=== PATIENT | female | born 1940 | race Caucasian/White ===

== ENCOUNTER 2022-11-12 09:20 | Emergency (ER) | payer BC, MEDICARE, SELFPAY ==
--- NOTE | ~2022-11-12 | CT_ITS ---
EXAMINATION: CT HEAD WITHOUT CONTRAST CLINICAL INFORMATION: Fall, secondary head trauma COMPARISON: None TECHNIQUE: Contiguous axial imaging was performed from the skull base to vertex without intravenous administration of contrast. Additional 2-D coronal and sagittal reformatted images are generated on the CT workstation and uploaded to PACS. This CT examination was performed using dose optimization techniques as appropriate, variously including the following: *Automated exposure control *Adjustment of mA and/or kV according to patient size (this includes techniques or standardized protocols for targeted exams where dose is matched to indication/reason for exam; i.e. extremities or head) *Use of iterative reconstruction technique DLP: 390 mGy-cm FINDINGS: There is no intracranial hemorrhage, hematoma, or extra-axial fluid collection. The ventricles are normal in size. There is no hydrocephalus, edema, or mass effect. The farris-white matter differentiation appears well preserved . There are generalized atrophic changes with prominence of the cortical sulci and fissures and cisterns. There is no visible acute territorial infarct or mass lesion. The calvarium appears intact. There is no pneumocephalus or orbital emphysema. The visualized sinuses and middle ears and mastoid air cells show no significant mucosal thickening. There are no air-fluid levels. CT/CT head/brain wo IV con IMPRESSION: No acute intracranial abnormality.
--- NOTE | ~2022-11-12 | XR_ITS ---
EXAMINATION: PORTABLE CHEST 1 VIEW CLINICAL INFORMATION: Pneumonia? . COMPARISON: 11/12/2022. TECHNIQUE: Portable frontal view of the chest was obtained. FINDINGS: Lungs are mildly hypoexpanded in part related to the significant convex right thoracic and left thoracolumbar scoliotic curve. Chronic appearing reticular markings are again seen bilaterally with a distribution similar to the prior study. No focal superimposed infiltrate, effusion, overt edema, or pneumothorax. Cardiac silhouette within normal limits for the technique. XR/XR chest 1V IMPRESSION: Extensive chronic appearing changes similar to the prior study. No acute superimposed process when compared to the prior study.
--- NOTE | ~2022-11-12 | XR_ITS ---
EXAMINATION: XR KNEE, LEFT CLINICAL INFORMATION: Status post fall. Left knee pain COMPARISON: None TECHNIQUE: Four views of the left knee. FINDINGS: There is severe loss of medial and lateral compartment joint space with minimal medial subluxation of the joint. There is small to moderate joint effusion and superior patellar spurring. Mild osteopenia is noted. No acute fracture seen. XR/XR knee LT 2V IMPRESSION: 1. Severe degenerative changes medial and lateral compartment with mild medial subluxation of the knee joint. 2. Small to moderate joint effusion. 3. No acute fracture seen.
--- NOTE | ~2022-11-12 | XR_ITS ---
EXAMINATION: XR KNEE, RIGHT CLINICAL INFORMATION: Fall, trauma, pain COMPARISON: None TECHNIQUE: AP and crosstable lateral projections of the right knee are obtained. FINDINGS: Prior right knee arthroplasty. Hardware intact. Small suprapatellar effusion. No fracture, dislocation, destructive process, or osteolysis. No fat fluid level on crosstable lateral projection. XR/XR knee RT 2V IMPRESSION: 1. Right knee arthroplasty. Small suprapatellar effusion. No fat-fluid level. 2. No fracture, dislocation, destructive process.
--- NOTE | ~2022-11-12 | XR_ITS ---
EXAMINATION: XR CHEST CLINICAL INFORMATION: Fall, trauma. COMPARISON: None TECHNIQUE: Upright AP view of the chest was obtained. FINDINGS: There are low lung volumes. No pneumothorax, airspace consolidation, or effusion. Mild cardiomegaly. Normal vascularity. No airspace consolidation or groundglass opacity or air bronchograms. The hilar and mediastinal contours are unremarkable. There is a prominent dextrocurvature thoracic spine and a levocurvature of thoracolumbar spine. XR/XR chest 1V IMPRESSION: Low lung volumes. No acute intrathoracic disease.
--- NOTE | ~2022-11-12 | CT_ITS ---
EXAMINATION: CT CERVICAL SPINE WITHOUT CONTRAST CLINICAL INFORMATION: Fall, trauma COMPARISON: CT head 11/12/2022. TECHNIQUE: Multidetector volumetric CT imaging of the cervical spine is performed without contrast in the axial plane. Additional 2D reformatted coronal and sagittal images are generated on the CT workstation and uploaded to PACS. This CT examination was performed using dose optimization techniques as appropriate, variously including the following: *Automated exposure control *Adjustment of mA and/or kV according to patient size (this includes techniques or standardized protocols for targeted exams where dose is matched to indication/reason for exam; i.e. extremities or head) *Use of iterative reconstruction technique DLP: 745 mGy-cm FINDINGS: There is no vertebral compression or visible fracture. No prevertebral soft tissue swelling. The craniocervical junction appears normal. The odontoid appears intact. There are multilevel degenerative disc and degenerative facet changes with variable moderate to prominent disc narrowing and vertebral spurring. There is borderline grade 0-1 spondylolisthesis C2 on C3 and borderline grade 0-1 spondylolisthesis at C7-T1. No perched facet. No apical pneumothorax or pneumomediastinum. CT/CT cervical spine wo IV con IMPRESSION: 1. No acute bony abnormality or prevertebral soft tissue swelling. 2. Multilevel degenerative disc and degenerative facet changes. 3. Borderline grade 0-1 spondylolisthesis C2-C3 and at C7-T1.
[2022-11-12 09:23] VITALS: BP 141/66; PULSE 60; RESP 16; TEMP 36.3; O2SAT 98; BMI 38.9
--- NOTE | 2022-11-12 10:25 | ECG_ITS ---
Test Reason : falls Blood Pressure : / mmHG Vent. Rate : 059 BPM Atrial Rate : 000 BPM P-R Int : 000 ms QRS Dur : 118 ms QT Int : 428 ms P-R-T Axes : 000 -57 041 degrees QTc Int : 423 ms Atrial fibrillation with slow ventricular response Left axis deviation Minimal voltage criteria for LVH, may be normal variant ( Iglesia product ) Anteroseptal infarct , age undetermined Abnormal ECG No previous ECGs available Referred By: Anya Sellers Electronically Signed By:ADRIAN HIDALGO
[2022-11-12 11:17] LABS: MANUAL DIFF FLAG NO
[2022-11-12 11:19] LABS: Basophils Percent Auto 0.3 % (0-2); Eosinophils Absolute Auto 0.2 X10*3/uL (0.0-0.4); Eosinophils Percent Auto 2.9 % (0-4); Hematocrit 36.5 % (37.0-47.0); Hemoglobin 11.9 g/dl (12.0-16.0); Imm Gran Abs Auto 0.02 X10*3/uL (0.00-0.03); Imm Gran Pct Auto 0.3 % (0.0-0.4); Lymphocytes Absolute Auto 1.3 X10*3/uL (1.2-4.9); Lymphocytes Percent Auto 22.1 % (20-40); Mean Corpuscular HGB Conc 32.6 g/dl (31.0-35.0); Mean Corpuscular Hemoglobin 30.4 pg (27.0-33.0); Mean Corpuscular Volume 93.4 fL (80.0-98.0); Mean Platelet Volume 8.6 fL (9.4-12.3); Monocytes Absolute Auto 0.5 X10*3/uL (0.1-1.2); Monocytes Percent Auto 8.5 % (2-11); Neutrophils Absolute Auto 3.8 x10*3/uL (2.0-8.3); Neutrophils Percent Auto 65.9 % (45-73); Platelet Count 202 X10*3/uL (160-400); Red Blood Count 3.91 X10*6/uL (4.20-5.50); Red Cell Distribution Width 14.6 % (11.0-16.0); White Blood Count 5.8 X10*3/uL (4.8-10.8)
[2022-11-12 11:26] LABS: Prothrombin Time 11.3 SEC (10.0-13.1)
[2022-11-12 11:48] VITALS: BP 157/54; PULSE 71; RESP 15; TEMP 36.6; O2SAT 96
--- NOTE | 2022-11-12 11:48 | ED.FALL ---
HPI - Fall General Chief Complaint: Fall <DONNA Wayne Last Filed: 11/12/22 17:26> Stated Complaint: Fall/L knee pain <DONNA Wayne Last Filed: 11/12/22 17:26> Time Seen by Provider: 11/12/22 09:49 <DONNA Wayne Last Filed: 11/12/22 17:26> Source: patient and family <DONNA Wanye Last Filed: 11/12/22 17:26> Mode of arrival: ambulatory <DONNA Wayne Last Filed: 11/12/22 17:26> History of Present Illness HPI Narrative: 82-year-old female with a past medical history of dementia, presenting to ED s/p being found on the floor by family this morning. Patient lives home alone, last seen yesterday afternoon, found on the ground on bilateral knees this morning. per family patient at her baseline at present. Patient offers no complaints at present, no evidence of trauma. Daughter/ sister looking for more help at home as patient becoming increasingly forgetful, forgets to use her cane / walker with increasing falls. Unknown head trauma or LOC. Family denies recent URI symptoms. Denies taking anticoagulation <DONNA Wayne Last Filed: 11/12/22 17:26> MD complaint: fall <DONNA Wayne Last Filed: 11/12/22 17:26> Onset (ago): unknown <DONNA Wayne Last Filed: 11/12/22 17:26> Related Data Home Medications: Home Medications Medication Instructions Recorded Confirmed acetaminophen 500 mg tablet 500 mg PO BID 11/12/22 11/12/22 amlodipine 10 mg tablet 1 tab PO DAILY 11/12/22 11/12/22 atenolol 100 mg tablet 1 tab PO DAILY 11/12/22 11/12/22 celecoxib 200 mg capsule 1 cap PO BID 11/12/22 11/12/22 furosemide 40 mg tablet 1 tab PO DAILY 11/12/22 11/12/22 loperamide 2 mg tablet 3 mg PO TID PRN Diarrhea 11/12/22 11/12/22 losartan 100 mg tablet 1 tab PO DAILY 11/12/22 11/12/22 octreotide,microspheres 30 mg 60 mg IM Q30D 11/12/22 11/12/22 intramuscular susp, extended release (Sandostatin LAR Depot) olanzapine 7.5 mg tablet 1 tab PO DAILY 11/12/22 11/12/22 omeprazole 20 mg capsule,delayed 1 cap PO DAILY 11/12/22 11/12/22 release sertraline 100 mg tablet 1 tab PO DAILY 11/12/22 11/12/22 telotristat ethyl 250 mg tablet 250 tab PO TID 11/12/22 11/12/22 (Xermelo) <DONNA Wayne - Last Filed: 11/12/22 17:26> Allergies/Adverse Reactions: Allergies Allergy/AdvReac Type Severity Reaction Status Date / Time No Known Allergies Allergy Verified 11/12/22 09:23 <DONNA Wayne - Last Filed: 11/12/22 17:26> Review of Systems Review of Systems: ROS limited secondary to patient's baseline mental status <DONNA Wayne - Last Filed: 11/12/22 17:26> Yes all other systems are reviewed and are negative <DONNA Wayne - Last Filed: 11/12/22 17:26> Constitutional: Constitutional: Reports as per HPI <DONNA Wayne - Last Filed: 11/12/22 17:26> [facility] Past Medical History Attestation statement: The following information was validated with the patient. <DONNA Wayne - Last Filed: 11/12/22 17:26> Social History Social History: Social History Alcohol intake: unknown Use of substances other than those prescribed or required for medical reasons: Unknown Advance Directives: Yes Advance Directives on File: No <DONNA Wayne - Last Filed: 11/12/22 17:26> Physical Exam Vital Signs: Vital Signs: Last Vital Signs Temp 98.0 F 11/14/22 05:30 Pulse 72 11/14/22 05:30 Resp 16 11/14/22 05:30 BP 148/78 H 11/14/22 05:30 Pulse Ox 96 11/14/22 05:30 O2 Del Method 11/14/22 05:30 BMI result Body Mass Index 38.9 <Anya Sellers PA - Last Filed: 11/12/22 17:26> Vital Signs: Last Vital Signs Temp 98.0 F 11/14/22 05:30 Pulse 72 11/14/22 05:30 Resp 16 11/14/22 05:30 BP 148/78 H 11/14/22 05:30 Pulse Ox 96 11/14/22 05:30 O2 Del Method 11/14/22 05:30 BMI result Body Mass Index 38.9 <Janene Caal PA - Last Filed: 11/12/22 20:00> Const: General: cooperative and no acute distress <Anya Sellers PA - Last Filed: 11/12/22 17:26> Limitations: other limitations (baseline dementia) <DONNA Wayne - Last Filed: 11/12/22 17:26> HEENT: Head: Yes normal to inspection, Yes atraumatic, No Lundberg's sign and No raccoon eyes <Anya Sellers PA - Last Filed: 11/12/22 17:26> Ears: hearing grossly normal bilaterally <Anya Sellers PA - Last Filed: 11/12/22 17:26> General nose exam: Normal external nose present <DONNA Wayne - Last Filed: 11/12/22 17:26> Face and sinus: Yes normal facial exam <Anya Sellers PA - Last Filed: 11/12/22 17:26> Mouth: Normal oral and palatal mucosa present <DONNA Wayne - Last Filed: 11/12/22 17:26> Throat: Yes posterior oropharynx normal <Anya Sellers PA - Last Filed: 11/12/22 17:26> Eyes: General: appearance normal, both eyes and all related structures <DONNA Wayne - Last Filed: 11/12/22 17:26> Pupils: Equal, round and reactive pupils present <Anya Sellers PA - Last Filed: 11/12/22 17:26> EOM: EOMs intact bilaterally <DONNA Wayne - Last Filed: 11/12/22 17:26> Neck: Neck: Yes normal visual inspection and Yes no meningeal signs <DONNA Wayne Last Filed: 11/12/22 17:26> Resp: Effort & Inspection: normal respiratory effort and no respiratory distress <Anya Sellers PA - Last Filed: 11/12/22 17:26> Auscultation: clear to auscultation bilaterally, no crackles, no rales, no rhonchi and no wheezes <Anya Sellers PA - Last Filed: 11/12/22 17:26> Cardio: Rate: regular rate <Anya Sellers PA - Last Filed: 11/12/22 17:26> Heart sounds: S1 normal heart sound present and S2 normal heart sound present <Anya Sellers PA - Last Filed: 11/12/22 17:26> GI: Inspection: Yes normal to inspection <Anya Sellers PA - Last Filed: 11/12/22 17:26> Palpation (GI): Soft to palpation, nontender, no guarding and not rigid <Anya Sellers PA - Last Filed: 11/12/22 17:26> Back/Spine/Pelvis: Other: No midline thoracic/lumbar spinous tenderness/step-off or deformity <Anya Sellers PA - Last Filed: 11/12/22 17:26> Skin: Rashes: no rashes <Anya Sellers PA - Last Filed: 11/12/22 17:26> Wounds: no wounds <Anya Sellers PA - Last Filed: 11/12/22 17:26> Neuro: Other: Oriented to person and place (baseline) <Anya Sellers PA - Last Filed: 11/12/22 17:26> General: tone normal, moves all extremities, no meningeal signs, no focal motor deficits and CN's II-XI intact bilaterally <Anya Sellers PA - Last Filed: 11/12/22 17:26> Cranial nerves: Yes Equal, round and reactive pupils present <Anya Sellers PA - Last Filed: 11/12/22 17:26> Extrem: Other: pelvis stable. <Anya Sellers PA - Last Filed: 11/12/22 17:26> General: Yes normal to inspection <Anya Sellers PA - Last Filed: 11/12/22 17:26> Right upper extremity: normal to inspection <DONNA Wayne Last Filed: 11/12/22 17:26> Left upper extremity: normal to inspection <DONNA Wayne Last Filed: 11/12/22 17:26> Right lower extremity: normal to inspection <DONNA Wayne Last Filed: 11/12/22 17:26> Left lower extremity: normal to inspection <DONNA Wayne Last Filed: 11/12/22 17:26> Course Course Course Narrative: -1235-- no leukocytosis. H&H stable. BUN elevated to 38. Initial troponin mildly elevated to 6.1 > will obtain 3 hr repeat. BNP 279 XR knee RT 2V IMPRESSION: 1. Right knee arthroplasty. Small suprapatellar effusion. No fat-fluid level. 2. No fracture, dislocation, destructive process. XR knee LT 2V IMPRESSION: 1.? Severe degenerative changes medial and lateral compartment with mild medial subluxation of the knee joint. 2.? Small to moderate joint effusion. 3. ? No acute fracture seen. XR chest 1V IMPRESSION: Low lung volumes. No acute intrathoracic disease. CT head/brain wo IV con IMPRESSION: No acute intracranial abnormality. CT cervical spine wo IV con IMPRESSION: 1. No acute bony abnormality or prevertebral soft tissue swelling. 2. Multilevel degenerative disc and degenerative facet changes. 3. Borderline grade 0-1 spondylolisthesis C2-C3 and at C7-T1. - physical therapy evaluated patient and recommended short-term rehab with transition to long-term rehab/ increased level of care as needed - patient placed in physician observation as needs more time to be evaluated by Case Management for placement -1800--ED care transferred to DONNA Soriano pending CM placement <DONNA Wayne Last Filed: 11/12/22 17:26> Reevaluation(s) Reevaluation #1: I got called to the bedside as patient appears to be altered according to the nurse taking care of this patient. I evaluated patient, patient is restless, is getting up, concerns for possible fall, unable to sleep, for this reason Haldol, Ativan and Benadryl have been put in. I do not suspect any acute processes. Likely dementia/sundowning. <DONNA Fuller - Last Filed: 11/12/22 20:00> Time: 20:00 <DONNA Fuller - Last Filed: 11/12/22 20:00> Medications Administered Generic Name Dose Route Start Last Admin Trade Name Travonq PRN Reason Stop Dose Admin Acetaminophen 650 mg 11/12/22 21:00 11/13/22 20:24 Acetaminophen 325 Mg Tablet PO 650 mg BID KRISTINA Administration Amlodipine Besylate 10 mg 11/13/22 09:00 11/13/22 10:33 Amlodipine Besylate 10 Mg Tablet PO 10 mg DAILY KRISTINA Administration Protocol Atenolol 100 mg 11/13/22 09:00 11/13/22 11:11 Atenolol 100 Mg Tablet PO 100 mg DAILY KRISTINA Administration Protocol Celecoxib 200 mg 11/12/22 21:00 11/13/22 20:24 Celecoxib 200 Mg Capsule PO 200 mg BID KRISTINA Administration Furosemide 40 mg 11/13/22 09:00 11/13/22 09:34 Furosemide 40 Mg Tablet PO 40 mg DAILY KRISTINA Administration Protocol Loperamide HCl 2 mg 11/12/22 16:27 11/13/22 15:57 Loperamide Hcl 2 Mg Capsule PO 2 mg TID PRN Administration Diarrhea Losartan Potassium 100 mg 11/13/22 09:00 11/13/22 10:19 Losartan Potassium 50 Mg Tablet PO 100 mg DAILY KRISTINA Administration Protocol Olanzapine 7.5 mg 11/13/22 09:00 11/13/22 10:21 Olanzapine 7.5 Mg Tablet PO 7.5 mg DAILY KRISTINA Administration Omeprazole 20 mg 11/13/22 06:30 11/14/22 08:11 Omeprazole 20 Mg Capsule.Dr PO 20 mg DAILY@0630 KRISTINA Administration Sertraline HCl 100 mg 11/13/22 09:00 11/13/22 09:34 Sertraline Hcl 100 Mg Tablet PO 100 mg DAILY KRISTINA Administration Discontinued Medications Generic Name Dose Route Start Last Admin Trade Name Travonq PRN Reason Stop Dose Admin Diphenhydramine HCl 50 mg 11/12/22 19:58 11/12/22 20:19 Diphenhydramine Hcl 25 Mg Capsule PO 11/12/22 19:59 50 mg ONCE ONE Administration Haloperidol 5 mg 11/12/22 19:58 11/12/22 21:37 Haloperidol 5 Mg Tablet PO 11/12/22 19:59 5 mg ONCE ONE Administration Lorazepam 1 mg 11/12/22 19:58 11/12/22 20:20 Lorazepam 1 Mg Tablet PO 11/12/22 19:59 1 mg ONCE ONE Administration Octreotide Acetate 60 mg 11/12/22 16:00 11/12/22 18:11 Octreotide Acetate,Mi-Spheres 30 Mg Kit IM Not Given Q30D KRISTINA Olanzapine 7.5 mg 11/12/22 15:46 11/12/22 16:17 Olanzapine 2.5 Mg Tablet PO 11/12/22 15:47 7.5 mg ONCE ONE Administration <DONNA Wayne - Last Filed: 11/12/22 17:26> Medications Administered Generic Name Dose Route Start Last Admin Trade Name Freq PRN Reason Stop Dose Admin Acetaminophen 650 mg 11/12/22 21:00 11/13/22 20:24 Acetaminophen 325 Mg Tablet PO 650 mg BID KRISTINA Administration Amlodipine Besylate 10 mg 11/13/22 09:00 11/13/22 10:33 Amlodipine Besylate 10 Mg Tablet PO 10 mg DAILY KRISTINA Administration Protocol Atenolol 100 mg 11/13/22 09:00 11/13/22 11:11 Atenolol 100 Mg Tablet PO 100 mg DAILY KRISTINA Administration Protocol Celecoxib 200 mg 11/12/22 21:00 11/13/22 20:24 Celecoxib 200 Mg Capsule PO 200 mg BID KRISTINA Administration Furosemide 40 mg 11/13/22 09:00 11/13/22 09:34 Furosemide 40 Mg Tablet PO 40 mg DAILY KRISTINA Administration Protocol Loperamide HCl 2 mg 11/12/22 16:27 11/13/22 15:57 Loperamide Hcl 2 Mg Capsule PO 2 mg TID PRN Administration Diarrhea Losartan Potassium 100 mg 11/13/22 09:00 11/13/22 10:19 Losartan Potassium 50 Mg Tablet PO 100 mg DAILY KRISTINA Administration Protocol Olanzapine 7.5 mg 11/13/22 09:00 11/13/22 10:21 Olanzapine 7.5 Mg Tablet PO 7.5 mg DAILY KRISTINA Administration Omeprazole 20 mg 11/13/22 06:30 11/14/22 08:11 Omeprazole 20 Mg Capsule.Dr PO 20 mg DAILY@0630 KRISTINA Administration Sertraline HCl 100 mg 11/13/22 09:00 11/13/22 09:34 Sertraline Hcl 100 Mg Tablet PO 100 mg DAILY KRISTINA Administration Discontinued Medications Generic Name Dose Route Start Last Admin Trade Name Esperanza PRN Reason Stop Dose Admin Diphenhydramine HCl 50 mg 11/12/22 19:58 11/12/22 20:19 Diphenhydramine Hcl 25 Mg Capsule PO 11/12/22 19:59 50 mg ONCE ONE Administration Haloperidol 5 mg 11/12/22 19:58 11/12/22 21:37 Haloperidol 5 Mg Tablet PO 11/12/22 19:59 5 mg ONCE ONE Administration Lorazepam 1 mg 11/12/22 19:58 11/12/22 20:20 Lorazepam 1 Mg Tablet PO 11/12/22 19:59 1 mg ONCE ONE Administration Octreotide Acetate 60 mg 11/12/22 16:00 11/12/22 18:11 Octreotide Acetate,Mi-Spheres 30 Mg Kit IM Not Given Q30D KRISTINA Olanzapine 7.5 mg 11/12/22 15:46 11/12/22 16:17 Olanzapine 2.5 Mg Tablet PO 11/12/22 15:47 7.5 mg ONCE ONE Administration <DONNA Fuller - Last Filed: 11/12/22 20:00> Medical Decision Making Medical Decision Making MDM Narrative: 82-year-old female with a past medical history of dementia, presenting to ED s/p being found on the floor by family this morning. On exam vital signs stable, NAD, nontoxic appearing, mentating at baseline, no evidence of trauma, no midline spinous tenderness throughout, moving all extremities. Concern for frequent falls with progressive dementia vs rhabdomyolysis. Rule out metabolic and infectious etiologies. Rule out ICH. Low suspicion for severe sepsis this time plan: EKG, labs, UA, CXR, head/C-spine CT, PT/case management consult Please refer to course for remaining clinical decision making, interpretation of labs/imaging results, and discussions with consultants and/or family members. <DONNA Wayne - Last Filed: 11/12/22 17:26> Differential Diagnosis Differential Diagnoses: The differential diagnosis associated with the presentation includes <DONNA Wayne - Last Filed: 11/12/22 17:26> as above <DONNA Wayne - Last Filed: 11/12/22 17:26> Admission/Observation Consideration of admission/observation: Escalation of care including admission/observation considered <DONNA Wayne - Last Filed: 11/12/22 17:26> Consult Healthcare Provider Management of the patient was discussed with: Combination Building Inspector <DONNA Wayne - Last Filed: 11/12/22 17:26> Lab Data MDM Lab Attestation statement: I reviewed the patient's lab results. <DONNA Wayne - Last Filed: 11/12/22 17:26> Result Diagrams: 11/12/22 11:10 11/12/22 11:10 <DONNA Wayne - Last Filed: 11/12/22 17:26> Labs: Lab Results 11/12/22 11/12/22 11/12/22 Range/Units 11:10 11:10 11:10 WBC 5.8 (4.8-10.8) X10*3/uL RBC 3.91 L (4.20-5.50) X10*6/uL Hgb 11.9 L (12.0-16.0) g/dl Hct 36.5 L (37.0-47.0) % MCV 93.4 (80.0-98.0) fL MCH 30.4 (27.0-33.0) pg MCHC 32.6 (31.0-35.0) g/dl RDW 14.6 (11.0-16.0) % Plt Count 202 (160-400) X10*3/uL MPV 8.6 L (9.4-12.3) fL Immature Gran % (Auto) 0.3 (0.0-0.4) % Neut % (Auto) 65.9 (45-73) % Lymph % (Auto) 22.1 (20-40) % [place] % (Auto) 8.5 (2-11) % Eos % (Auto) 2.9 (0-4) % Baso % (Auto) 0.3 (0-2) % Lymph # (Auto) 1.3 (1.2-4.9) X10*3/uL [place] # (Auto) 0.5 (0.1-1.2) X10*3/uL Eos # (Auto) 0.2 (0.0-0.4) X10*3/uL Baso # (Auto) 0.0 (0.0-0.2) X10*3/uL Abs Immat Gran (auto) 0.02 (0.00-0.03) X10*3/uL Absolute Neuts (auto) 3.8 (2.0-8.3) x10*3/uL Absolute Nucleated RBC 0.000 (0.0-0.012) X10*3/uL Nucleated RBC % (auto) 0.0 (0.0-0.2) /100WBC PT 11.3 (10.0-13.1) SEC INR 1.0 (0.9-1.1) Sodium 141 (135-145) mmol/L Potassium 4.9 (3.3-5.1) mmol/L Chloride 103 (96-108) mmol/L Carbon Dioxide 28 (22-29) mmol/L Anion Gap 15 (12-20) BUN 38 H (9-16) mg/dL Creatinine 1.16 (0.5-1.4) mg/dL Estim Creat Clear Calc 31.8 Estimated GFR 45 Random Glucose 109 (60-115) mg/dL Calcium 9.3 (8.4-10.2) mg/dL Magnesium 1.8 (1.6-2.6) mg/dL Total Bilirubin 0.2 (0.0-1.0) mg/dL Direct Bilirubin < 0.2 (0.0-0.5) mg/dL AST 19 (5-31) U/L ALT 7 (0-31) U/L Alkaline Phosphatase 137 H (39-117) U/L Ammonia (13-55) umol/L Total Creatine Kinase 94 (26-140) U/L Troponin I High Sens (<3.5-17.0) ng/L B-Natriuretic Peptide (<100) pg/mL Total Protein 6.5 (6.5-8.0) g/dL Albumin 3.8 (3.5-5.0) g/dL Urine Color Urine Appearance Urine pH (5.0-9.0) Ur Specific [place] (1.005-1.025) Urine Protein (Neg-Trace) mg/dL Urine Glucose (UA) (Negative) mg/dL Urine Ketones (Negative) mg/dL Urine Blood (Negative) Urine Nitrite (Negative) Ur Leukocyte Esterase (Negative) Urine RBC (0-2) /HPF Urine WBC (0-5) /HPF Ur Squamous Epith Cells (0-2) /HPF Urine Bacteria (None Seen) Hyaline Casts (0-2) /LPF Influenza Type A (PCR) (Negative) Influenza Type B (PCR) (Negative) RSV RNA Qual (PCR) (Negative) SARS-CoV-2 RNA (RT-PCR) (Negative) 11/12/22 11/12/22 11/12/22 Range/Units 11:10 11:10 11:27 WBC (4.8-10.8) X10*3/uL RBC (4.20-5.50) X10*6/uL Hgb (12.0-16.0) g/dl Hct (37.0-47.0) % MCV (80.0-98.0) fL MCH (27.0-33.0) pg MCHC (31.0-35.0) g/dl RDW (11.0-16.0) % Plt Count (160-400) X10*3/uL MPV (9.4-12.3) fL Immature Gran % (Auto) (0.0-0.4) % Neut % (Auto) (45-73) % Lymph % (Auto) (20-40) % [place] % (Auto) (2-11) % Eos % (Auto) (0-4) % Baso % (Auto) (0-2) % Lymph # (Auto) (1.2-4.9) X10*3/uL [place] # (Auto) (0.1-1.2) X10*3/uL Eos # (Auto) (0.0-0.4) X10*3/uL Baso # (Auto) (0.0-0.2) X10*3/uL Abs Immat Gran (auto) (0.00-0.03) X10*3/uL Absolute Neuts (auto) (2.0-8.3) x10*3/uL Absolute Nucleated RBC (0.0-0.012) X10*3/uL Nucleated RBC % (auto) (0.0-0.2) /100WBC PT (10.0-13.1) SEC INR (0.9-1.1) Sodium (135-145) mmol/L Potassium (3.3-5.1) mmol/L Chloride (96-108) mmol/L Carbon Dioxide (22-29) mmol/L Anion Gap (12-20) BUN (9-16) mg/dL Creatinine (0.5-1.4) mg/dL Estim Creat Clear Calc Estimated GFR Random Glucose (60-115) mg/dL Calcium (8.4-10.2) mg/dL Magnesium (1.6-2.6) mg/dL Total Bilirubin (0.0-1.0) mg/dL Direct Bilirubin (0.0-0.5) mg/dL AST (5-31) U/L ALT (0-31) U/L Alkaline Phosphatase (39-117) U/L Ammonia (13-55) umol/L Total Creatine Kinase (26-140) U/L Troponin I High Sens 6.1 (<3.5-17.0) ng/L B-Natriuretic Peptide 279 H (<100) pg/mL Total Protein (6.5-8.0) g/dL Albumin (3.5-5.0) g/dL Urine Color Urine Appearance Urine pH (5.0-9.0) Ur Specific [place] (1.005-1.025) Urine Protein (Neg-Trace) mg/dL Urine Glucose (UA) (Negative) mg/dL Urine Ketones (Negative) mg/dL Urine Blood (Negative) Urine Nitrite (Negative) Ur Leukocyte Esterase (Negative) Urine RBC (0-2) /HPF Urine WBC (0-5) /HPF Ur Squamous Epith Cells (0-2) /HPF Urine Bacteria (None Seen) Hyaline Casts (0-2) /LPF Influenza Type A (PCR) NEGATIVE (Negative) Influenza Type B (PCR) NEGATIVE (Negative) RSV RNA Qual (PCR) NEGATIVE (Negative) SARS-CoV-2 RNA (RT-PCR) NEGATIVE (Negative) 11/12/22 11/12/22 11/12/22 Range/Units 14:38 14:53 18:13 WBC (4.8-10.8) X10*3/uL RBC (4.20-5.50) X10*6/uL Hgb (12.0-16.0) g/dl Hct (37.0-47.0) % MCV (80.0-98.0) fL MCH (27.0-33.0) pg MCHC (31.0-35.0) g/dl RDW (11.0-16.0) % Plt Count (160-400) X10*3/uL MPV (9.4-12.3) fL Immature Gran % (Auto) (0.0-0.4) % Neut % (Auto) (45-73) % Lymph % (Auto) (20-40) % [place] % (Auto) (2-11) % Eos % (Auto) (0-4) % Baso % (Auto) (0-2) % Lymph # (Auto) (1.2-4.9) X10*3/uL [place] # (Auto) (0.1-1.2) X10*3/uL Eos # (Auto) (0.0-0.4) X10*3/uL Baso # (Auto) (0.0-0.2) X10*3/uL Abs Immat Gran (auto) (0.00-0.03) X10*3/uL Absolute Neuts (auto) (2.0-8.3) x10*3/uL Absolute Nucleated RBC (0.0-0.012) X10*3/uL Nucleated RBC % (auto) (0.0-0.2) /100WBC PT (10.0-13.1) SEC INR (0.9-1.1) Sodium (135-145) mmol/L Potassium (3.3-5.1) mmol/L Chloride (96-108) mmol/L Carbon Dioxide (22-29) mmol/L Anion Gap (12-20) BUN (9-16) mg/dL Creatinine (0.5-1.4) mg/dL Estim Creat Clear Calc Estimated GFR Random Glucose (60-115) mg/dL Calcium (8.4-10.2) mg/dL Magnesium (1.6-2.6) mg/dL Total Bilirubin (0.0-1.0) mg/dL Direct Bilirubin (0.0-0.5) mg/dL AST (5-31) U/L ALT (0-31) U/L Alkaline Phosphatase (39-117) U/L Ammonia 43 (13-55) umol/L Total Creatine Kinase (26-140) U/L Troponin I High Sens 5.0 (<3.5-17.0) ng/L B-Natriuretic Peptide (<100) pg/mL Total Protein (6.5-8.0) g/dL Albumin (3.5-5.0) g/dL Urine Color Yellow Urine Appearance Clear Urine pH 5.5 (5.0-9.0) Ur Specific [place] 1.010 (1.005-1.025) Urine Protein Negative (Neg-Trace) mg/dL Urine Glucose (UA) Negative (Negative) mg/dL Urine Ketones Negative (Negative) mg/dL Urine Blood Trace H (Negative) Urine Nitrite Negative (Negative) Ur Leukocyte Esterase Negative (Negative) Urine RBC 0-2 (0-2) /HPF Urine WBC 0-5 (0-5) /HPF Ur Squamous Epith Cells 0-2 (0-2) /HPF Urine Bacteria None Seen (None Seen) Hyaline Casts 0-2 (0-2) /LPF Influenza Type A (PCR) (Negative) Influenza Type B (PCR) (Negative) RSV RNA Qual (PCR) (Negative) SARS-CoV-2 RNA (RT-PCR) (Negative) <DONNA Wayne - Last Filed: 11/12/22 17:26> Lab Results 11/12/22 11/12/22 11/12/22 Range/Units 11:10 11:10 11:10 WBC 5.8 (4.8-10.8) X10*3/uL RBC 3.91 L (4.20-5.50) X10*6/uL Hgb 11.9 L (12.0-16.0) g/dl Hct 36.5 L (37.0-47.0) % MCV 93.4 (80.0-98.0) fL MCH 30.4 (27.0-33.0) pg MCHC 32.6 (31.0-35.0) g/dl RDW 14.6 (11.0-16.0) % Plt Count 202 (160-400) X10*3/uL MPV 8.6 L (9.4-12.3) fL Immature Gran % (Auto) 0.3 (0.0-0.4) % Neut % (Auto) 65.9 (45-73) % Lymph % (Auto) 22.1 (20-40) % [place] % (Auto) 8.5 (2-11) % Eos % (Auto) 2.9 (0-4) % Baso % (Auto) 0.3 (0-2) % Lymph # (Auto) 1.3 (1.2-4.9) X10*3/uL [place] # (Auto) 0.5 (0.1-1.2) X10*3/uL Eos # (Auto) 0.2 (0.0-0.4) X10*3/uL Baso # (Auto) 0.0 (0.0-0.2) X10*3/uL Abs Immat Gran (auto) 0.02 (0.00-0.03) X10*3/uL Absolute Neuts (auto) 3.8 (2.0-8.3) x10*3/uL Absolute Nucleated RBC 0.000 (0.0-0.012) X10*3/uL Nucleated RBC % (auto) 0.0 (0.0-0.2) /100WBC PT 11.3 (10.0-13.1) SEC INR 1.0 (0.9-1.1) Sodium 141 (135-145) mmol/L Potassium 4.9 (3.3-5.1) mmol/L Chloride 103 (96-108) mmol/L Carbon Dioxide 28 (22-29) mmol/L Anion Gap 15 (12-20) BUN 38 H (9-16) mg/dL Creatinine 1.16 (0.5-1.4) mg/dL Estim Creat Clear Calc 31.8 Estimated GFR 45 Random Glucose 109 (60-115) mg/dL Calcium 9.3 (8.4-10.2) mg/dL Magnesium 1.8 (1.6-2.6) mg/dL Total Bilirubin 0.2 (0.0-1.0) mg/dL Direct Bilirubin < 0.2 (0.0-0.5) mg/dL AST 19 (5-31) U/L ALT 7 (0-31) U/L Alkaline Phosphatase 137 H (39-117) U/L Ammonia (13-55) umol/L Total Creatine Kinase 94 (26-140) U/L Troponin I High Sens (<3.5-17.0) ng/L B-Natriuretic Peptide (<100) pg/mL Total Protein 6.5 (6.5-8.0) g/dL Albumin 3.8 (3.5-5.0) g/dL Urine Color Urine Appearance Urine pH (5.0-9.0) Ur Specific [place] (1.005-1.025) Urine Protein (Neg-Trace) mg/dL Urine Glucose (UA) (Negative) mg/dL Urine Ketones (Negative) mg/dL Urine Blood (Negative) Urine Nitrite (Negative) Ur Leukocyte Esterase (Negative) Urine RBC (0-2) /HPF Urine WBC (0-5) /HPF Ur Squamous Epith Cells (0-2) /HPF Urine Bacteria (None Seen) Hyaline Casts (0-2) /LPF Influenza Type A (PCR) (Negative) Influenza Type B (PCR) (Negative) RSV RNA Qual (PCR) (Negative) SARS-CoV-2 RNA (RT-PCR) (Negative) 11/12/22 11/12/22 11/12/22 Range/Units 11:10 11:10 11:27 WBC (4.8-10.8) X10*3/uL RBC (4.20-5.50) X10*6/uL Hgb (12.0-16.0) g/dl Hct (37.0-47.0) % MCV (80.0-98.0) fL MCH (27.0-33.0) pg MCHC (31.0-35.0) g/dl RDW (11.0-16.0) % Plt Count (160-400) X10*3/uL MPV (9.4-12.3) fL Immature Gran % (Auto) (0.0-0.4) % Neut % (Auto) (45-73) % Lymph % (Auto) (20-40) % [place] % (Auto) (2-11) % Eos % (Auto) (0-4) % Baso % (Auto) (0-2) % Lymph # (Auto) (1.2-4.9) X10*3/uL [place] # (Auto) (0.1-1.2) X10*3/uL Eos # (Auto) (0.0-0.4) X10*3/uL Baso # (Auto) (0.0-0.2) X10*3/uL Abs Immat Gran (auto) (0.00-0.03) X10*3/uL Absolute Neuts (auto) (2.0-8.3) x10*3/uL Absolute Nucleated RBC (0.0-0.012) X10*3/uL Nucleated RBC % (auto) (0.0-0.2) /100WBC PT (10.0-13.1) SEC INR (0.9-1.1) Sodium (135-145) mmol/L Potassium (3.3-5.1) mmol/L Chloride (96-108) mmol/L Carbon Dioxide (22-29) mmol/L Anion Gap (12-20) BUN (9-16) mg/dL Creatinine (0.5-1.4) mg/dL Estim Creat Clear Calc Estimated GFR Random Glucose (60-115) mg/dL Calcium (8.4-10.2) mg/dL Magnesium (1.6-2.6) mg/dL Total Bilirubin (0.0-1.0) mg/dL Direct Bilirubin (0.0-0.5) mg/dL AST (5-31) U/L ALT (0-31) U/L Alkaline Phosphatase (39-117) U/L Ammonia (13-55) umol/L Total Creatine Kinase (26-140) U/L Troponin I High Sens 6.1 (<3.5-17.0) ng/L B-Natriuretic Peptide 279 H (<100) pg/mL Total Protein (6.5-8.0) g/dL Albumin (3.5-5.0) g/dL Urine Color Urine Appearance Urine pH (5.0-9.0) Ur Specific [place] (1.005-1.025) Urine Protein (Neg-Trace) mg/dL Urine Glucose (UA) (Negative) mg/dL Urine Ketones (Negative) mg/dL Urine Blood (Negative) Urine Nitrite (Negative) Ur Leukocyte Esterase (Negative) Urine RBC (0-2) /HPF Urine WBC (0-5) /HPF Ur Squamous Epith Cells (0-2) /HPF Urine Bacteria (None Seen) Hyaline Casts (0-2) /LPF Influenza Type A (PCR) NEGATIVE (Negative) Influenza Type B (PCR) NEGATIVE (Negative) RSV RNA Qual (PCR) NEGATIVE (Negative) SARS-CoV-2 RNA (RT-PCR) NEGATIVE (Negative) 11/12/22 11/12/22 11/12/22 Range/Units 14:38 14:53 18:13 WBC (4.8-10.8) X10*3/uL RBC (4.20-5.50) X10*6/uL Hgb (12.0-16.0) g/dl Hct (37.0-47.0) % MCV (80.0-98.0) fL MCH (27.0-33.0) pg MCHC (31.0-35.0) g/dl RDW (11.0-16.0) % Plt Count (160-400) X10*3/uL MPV (9.4-12.3) fL Immature Gran % (Auto) (0.0-0.4) % Neut % (Auto) (45-73) % Lymph % (Auto) (20-40) % [place] % (Auto) (2-11) % Eos % (Auto) (0-4) % Baso % (Auto) (0-2) % Lymph # (Auto) (1.2-4.9) X10*3/uL [place] # (Auto) (0.1-1.2) X10*3/uL Eos # (Auto) (0.0-0.4) X10*3/uL Baso # (Auto) (0.0-0.2) X10*3/uL Abs Immat Gran (auto) (0.00-0.03) X10*3/uL Absolute Neuts (auto) (2.0-8.3) x10*3/uL Absolute Nucleated RBC (0.0-0.012) X10*3/uL Nucleated RBC % (auto) (0.0-0.2) /100WBC PT (10.0-13.1) SEC INR (0.9-1.1) Sodium (135-145) mmol/L Potassium (3.3-5.1) mmol/L Chloride (96-108) mmol/L Carbon Dioxide (22-29) mmol/L Anion Gap (12-20) BUN (9-16) mg/dL Creatinine (0.5-1.4) mg/dL Estim Creat Clear Calc Estimated GFR Random Glucose (60-115) mg/dL Calcium (8.4-10.2) mg/dL Magnesium (1.6-2.6) mg/dL Total Bilirubin (0.0-1.0) mg/dL Direct Bilirubin (0.0-0.5) mg/dL AST (5-31) U/L ALT (0-31) U/L Alkaline Phosphatase (39-117) U/L Ammonia 43 (13-55) umol/L Total Creatine Kinase (26-140) U/L Troponin I High Sens 5.0 (<3.5-17.0) ng/L B-Natriuretic Peptide (<100) pg/mL Total Protein (6.5-8.0) g/dL Albumin (3.5-5.0) g/dL Urine Color Yellow Urine Appearance Clear Urine pH 5.5 (5.0-9.0) Ur Specific [place] 1.010 (1.005-1.025) Urine Protein Negative (Neg-Trace) mg/dL Urine Glucose (UA) Negative (Negative) mg/dL Urine Ketones Negative (Negative) mg/dL Urine Blood Trace H (Negative) Urine Nitrite Negative (Negative) Ur Leukocyte Esterase Negative (Negative) Urine RBC 0-2 (0-2) /HPF Urine WBC 0-5 (0-5) /HPF Ur Squamous Epith Cells 0-2 (0-2) /HPF Urine Bacteria None Seen (None Seen) Hyaline Casts 0-2 (0-2) /LPF Influenza Type A (PCR) (Negative) Influenza Type B (PCR) (Negative) RSV RNA Qual (PCR) (Negative) SARS-CoV-2 RNA (RT-PCR) (Negative) <DONNA Fuller - Last Filed: 11/12/22 20:00> Independent Interpretation I performed an independent interpretation of an: EKG ( my interpretation EKG AFib with rate of 59. Old inferior and anterior septal FL. No STEMI.) <DONNA Wayne - Last Filed: 11/12/22 17:26> Radiology Impression Discussion of test interpretation with radiology: I have reviewed the radiologist's reading. <DONNA Wayne - Last Filed: 11/12/22 17:26> Independent Historian daughter and sister <DONNA Wayne - Last Filed: 11/12/22 17:26> Discharge Plan Discharge Clinical Impression: Frequent falls, Dementia <DONNA Wayne - Last Filed: 11/12/22 17:26> Patient Disposition: Still a Patient <DONNA Wayne - Last Filed: 11/12/22 17:26> Prescriptions: No Action celecoxib 200 mg capsule 1 cap PO BID furosemide 40 mg tablet 1 tab PO DAILY atenolol 100 mg tablet 1 tab PO DAILY sertraline 100 mg tablet 1 tab PO DAILY olanzapine 7.5 mg tablet 1 tab PO DAILY amlodipine 10 mg tablet 1 tab PO DAILY omeprazole 20 mg capsule,delayed release(DR/EC) 1 cap PO DAILY losartan 100 mg tablet 1 tab PO DAILY Xermelo 250 mg tablet 250 tab PO TID loperamide 2 mg Tablet 3 mg PO TID PRN (Reason: Diarrhea) acetaminophen 500 mg Tablet 500 mg PO BID Sandostatin LAR Depot 30 mg suspension,extended rel recon 60 mg IM Q30D <DONNA Wayne - Last Filed: 11/12/22 17:26>
[2022-11-12 12:04] LABS: Alanine Aminotransferase 7 U/L (0-31); Albumin Level 3.8 g/dL (3.5-5.0); Alkaline Phosphatase 137 U/L (39-117); Anion Gap 15 (12-20); Aspartate Amino Transferase 19 U/L (5-31); B Type Natriuretic Peptide 279 pg/mL (<100); Bilirubin Direct < 0.2 mg/dL (0.0-0.5); Bilirubin Total 0.2 mg/dL (0.0-1.0); Blood Urea Nitrogen 38 mg/dL (9-16); Calcium 9.3 mg/dL (8.4-10.2); Carbon Dioxide 28 mmol/L (22-29); Chloride 103 mmol/L (96-108); Creatinine Clr Calc Pharmacy 31.8; Estimated Glomerular Filt Rate 45; Glucose Random 109 mg/dL (60-115); Magnesium 1.8 mg/dL (1.6-2.6); Potassium 4.9 mmol/L (3.3-5.1); Sodium 141 mmol/L (135-145); Total Protein 6.5 g/dL (6.5-8.0)
[2022-11-12 12:07] LABS: Troponin-I High Sensitivity 6.1 ng/L (<3.5-17.0)
--- NOTE | 2022-11-12 12:14 | PHA.MEDREC ---
Pharmacy Consult ? Medication Reconciliation Pharmacy has completed the medication reconciliation.
[2022-11-12 12:15] LABS: Influenza A PCR NEGATIVE (Negative); Influenza B PCR NEGATIVE (Negative); Resp Syncy Virus RNA Qual PCR NEGATIVE (Negative); SARS COV2 PCR INHOUSE NEGATIVE (Negative)
[2022-11-12 13:35] VITALS: BP 157/54; PULSE 71; O2SAT 96
[2022-11-12 14:54] LABS: Ammonia 43 umol/L (13-55)
--- NOTE | 2022-11-12 15:16 | MHC.CM.ED ---
Received case management consult from Anya THOMPSON. Patient to the ER due to a fall with knee pain. Work up essentially negative. Physical therapy eval completed. Short term rehab is recommended. Met with patient, daughter Teodora and sister, Vira. Patient lives alone, ambulates with a cane when she remembers and had no services prior to coming to the ER. PCP verified. Patient received 5 Pfizer vaccines. Family is requesting referral to [facility]. Referral made via [facility]. HCP provided by family is not valid because there is only 1 witness. Patient has dementia at baseline but is able to desingate her daughter and sister as health care proxies. HCP completed, signed and witnessed. Original given to patient. Continue to monitor for d/c needs.
[2022-11-12] MEDS: OLANZapine 2.5 MG TABLET 7.5 MG PO (16:17)
--- NOTE | 2022-11-12 17:21 | MHC.CM.ED ---
Addendum entered by Anita Gonzalez 11/12/22 18:56: CM called and left message with Joellen Alston, Warehouse Shipping Supervisor for [facility] ([phone]) regarding bed availability at facility. CM spoke with daughter, Teodora Siu ([phone]) at the bedside. Teodora is quite upset. Per Joellen, pt's primary insurance, [employer] has declined payment for STR. Pt has Medicare part A, but it is secondary. Teodora did ask facility if they could pay for a month of STR. Facility told her the monthly rate is $12,500. Family cannot pay privately. STR recommended STR with transition to LTC.Teodora is requesting referral to another facility. CM explained to Teodora that if insurance has denied payment, then it would be for any facility. She is very upset. Encouraged Teodora to call the insurance company an appeal the determination that STR will not be covered. Teodora called at 1630, insurance company was closed. Encouraged Teodora to call first thing in the morning. Pt will remain in ED over flow in hospital bed, awaiting insurance company determination. CM to follow for discharge planning. Original Note: CM received notification of no beds at [facility]. CM spoke with daughter, Teodora Siu. Teodora tells CM that they do have beds and her mother will be on the dementia unit.
[2022-11-12 18:20] LABS: Appearance Urine Clear; Color Urine Yellow; Glucose Urine UA Negative (Negative); Leukocyte Esterase Urine Negative (Negative); Nitrite Urine Negative (Negative); PH 5.5 (5.0-9.0); UMIC TRIGGER UACC YES; Urine Blood Trace (Negative); Urine Ketones Negative (Negative); Urine Protein Negative (Neg-Trace)
[2022-11-12 18:23] LABS: Bacteria Urine None Seen (None Seen); Hyaline Casts Urine 0-2 /LPF (0-2); RBC Urine 0-2 /HPF (0-2); Squamous Epithelial Cell Urine 0-2 /HPF (0-2); WBC Urine 0-5 /HPF (0-5)
[2022-11-12 19:27] VITALS: BP 161/76; BP 177/105; PULSE 75; PULSE 82
[2022-11-12 19:28] VITALS: BP 133/68; PULSE 115
--- NOTE | 2022-11-12 20:00 | PC.NURSE ---
This RN contacted by Julee RN. Julee expressing concern regarding pt, per Julee, she is confused and trying to get OOB. Julee requesting sitter. Christie THOMPSON going to [facility] to assess pt. Per Christie, plan for PO meds, pt has a hx of Dementia. Sitter @ bedside for safety concerns. Nursing railroad supervisor of engines aware.
[2022-11-12] MEDS: Acetaminophen 325 MG TABLET 650 MG PO (20:19)
[2022-11-12] MEDS: diphenhydrAMINE HCL 25 MG CAPSULE 50 MG PO (20:19)
[2022-11-12] MEDS: LORazepam 1 MG TABLET PO (20:20)
[2022-11-12] MEDS: Celecoxib 200 MG CAPSULE PO (20:20)
--- NOTE | 2022-11-12 21:07 | PC.NURSE ---
Per RN, pt resting in bed, appears calm after PO meds. Per Christie, pt no longer requires a sitter. Camera in place as a precaution.
[2022-11-12] MEDS: HaloperidoL 5 MG TABLET PO (21:37)
[2022-11-12 22:34] VITALS: BP 162/87; PULSE 79; RESP 16; TEMP 36.6; O2SAT 95
--- NOTE | 2022-11-12 22:36 | MHC.EDTECH ---
this pct just assumed care of patient at this time ,patient is very restless rn aware ,vitals sign taken .
--- NOTE | 2022-11-12 23:07 | MHC.EDTECH ---
patient asked to use bathroom ,was assisted unto bedside commode ,,but did not do anything ,assisted back to bed ,warm blanket given ,patient observer in room.
--- NOTE | 2022-11-12 23:56 | MHC.EDTECH ---
0000 ROUNDING DONE ,PATIENT AWAKE PLAYING WITH HER BLANKET ,SITTER AT BEDSIDE .
--- NOTE | 2022-11-13 00:24 | PC.NURSE ---
this rn assumed care of pt at 2300. pt was medicated by previous RN per dec. pt is resting in bed, turning self side to side, pulling at pillows/linens. sitter at bedside. camera on. bed alarm on. will continue to monitor pt.
--- NOTE | 2022-11-13 02:17 | MHC.EDTECH ---
PATIENT UP TO BEDSIDE COMMODE ,VOIDED LARGE AMOUNT OF URINE AN CARE GIVEN ,BACK IN BED ,SITTER AT BEDSIDE .
--- NOTE | 2022-11-13 04:06 | MHC.EDTECH ---
0400 rounding done ,patient awake in bed .sitter at bedside .
[2022-11-13 06:00] VITALS: BP 145/70; PULSE 72; RESP 16; TEMP 36.3; O2SAT 95
--- NOTE | 2022-11-13 06:00 | MHC.EDTECH ---
0600 ROUNDING AND VITALS SIGN TAKEN ,PATIENT ASLEEP AND CLEAN AND DRY ,SITTER AT BEDSIDE .
--- NOTE | 2022-11-13 07:53 | MHC.EDTECH ---
Pt out of bed. Able to assist to commode. Pt returned to bed. Bed in low, locked position. Bed alarm on.
[2022-11-13] MEDS: Acetaminophen 325 MG TABLET 650 MG PO ×2 (09:33→20:24)
[2022-11-13] MEDS: Sertraline HCL 100 MG TABLET PO (09:34)
[2022-11-13] MEDS: Omeprazole 20 MG CAPSULE.DR PO (09:34)
[2022-11-13] MEDS: Furosemide 40 MG TABLET PO (09:34)
--- NOTE | 2022-11-13 09:36 | MHC.EDTECH ---
Emptied cammode replaced liner. Lisette Horner
--- NOTE | 2022-11-13 09:45 | PC.NURSE ---
PT ALERT, ORIENTED TO SELF, SHE DENIES PAIN, PT REQUESTS TOILET, SHE WAS ASSISTED TO BEDSIDE COMMODE, A.M. CARE DONE, MEDS GIVEN DOCUMENTED.
--- NOTE | 2022-11-13 09:53 | MHC.EDTECH ---
Vitals: Hr 71, RR- 16, BP pt refused, O2- 97% RA
[2022-11-13 09:55] VITALS: BP 170/83; PULSE 87; RESP 16; O2SAT 97
[2022-11-13] MEDS: Losartan Potassium 50 MG TABLET 100 MG PO (10:19)
[2022-11-13] MEDS: Celecoxib 200 MG CAPSULE PO ×2 (10:20→20:24)
[2022-11-13] MEDS: OLANZapine 7.5 MG TABLET PO (10:21)
[2022-11-13] MEDS: amLODIPine Besylate 10 MG TABLET PO (10:33)
--- NOTE | 2022-11-13 10:45 | PC.NURSE ---
MEDS GIVEN LATE D/T NOT AVAILABLE [facility] PHARMACY WAS NOTIFIED BY THIS RN.
[2022-11-13] MEDS: atenoloL 100 MG TABLET PO (11:11)
--- NOTE | 2022-11-13 13:45 | MHC.CM.ED ---
Patient remains in ER [facility]. Received telephone call from patient's daughter, Teodora, stating she spoke with [facility] and they don't have anything in their system about insurance auth for STR. T/W left a message with Joellen, admissions and acquisition marketing manager requesting a return telephone call. Received additional telephone call from patient's daughter, Teodora, requesting referral to [facility]. Referral made. Facility does not have a female bed. Facility is also concerned patient's family wants patient in computer terminal operator care. Their business office would need to go over financials with family. Left another voicemail for Joellen at [facility] requesting return telephone call. Teodora is currently in overflow unit requesting to see CM. Unfortunately T/W is not able to physically meet with Teodora at this time. Margarita HUSSEIN has been made aware and asked to tell Teodora CM can call her if she doesn't want to wait to see case management. Continue to monitor for d/c needs.
--- NOTE | 2022-11-13 14:30 | PC.NURSE ---
PT'S DAUGHTER VISITING. SHE ASSISTED HER MOM TO THE COMMODE. DAUGHTER REQUESTED TO SPEAK WITH AVIONICS SYSTEM ENGINEER, KEENAN SHARMAFINANCE INSURANCE MANAGER AWARE.
--- NOTE | 2022-11-13 14:36 | MHC.CM.ED ---
Met with patient's daughter/HCP, Teodora, in regards to discharge planning. Teodora aware [facility] not able to offer a bed and [facility] does not have a female bed to offer. Teodora agreeable to referral being broadcasted in [facility]. Referral broadcasted. Continue to monitor for d/c needs.
[2022-11-13] MEDS: Loperamide HCl 2 MG CAPSULE PO (15:57)
[2022-11-13 17:28] VITALS: BP 133/68; PULSE 66; RESP 16; TEMP 36.4; O2SAT 97
--- NOTE | 2022-11-13 17:33 | PC.NURSE ---
2 EPISODES OF DIARRHEA, IMODIUM GIVEN DOCUMENTED, EFFECTIVENESS PENDING.
--- NOTE | 2022-11-13 18:02 | MHC.CM.ED ---
Spoke with pt daughter, Teodora on the telephone. Teodora is requesting CM speak with [facility] with regards to memory care bed. Request made in [facility]. Teodora is very stressed. Trying to do right by her mother. Teodora has been working with [facility] [employer] Dr[employer] Shar Agrawal and with [facility] to work on and complete MH application. Teodora aware that [facility] can only offer STR, no LTC. [facility]. Waiting to hear from [facility]. Medicare A should be covering STR per [employer]. CM will continue to follow for bed offers.
--- NOTE | 2022-11-13 20:30 | PC.NURSE ---
Addendum entered by Aleisha Jenkins RN 11/14/22 06:55: Report given to KEENAN Castillo Original Note: report received from KEENAN Avila pt alert and oriented x2 resting in bed no signs of acute distress notice close monitoring maintained breathing equally unlabored
[2022-11-14 05:30] VITALS: BP 148/78; PULSE 72; RESP 16; TEMP 36.7; O2SAT 96
[2022-11-14] MEDS: Omeprazole 20 MG CAPSULE.DR PO (08:11)
[2022-11-14 09:04] VITALS: BP 145/81; PULSE 84; RESP 16; TEMP 36.9; O2SAT 96
[2022-11-14] MEDS: Acetaminophen 325 MG TABLET 650 MG PO ×2 (09:45→20:17)
[2022-11-14] MEDS: atenoloL 100 MG TABLET PO (09:45)
[2022-11-14] MEDS: Furosemide 40 MG TABLET PO (09:46)
[2022-11-14] MEDS: Losartan Potassium 50 MG TABLET 100 MG PO (09:46)
[2022-11-14] MEDS: amLODIPine Besylate 10 MG TABLET PO (09:46)
[2022-11-14] MEDS: OLANZapine 7.5 MG TABLET PO (09:46)
[2022-11-14] MEDS: Sertraline HCL 100 MG TABLET PO (09:46)
--- NOTE | 2022-11-14 11:05 | MHC.CM.ED ---
Addendum entered by Simran Foster 11/14/22 12:51: [facility] retracted bed offer. Spoke with patient's daughter/HCP, Teodora, via telephone at [phone]. Teodora aware no other bed offers have been made at this time. Teodora does not feel patient can safely return home. Teodora agreeable to referral being broadcasted further out. Referral broadcasted within 50 miles. Original Note: Patient remains in ER. [facility] doesn't have a female bed. [facility] doesn't have a female bed. [facility] is willing to offer a bed for STR with the expectation that patient will transfer to another facility for intermediate teacher care because [facility] doesn't have a LTC. Spoke with patient's daughter/HCP, Teodora via telephone. Teodora agreeable to transfer to [facility]. [facility] booked for 1pm. Med nec with chart. Patient, daughter Teodora, Rhona RN and Odette THOMPSON aware. Continue to monitor for d/c needs.
[2022-11-14] MEDS: Celecoxib 200 MG CAPSULE PO ×2 (11:30→20:21)
--- NOTE | 2022-11-14 14:43 | MHC.CM.ED ---
Received telephone call from patient's daughter/HCP, Teodora. Teodora states she spoke with someone in [facility] office. Teodora no longer has funds to pay for placement for patient. Teodora also states The [email or web address] program will not be able to file patient's [facility] application until next month because they have reached their quota for the month.
[2022-11-14 17:26] VITALS: BP 128/78; PULSE 58; RESP 18; TEMP 36.3; O2SAT 95
--- NOTE | 2022-11-14 21:21 | MHC.CM.ED ---
JOSE ROBERTO spoke with daughter, Teodora at patient's bedside. Aware that Francisco J is reviewing and CM is waiting on 9 facilities in the [place] area. Teodora tells CM her mother is on a waiting list for [facility], but it has only been a few months. Teodora is working with a [employer] counselor to complete the MH application. She expects to submit the application on Saturday11/19/22. Enc Teodora to keep CM informed of her progress. Teodora is aware that there are limited LTC beds available. Teodora tells JOSE ROBERTO she cannot care for her mother at home and does not have funds for 13/05 care. CM continuing to follow for discharge planning.
[2022-11-14 21:58] VITALS: BP 139/69; PULSE 57; RESP 18; TEMP 36.9; O2SAT 95
[2022-11-15] VITALS: BP 138/78; PULSE 71; RESP 20; TEMP 36.4; O2SAT 94
[2022-11-15] MEDS: Omeprazole 20 MG CAPSULE.DR PO (05:40)
[2022-11-15 06:00] VITALS: BP 125/67; PULSE 68; RESP 16; TEMP 36.8; O2SAT 94
[2022-11-15] MEDS: Acetaminophen 325 MG TABLET 650 MG PO ×2 (10:12→20:18)
[2022-11-15] MEDS: OLANZapine 7.5 MG TABLET PO (10:12)
[2022-11-15] MEDS: Sertraline HCL 100 MG TABLET PO (10:12)
[2022-11-15] MEDS: amLODIPine Besylate 10 MG TABLET PO (10:12)
[2022-11-15] MEDS: Celecoxib 200 MG CAPSULE PO ×2 (10:12→20:18)
[2022-11-15] MEDS: Furosemide 40 MG TABLET PO (10:12)
[2022-11-15] MEDS: atenoloL 100 MG TABLET PO (10:12)
[2022-11-15] MEDS: Losartan Potassium 50 MG TABLET 100 MG PO (10:13)
[2022-11-15 16:18] VITALS: BP 141/73; PULSE 75; TEMP 36.9; O2SAT 95
--- NOTE | 2022-11-15 19:24 | MHC.CM.ED ---
Spoke with daughter Teodora Siu at her request. Teodora has been working with [facility] to complete MH fabiola. Expects MH fabiola to be completed hopefully by tomorrow, Saturday at the latest. Shazia Smith from [facility] was at [facility] today and according to Teodora, spoke with Shazia Rajput (nurse administrator) and Sona Lawson (S.W.) who informed her that there was 1 female dementia bed open. Teodora is willing to speak with anyone at the facility and to share any needed financials with the facility, pending MH fabiola approval. Request sent to [facility]Note 3[facility] via [id number].
[2022-11-15 20:08] VITALS: BP 124/70; PULSE 64; RESP 20; TEMP 36.9; O2SAT 96
[2022-11-15] MEDS: Loperamide HCl 2 MG CAPSULE PO (20:20)
--- NOTE | 2022-11-15 22:46 | PC.NURSE ---
Assumed care of patient approx. 1900. Patient is alert, arousable, confused, follows commands, SCHWARZ weakly. No behavioral or verbal indicator of pain. +pulses, warm, -edema. No IV access/not required. LS CTA bilaterally, remains on RA. Patient experienced *2 large, loose/soft stools thus far. Recvd PRN loperamide to assist. +BS*4, soft, NT/ND. Voiding in commode. Note patient has right elbow erythema, non-tender; negative sign of infection. Skin is C/D/I, no breaks noted. Bedisde sitter to maintain patient safety secondary to impulsiveness, confusion to situation and surroundings. Immediate care needs addressed. Presently in bed resting.
[2022-11-16 01:36] VITALS: BP 152/85; PULSE 79; RESP 18; TEMP 36.7; O2SAT 95
--- NOTE | 2022-11-16 03:14 | MHC.EDTECH ---
pt is resting peacefully and she has a 1:1 sitting with her
[2022-11-16] MEDS: Sertraline HCL 100 MG TABLET PO (09:28)
[2022-11-16] MEDS: Losartan Potassium 50 MG TABLET 100 MG PO (09:28)
[2022-11-16 09:29] VITALS: BP 125/83; PULSE 75; RESP 15; TEMP 36.6; O2SAT 93
[2022-11-16] MEDS: atenoloL 100 MG TABLET PO (09:29)
[2022-11-16] MEDS: Furosemide 40 MG TABLET PO (09:29)
[2022-11-16] MEDS: Acetaminophen 325 MG TABLET 650 MG PO ×2 (09:29→20:15)
[2022-11-16] MEDS: OLANZapine 7.5 MG TABLET PO (09:29)
[2022-11-16] MEDS: amLODIPine Besylate 10 MG TABLET PO (09:29)
[2022-11-16] MEDS: Omeprazole 20 MG CAPSULE.DR PO (09:29)
[2022-11-16] MEDS: Celecoxib 200 MG CAPSULE PO ×2 (09:29→20:16)
--- NOTE | 2022-11-16 10:19 | PC.NURSE ---
patient alert, pleasantly confused. easily redirectable. cooperative and pleasant with staff.
--- NOTE | 2022-11-16 19:31 | PC.NURSE ---
assumed care of patient at 1900 - daughter at bedside. sitter in place. patient appears comfortable in no apparent distress. assisted to bedside commode. patient able to stand up and walks to and from commode with steady gait, short shuffles, 1 assist nearby. will continue to monitor
--- NOTE | 2022-11-16 20:50 | MHC.CM.ED ---
No word from [facility]. Update resent. JOSE ROBERTO met with Teodora Siu at her request. She made 2 phone calls to [facility] without response. Teodora tells CM she should complete MH application by tomorrow and will mail our priority mail. CM following for discharge planning for LTC.
[2022-11-17 01:01] VITALS: BP 139/64; PULSE 56; RESP 16; TEMP 36.4; O2SAT 96
[2022-11-17] MEDS: Sertraline HCL 100 MG TABLET PO (07:58)
[2022-11-17] MEDS: Furosemide 40 MG TABLET PO (07:58)
[2022-11-17] MEDS: Celecoxib 200 MG CAPSULE PO ×2 (07:58→20:41)
[2022-11-17] MEDS: OLANZapine 7.5 MG TABLET PO (07:58)
[2022-11-17] MEDS: amLODIPine Besylate 10 MG TABLET PO (07:58)
[2022-11-17] MEDS: Omeprazole 20 MG CAPSULE.DR PO (07:58)
[2022-11-17] MEDS: Acetaminophen 325 MG TABLET 650 MG PO ×2 (07:58→20:41)
[2022-11-17 08:15] VITALS: BP 140/60; PULSE 59; RESP 16; TEMP 36.6; O2SAT 96
[2022-11-17] MEDS: atenoloL 100 MG TABLET PO (09:10)
[2022-11-17] MEDS: Losartan Potassium 50 MG TABLET 100 MG PO (09:11)
[2022-11-17 21:59] VITALS: BP 134/57; PULSE 56; RESP 16; TEMP 37.2; O2SAT 96
--- NOTE | 2022-11-18 00:09 | MHC.EDTECH ---
Pt 1x assited with repositioning in bed. Pt given warm blankets/ Call ugaled placed in reach
[2022-11-18] MEDS: Omeprazole 20 MG CAPSULE.DR PO (05:46)
[2022-11-18 06:09] VITALS: BP 152/108; PULSE 70; RESP 16; TEMP 36.4; O2SAT 93
--- NOTE | 2022-11-18 06:12 | MHC.EDTECH ---
PT 1X assisted with repositioning in bed. Pt given warm blankets and call ugalde placed in reach
--- NOTE | 2022-11-18 06:26 | MHC.EDTECH ---
Pt trying to get out of bed. Pt 1x assisted to bedside commode 1x unmeasured void of urine. PT performed pericare on herself and 1x assisted back to bed. PT given warm blanket and call ugalde in reach
--- NOTE | 2022-11-18 06:46 | MHC.EDTECH ---
Pt assisted with oral hygiene and putting dentures in. Pt setup with breakfast
[2022-11-18] MEDS: Sertraline HCL 100 MG TABLET PO (08:13)
[2022-11-18] MEDS: Celecoxib 200 MG CAPSULE PO ×2 (08:14→20:37)
[2022-11-18] MEDS: amLODIPine Besylate 10 MG TABLET PO (08:14)
[2022-11-18] MEDS: Acetaminophen 325 MG TABLET 650 MG PO ×2 (08:14→20:37)
[2022-11-18] MEDS: Furosemide 40 MG TABLET PO (08:14)
[2022-11-18] MEDS: OLANZapine 7.5 MG TABLET PO (08:14)
--- NOTE | 2022-11-18 08:38 | MHC.CM.ED ---
Pt requires LTC and will need [facility] and a receiving facility: referrals have been made: no offers: Per review of notes, pt's dtr will complete the [facility] application and remit by 11/19/22. ED CM to follow.
[2022-11-18] MEDS: Losartan Potassium 50 MG TABLET 100 MG PO (09:59)
[2022-11-18] MEDS: atenoloL 100 MG TABLET PO (09:59)
[2022-11-18 15:30] VITALS: BP 102/52; PULSE 74; RESP 16; TEMP 36.6; O2SAT 98
--- NOTE | 2022-11-18 15:34 | MHC.EDTECH ---
this pct assumed care of pt at 1500 ,pt asked to used to commode ,patient was assisted unto commode ,had a large soft bowel movement and void ,sponge bath goven ,patient wanted to go back in bed ,i offer fluids ,patient said water is fine ,patient watching foot ball ,patient hair comb ,lotion apply and glasses clean ,call ugalde within reach .
--- NOTE | 2022-11-18 17:00 | MHC.EDTECH ---
patient ate a turkey and cheese sandwich that was brought in by family and had a glass of water.
--- NOTE | 2022-11-18 19:30 | MHC.EDTECH ---
PATIENT ATE 100 % OF TURKEY DINNER ,DRANK 360 ML JUICE AND MILK ,AFTER DINNER PATIENT WAS GIVEN A COMPLETE SPONGE BATH ,TOOTH BRUSHED ,BOTTOM DENTURE SOAK IN DENTURE CUP ,HAIR COMB ,LOTION APPLIED ,PT SAT ON BEDSIDE COMMODE VOIDED ,SOCK AND SILVIA CHANGE ,ALSO BEDDING CHANGE ,FRESH WATER GIVEN ,CALL DIAZ WITH IN REACH ,VITALS SIGN TAKEN .
[2022-11-18 20:00] VITALS: BP 148/75; PULSE 74; RESP 16; TEMP 36.5; O2SAT 97
--- NOTE | 2022-11-18 22:31 | MHC.EDTECH ---
PATIENT HAD SLEPT FOR AWHILE ,GOT UP BECAUSE SHE NEEDED TO VOID ,BUT DID NOT VOID ,I OFFER HER ICE CREAM SHE SITTING AT THE SIDE OF BED EATING .
[2022-11-19] MEDS: Sertraline HCL 100 MG TABLET PO (10:16)
[2022-11-19] MEDS: Furosemide 40 MG TABLET PO (10:16)
[2022-11-19] MEDS: Celecoxib 200 MG CAPSULE PO ×2 (10:17→20:08)
[2022-11-19] MEDS: Acetaminophen 325 MG TABLET 650 MG PO ×2 (10:17→20:08)
[2022-11-19] MEDS: OLANZapine 7.5 MG TABLET PO (10:17)
[2022-11-19] MEDS: amLODIPine Besylate 10 MG TABLET PO (10:17)
[2022-11-19] MEDS: Omeprazole 20 MG CAPSULE.DR PO (10:18)
[2022-11-19 10:38] VITALS: BP 153/74; PULSE 55; RESP 16; TEMP 36.7; O2SAT 99
[2022-11-19] MEDS: atenoloL 100 MG TABLET PO (10:59)
[2022-11-19] MEDS: Losartan Potassium 50 MG TABLET 100 MG PO (10:59)
--- NOTE | 2022-11-19 11:58 | PC.NURSE ---
pt on dayron camera system and with bed alarm on. bed in low position. resting comfortably, NAD. pt has been up twice to the commode with a steady gait and 1x assist. re-educated on use of call ugalde when needing to get up.
--- NOTE | 2022-11-19 13:24 | MHC.CM.ED ---
Patient remains in ER. [facility] is requesting an updated PT eval. Physical therapy has been asked to see patient. T/W attempted to contact Sona Lawson, adoption social worker at [facility] [place]. Left voicemail requesting return telephone call. Continue to monitor for d/c needs.
--- NOTE | 2022-11-19 13:51 | PC.NURSE ---
PT here to work with pt
[2022-11-19 15:53] VITALS: BP 153/74; PULSE 55; O2SAT 99
--- NOTE | 2022-11-19 18:38 | MHC.CM.ED ---
CM spoke with daughter, Teodora, today who tells CM that she completed the MH application and mailed it overnight delivery today 11/19. CM requested copy of MH application and financials to upload for the intermediate. [facility] and [facility]) following. CM continues to follow for discharge planning.
[2022-11-19 18:45] VITALS: BP 142/71; PULSE 55; RESP 16; TEMP 36.7; O2SAT 98
[2022-11-20 05:55] VITALS: BP 136/68; PULSE 58; RESP 14; TEMP 36.9; O2SAT 98
[2022-11-20 08:59] VITALS: BP 162/94; PULSE 57; TEMP 36.5; O2SAT 97
[2022-11-20] MEDS: Omeprazole 20 MG CAPSULE.DR PO (09:11)
[2022-11-20] MEDS: Acetaminophen 325 MG TABLET 650 MG PO ×2 (09:11→20:59)
[2022-11-20] MEDS: Celecoxib 200 MG CAPSULE PO ×2 (09:11→20:59)
[2022-11-20] MEDS: Furosemide 40 MG TABLET PO (09:11)
[2022-11-20] MEDS: amLODIPine Besylate 10 MG TABLET PO (09:11)
[2022-11-20] MEDS: OLANZapine 7.5 MG TABLET PO (09:12)
[2022-11-20] MEDS: Losartan Potassium 50 MG TABLET 100 MG PO (10:21)
[2022-11-20] MEDS: atenoloL 100 MG TABLET PO (10:21)
[2022-11-20] MEDS: Sertraline HCL 100 MG TABLET PO (10:22)
--- NOTE | 2022-11-20 14:15 | PC.NURSE ---
multiple family members at bedside throughout the day. pt is able to ambulate independently with steady gait. pt sometimes gets confused about situation but is easily redirectable. CM reports we are awaiting the daughter to complete [facility] forms so she can have STR placement.
--- NOTE | 2022-11-20 18:53 | PC.NURSE ---
pt ate 100% of dinner
[2022-11-20 19:04] VITALS: BP 123/58; PULSE 54; RESP 18; TEMP 36.2; O2SAT 98
--- NOTE | 2022-11-20 19:29 | PC.NURSE ---
Assumed care of pt. at 1900. Pt. asleep at this time. Respirations even and unlabored. No distress noted. Camera is at bedside. Will continue to monitor.
--- NOTE | 2022-11-20 19:40 | PC.NURSE ---
Pt. awake and requesting the commode. Assisted pt. to commode and pt. urinated. Assisted pt. back to bed. Pt. sitting up in bed watching tv at this time. No pain reported. Pt. alert and oriented to name and only.
--- NOTE | 2022-11-20 20:37 | PC.NURSE ---
Pt. requesting to use commode. Pt. assisted to commode and had a bm. Pt. cleaned up and assisted back into bed.
--- NOTE | 2022-11-20 22:52 | PC.NURSE ---
Pt. up and out of bed, asking how to get out of here. Pt. concerned her family won't know where to find her. Let pt. know her family knows where she is and will look for her here. Encouraged pt. to rest a bit. Pt. back in bed and allowed for VS to be completed. Will continue to monitor.
[2022-11-20 22:53] VITALS: BP 137/69; PULSE 51; RESP 16; TEMP 36.2; O2SAT 98
--- NOTE | 2022-11-21 00:47 | PC.NURSE ---
Pt. sleeping, respirations even and unlabored, no distress noted. Will continue to monitor.
--- NOTE | 2022-11-21 02:40 | PC.NURSE ---
Pt. sleeping upright in bed. Respirations even and unlabored. No distress noted. Will continue to monitor.
--- NOTE | 2022-11-21 05:30 | PC.NURSE ---
Pt. sleeping, respirations even and unlabored. No distress noted. Will continue to monitor.
[2022-11-21] MEDS: Omeprazole 20 MG CAPSULE.DR PO (06:29)
[2022-11-21 06:31] VITALS: BP 126/55; PULSE 73; RESP 16; TEMP 36.3; O2SAT 96
--- NOTE | 2022-11-21 06:40 | PC.NURSE ---
Woke pt. up for morning meds and vitals. Pt. back to sleep immediately after taking medications.
[2022-11-21 08:24] VITALS: BP 138/71
[2022-11-21] MEDS: atenoloL 100 MG TABLET PO (08:37)
[2022-11-21] MEDS: Acetaminophen 325 MG TABLET 650 MG PO ×2 (08:37→20:52)
[2022-11-21] MEDS: Celecoxib 200 MG CAPSULE PO ×2 (08:37→20:52)
[2022-11-21] MEDS: Sertraline HCL 100 MG TABLET PO (08:37)
[2022-11-21] MEDS: Losartan Potassium 50 MG TABLET 100 MG PO (08:37)
[2022-11-21] MEDS: amLODIPine Besylate 10 MG TABLET PO (08:37)
[2022-11-21] MEDS: OLANZapine 7.5 MG TABLET PO (08:37)
[2022-11-21] MEDS: Furosemide 40 MG TABLET PO (08:37)
--- NOTE | 2022-11-21 20:31 | PC.NURSE ---
Assumed care of pt. at 1900. Pt. in room at that time with daughter at bedside. Pt. ambulated with daughter to bathroom with cane. Gait is slow, but steady. Dtr. just left for the evening. Pt. is sitting in bed watching tv.
[2022-11-21 20:41] VITALS: BP 145/83; PULSE 57; RESP 19; TEMP 36.9; O2SAT 98
--- NOTE | 2022-11-21 22:41 | MHC.CM.ED ---
CM met with daughter, Teodora. Copies of MH application and financials that were submitted given to CM. Pt spoke with [employer] ([phone]) , who she has hired, who tell her that the home that is in a life estate, should not be problematic for the MH application, as Teodora is disabled. Reviewed with Teodora facilities that are following for bed placement. Teodora will be meeting with [employer] tomorrow. MH application and financials uploaded into [employer]. Request for facilities to review.
--- NOTE | 2022-11-21 23:57 | PC.NURSE ---
Pt. up and out of bed, ambulated with cane and 1 assist to the bathroom. Pt urinated small amount. Back to bed and provided water to pt. Oriented pt. to time and encouraged sleep. Pt. back up and out of bed. Ambulating with cane and 1 assist around unit and then back to bed. Pt. was confused that she'd be staying here and that her room was her room and her bed was her bed. Re-oriented to place. Pt. requests light to be left on in her room and pt. back in bed.
[2022-11-22 05:44] VITALS: BP 139/82; PULSE 55; RESP 18; TEMP 36.8; O2SAT 98
[2022-11-22] MEDS: Omeprazole 20 MG CAPSULE.DR PO (07:13)
--- NOTE | 2022-11-22 08:04 | PC.NURSE ---
assumed care of patient, pt resting comfortably in bed, VSS
[2022-11-22] MEDS: Losartan Potassium 50 MG TABLET 100 MG PO (08:44)
[2022-11-22] MEDS: Sertraline HCL 100 MG TABLET PO (08:44)
[2022-11-22] MEDS: Furosemide 40 MG TABLET PO (08:44)
[2022-11-22] MEDS: amLODIPine Besylate 10 MG TABLET PO (08:44)
[2022-11-22] MEDS: Celecoxib 200 MG CAPSULE PO ×2 (08:44→20:22)
[2022-11-22] MEDS: OLANZapine 7.5 MG TABLET PO (08:44)
[2022-11-22] MEDS: Acetaminophen 325 MG TABLET 650 MG PO ×2 (08:45→20:22)
[2022-11-22] MEDS: atenoloL 100 MG TABLET PO (08:45)
--- NOTE | 2022-11-22 13:08 | PC.NURSE ---
Patient resting on edge of bed no distress or agitation noted will CTM
--- NOTE | 2022-11-22 14:52 | MHC.EDTECH ---
Assist patient on/off cammode and with personal care. Lisette Horner
--- NOTE | 2022-11-22 14:54 | PC.NURSE ---
Per PCT patient refusing vital signs no distress noted resting comfortably will CTM
--- NOTE | 2022-11-22 15:36 | MHC.CM.ED ---
Patient remains in ER. Copy of [employer] application has been obtained. Uploaded to [facility] is requesting a copy of [employer]. Received telephone call from Yomi at [facility] [employer]. They help with [employer] applications. They do not feel there will be any issues with the [employer] application. Yomi is willing to help case management with this process. T/W asked Yomi for a copy of [employer]. Referral resent to [facility] at Yomi's request. Waiting to hear back. Continue to monitor for d/c needs.
--- NOTE | 2022-11-22 17:51 | PC.NURSE ---
Patient sleeping no distres noted easily aroused will CTM
--- NOTE | 2022-11-22 19:05 | MHC.EDTECH ---
patient ate 100 % of supper ,drank 480 ml fluids ,bed bath given ,patient laying down resting .
--- NOTE | 2022-11-22 20:01 | MHC.EDTECH ---
1999 rounding done ,pt got to to use bedside commode ,had an extra lg bowel movement and void ,teeth brush ,warm blanket given ,back in bed resting .
[2022-11-22 20:37] VITALS: BP 135/76; PULSE 73; RESP 16; TEMP 36.6; O2SAT 98
--- NOTE | 2022-11-22 22:34 | MHC.EDTECH ---
2200 ROUNDING DONE ,PT SLEEPING NO ISSUE .
[2022-11-23 04:48] VITALS: BP 143/67; PULSE 66; RESP 17; TEMP 36.4; O2SAT 96
--- NOTE | 2022-11-23 04:49 | MHC.EDTECH ---
pt vitals were taken she slept thru the night no issues
[2022-11-23] MEDS: Omeprazole 20 MG CAPSULE.DR PO (05:28)
[2022-11-23 09:00] VITALS: BP 145/76; PULSE 54; RESP 17; TEMP 36.2; O2SAT 96
[2022-11-23] MEDS: Furosemide 40 MG TABLET PO (09:08)
[2022-11-23] MEDS: OLANZapine 7.5 MG TABLET PO (09:09)
[2022-11-23] MEDS: Sertraline HCL 100 MG TABLET PO (09:09)
[2022-11-23] MEDS: Losartan Potassium 50 MG TABLET 100 MG PO (09:09)
[2022-11-23] MEDS: amLODIPine Besylate 10 MG TABLET PO (09:09)
[2022-11-23] MEDS: Acetaminophen 325 MG TABLET 650 MG PO ×2 (09:09→21:53)
[2022-11-23] MEDS: Celecoxib 200 MG CAPSULE PO ×2 (09:09→21:53)
--- NOTE | 2022-11-23 11:11 | PC.NURSE ---
pt alert, confused. baseline confusion with HX dementia. assisted to the bedside commode. call ugalde within reach.
[2022-11-23 14:00] VITALS: BP 127/71; PULSE 73; RESP 18; TEMP 36.3; O2SAT 97
--- NOTE | 2022-11-23 19:59 | MHC.EDTECH ---
Gave patient a denture cup and cap to soak dentures.
--- NOTE | 2022-11-23 21:41 | MHC.EDTECH ---
Assist patient off the commode and wiped patient clean (void). Patient in bed. Emptied commode and put a commode bag for next use.
--- NOTE | 2022-11-23 21:55 | PC.NURSE ---
Pt Alert to person, calm and cooperative. PT medicated per MAR.
[2022-11-24 06:27] VITALS: BP 148/85; PULSE 74; RESP 12; TEMP 36.6; O2SAT 97
[2022-11-24] MEDS: Omeprazole 20 MG CAPSULE.DR PO (06:51)
[2022-11-24 09:01] VITALS: BP 136/78; PULSE 66; RESP 14; TEMP 36.4; O2SAT 100
[2022-11-24] MEDS: Sertraline HCL 100 MG TABLET PO (09:34)
[2022-11-24] MEDS: amLODIPine Besylate 10 MG TABLET PO (09:34)
[2022-11-24] MEDS: Celecoxib 200 MG CAPSULE PO ×2 (09:34→20:40)
[2022-11-24] MEDS: Furosemide 40 MG TABLET PO (09:34)
[2022-11-24] MEDS: OLANZapine 7.5 MG TABLET PO (09:34)
[2022-11-24] MEDS: atenoloL 100 MG TABLET PO (09:34)
[2022-11-24] MEDS: Acetaminophen 325 MG TABLET 650 MG PO ×2 (09:35→20:40)
[2022-11-24] MEDS: Losartan Potassium 50 MG TABLET 100 MG PO (09:35)
--- NOTE | 2022-11-24 14:05 | MHC.CM.ED ---
Patient remains in ER overflow. Clinical updates sent to [facility] via [facility]. Still need a copy of trust. T/W will attempt to call [facility] [employer] during business hours. Continue to monitor for d/c needs.
--- NOTE | 2022-11-24 16:00 | MHC.EDTECH ---
this pct assumed care of pt at 1500 ,pt got to use bedside commode ,pt had lg amount of loose bowel movement ,and void bed bath given ,back to bed .
--- NOTE | 2022-11-24 16:19 | MHC.EDTECH ---
p got up to use bedside commode ,but did not do anything .
--- NOTE | 2022-11-24 19:32 | MHC.EDTECH ---
pt ate 100 % of dinner ,drank 360 ml coke ,daughter was here but just left ,pt now taking a nap .
--- NOTE | 2022-11-24 19:47 | MHC.EDTECH ---
pt just got up to use bedside commode ,void lg amount of urine ,care given .
[2022-11-24 20:00] VITALS: BP 108/55; PULSE 63; RESP 16; TEMP 36.9; O2SAT 95
--- NOTE | 2022-11-24 20:00 | MHC.EDTECH ---
2000 rounding and vitals sign taken ,pt taking a nap .
[2022-11-24] MEDS: Loperamide HCl 2 MG CAPSULE PO (20:40)
--- NOTE | 2022-11-24 20:42 | PC.NURSE ---
Addendum entered by Aleisha Jenkins RN 11/25/22 06:54: Report given to KEENAN Gallagher Original Note: report received from KEENAN Argueta pt alert and oriented x2 resting in bed no signs of acute distress notice close monitoring maintained breathing equally unla
--- NOTE | 2022-11-24 21:47 | MHC.EDTECH ---
2200 rounding done ,pt up to commode ,void ,had ice cream for snack .
--- NOTE | 2022-11-25 | MHC.EDTECH ---
0000 rounding done ,pt sleeping .
[2022-11-25 06:11] VITALS: BP 157/86; PULSE 68; RESP 16; TEMP 36.2; O2SAT 98
[2022-11-25] MEDS: Omeprazole 20 MG CAPSULE.DR PO (06:20)
--- NOTE | 2022-11-25 07:37 | PC.NURSE ---
meal tray provided
[2022-11-25] MEDS: amLODIPine Besylate 10 MG TABLET PO (08:51)
[2022-11-25] MEDS: Losartan Potassium 50 MG TABLET 100 MG PO (08:51)
[2022-11-25] MEDS: Celecoxib 200 MG CAPSULE PO ×2 (08:51→20:53)
[2022-11-25] MEDS: Sertraline HCL 100 MG TABLET PO (08:51)
[2022-11-25] MEDS: OLANZapine 7.5 MG TABLET PO (08:52)
[2022-11-25] MEDS: Furosemide 40 MG TABLET PO (08:52)
[2022-11-25] MEDS: Acetaminophen 325 MG TABLET 650 MG PO ×2 (08:52→20:53)
[2022-11-25] MEDS: Loperamide HCl 2 MG CAPSULE PO ×2 (08:52→16:00)
[2022-11-25] MEDS: atenoloL 100 MG TABLET PO (09:12)
--- NOTE | 2022-11-25 10:35 | PC.NURSE ---
Pt up to bedside commode, washed up and linen changed.
[2022-11-25 10:57] VITALS: BP 133/67; PULSE 56; RESP 16; TEMP 36.4; O2SAT 95
--- NOTE | 2022-11-25 13:50 | PC.NURSE ---
Pt provided with lunch
[2022-11-25 15:08] VITALS: BP 125/55; PULSE 50; RESP 16; O2SAT 98
--- NOTE | 2022-11-25 16:00 | PC.NURSE ---
Pt had episode of diarrhea, PRN medication given
--- NOTE | 2022-11-25 17:34 | PC.NURSE ---
Pts daughter bedside for visit
--- NOTE | 2022-11-25 18:35 | PC.NURSE ---
Pt ambulated with walker and one assist to restroom with slow steady gait
--- NOTE | 2022-11-25 19:28 | PC.NURSE ---
report received from Kaykay HUSSEIN - assumed care of patient at 1900. patient sitting up eating dinner. daughter at bedside. no apparent distress. will continue to monitor.
[2022-11-25 20:53] VITALS: BP 140/71; PULSE 64; RESP 16; TEMP 36.7; O2SAT 98
[2022-11-26 06:23] VITALS: BP 144/80; PULSE 66; RESP 12; TEMP 35.7; O2SAT 97
[2022-11-26] MEDS: Omeprazole 20 MG CAPSULE.DR PO (06:25)
--- NOTE | 2022-11-26 06:27 | PC.NURSE ---
patient comfortable on stretcher, has no current complaints. is in no apparent distress. morning mediation given. no issues throughout the night, will continue to monitor
[2022-11-26 09:30] VITALS: BP 126/53; PULSE 53; RESP 18; TEMP 36.3; O2SAT 97
--- NOTE | 2022-11-26 09:31 | MHC.EDTECH ---
Patient assisted to bedside commode voided large amt of urine. Back to bed,breakfast given. Vital signs taken documented and reported to RN .
[2022-11-26] MEDS: amLODIPine Besylate 10 MG TABLET PO (09:58)
[2022-11-26] MEDS: Furosemide 40 MG TABLET PO (09:58)
[2022-11-26] MEDS: Sertraline HCL 100 MG TABLET PO (09:58)
[2022-11-26] MEDS: Celecoxib 200 MG CAPSULE PO ×2 (09:58→21:11)
[2022-11-26] MEDS: Acetaminophen 325 MG TABLET 650 MG PO ×2 (09:58→21:11)
[2022-11-26] MEDS: OLANZapine 7.5 MG TABLET PO (09:58)
[2022-11-26] MEDS: Losartan Potassium 50 MG TABLET 100 MG PO (09:59)
--- NOTE | 2022-11-26 10:37 | PC.NURSE ---
ASSUMED CARE OF PT AT 0700. PT SLEEPING AT TIME OF ASSUMING CARE. SHE DENIES PAIN, VSS. PT ASSISTED TO BEDSIDE COMMODE, ATE 75% OF BREAKFAST. MEDS GIVEN DOCUMENTED. PT'S SON IS AT HER BEDSIDE. NO COMPLAINTS.
--- NOTE | 2022-11-26 10:44 | MHC.EDTECH ---
Emptied patients cammode.
[2022-11-26] MEDS: atenoloL 100 MG TABLET PO (10:46)
[2022-11-26 10:51] VITALS: BP 129/66; PULSE 72; O2SAT 98
[2022-11-26 15:13] VITALS: BP 127/70; PULSE 55; RESP 16; TEMP 36.3; O2SAT 96
--- NOTE | 2022-11-26 17:00 | MHC.EDTECH ---
Assisted patient to cammode and with personal Hygiene. Changed patients lineedson Horner
[2022-11-26 20:17] VITALS: BP 125/62; PULSE 94; RESP 17; TEMP 36.2; O2SAT 98
--- NOTE | 2022-11-26 20:47 | MHC.CM.ED ---
CM returned T/C from Teodora Siu. Explained that MH pending/approval not yet on Medicaid site. No news with facilities. Explained that once MH is accepted, CM can re-refer to facilities. Teodora is upset with [employer] [employer], as they were supposed to get back to her with updates either Saturday or Saturday. She has not received any updates. She will call them tomorrow and update CM.Teodora tell CM that she received confirmation that received her application on Monday 11/20. continues to follow for discharge planning.
[2022-11-26 22:50] VITALS: BP 122/70; PULSE 57; RESP 17; TEMP 36.6; O2SAT 95
[2022-11-27 06:18] VITALS: BP 135/79; PULSE 53; RESP 17; TEMP 36.6; O2SAT 97
[2022-11-27] MEDS: Omeprazole 20 MG CAPSULE.DR PO (06:40)
[2022-11-27 07:45] VITALS: BP 151/66; PULSE 71; RESP 16; TEMP 36.2; O2SAT 95
--- NOTE | 2022-11-27 09:14 | MHC.CM.ED ---
Addendum entered by Simran Foster 11/27/22 16:10: Received voicemail from Genny at [facility]. Attempted to reach Genny via telephone at [phone] twice. Left 2 messages requesting return telephone call. Addendum entered by Simran Foster 11/27/22 15:18: Received telephone call from Yomi. Patient doesn't have a land trust. It's a deed with patient having life-time residency. Yomi will fax that to T/W. Original Note: Patient remains in ER overflow. Still trying to find a copy of [employer]. T/W left a message for Yomi at [facility] via telephone at [phone] requesting copy of trust and return telephone call. Also relayed this was 2nd message left by T/W. Continue to monitor for d/c needs.
[2022-11-27] MEDS: amLODIPine Besylate 10 MG TABLET PO (10:02)
[2022-11-27] MEDS: Losartan Potassium 50 MG TABLET 100 MG PO (10:02)
[2022-11-27] MEDS: Furosemide 40 MG TABLET PO (10:03)
[2022-11-27] MEDS: Celecoxib 200 MG CAPSULE PO ×2 (10:03→20:44)
[2022-11-27] MEDS: Sertraline HCL 100 MG TABLET PO (10:04)
[2022-11-27] MEDS: OLANZapine 7.5 MG TABLET PO (10:04)
[2022-11-27] MEDS: atenoloL 100 MG TABLET PO (13:14)
--- NOTE | 2022-11-27 19:04 | PC.NURSE ---
Addendum entered by Aleisha Jenkins RN 11/27/22 20:48: pt alert and oriented x2 resting in bed no signs of acute distress notice close monitoring maintained breathing equally unlabored Original Note: Report received from KEENAN Arciniega
[2022-11-27] MEDS: Acetaminophen 325 MG TABLET 650 MG PO (20:44)
[2022-11-27] MEDS: Loperamide HCl 2 MG CAPSULE PO (20:44)
[2022-11-28 05:37] VITALS: BP 110/68; PULSE 59; RESP 16; TEMP 36.6; O2SAT 95
[2022-11-28] MEDS: Omeprazole 20 MG CAPSULE.DR PO (05:40)
[2022-11-28] MEDS: amLODIPine Besylate 10 MG TABLET PO (08:01)
[2022-11-28] MEDS: Sertraline HCL 100 MG TABLET PO (08:01)
[2022-11-28] MEDS: Acetaminophen 325 MG TABLET 650 MG PO ×2 (08:01→20:14)
[2022-11-28] MEDS: atenoloL 100 MG TABLET PO (08:01)
[2022-11-28] MEDS: Losartan Potassium 50 MG TABLET 100 MG PO (08:01)
[2022-11-28] MEDS: Celecoxib 200 MG CAPSULE PO ×2 (08:02→20:14)
[2022-11-28] MEDS: Furosemide 40 MG TABLET PO (08:02)
[2022-11-28] MEDS: OLANZapine 7.5 MG TABLET PO (08:02)
--- NOTE | 2022-11-28 09:03 | PC.NURSE ---
Patient resting comfortably no agitation noted is easily redirected no distress is confused at [facility] will CTM
--- NOTE | 2022-11-28 09:48 | PC.NURSE ---
Patient up to commode with assistance will CTM
[2022-11-28 10:01] VITALS: BP 156/80; PULSE 56; RESP 16; TEMP 36.4; O2SAT 98
--- NOTE | 2022-11-28 11:16 | MHC.CM.ED ---
Patient remains in ER overflow. Copy of house deed obtained from [employer] [employer]. Send to [facility]. T/W spoke with Stephanie at [facility] They have a 1 year waiting list for [facility] beds. Continue to monitor for d/c needs.
--- NOTE | 2022-11-28 12:38 | PC.NURSE ---
Patient up to commode with assist
--- NOTE | 2022-11-28 12:46 | PC.NURSE ---
Per tech patient continent of stool will CTM
--- NOTE | 2022-11-28 16:16 | MHC.CM.ED ---
Spoke to Holley from [facility]. [employer] states the patient can't sell her house for $1 and the sale of the house was only 3 years ago, not 5 years ago. They do not feel patient will qualify for Down because of this. T/W attempted to reach Yomi [facility]ne [facility] [employer] to discuss this new information. Left a message requesting return telephone call to discuss this. Continue to monitor for d/c needs.
--- NOTE | 2022-11-28 20:52 | MHC.CM.ED ---
CM met with daughter, Teodora and shared new information regarding MH application. Aware that any changes with home must be at least 5 years, not 3 years. Teodora states she has been told that because she is disabled, that 5 years should not apply. She tells CM she was told that by 2 boat builder and repairer's and by Yomi from the [facility] group. Teodora will contact [facility] joann to gain clarification on this manner. Teodora aware that if MH application is denied, there will be no payor for LTC. JOSE ROBERTO will continue to follow for discharge planning.
[2022-11-28 21:19] VITALS: BP 149/64; PULSE 64; RESP 18; TEMP 36.6; O2SAT 98
[2022-11-29] MEDS: Omeprazole 20 MG CAPSULE.DR PO (06:27)
[2022-11-29 06:40] VITALS: BP 176/95; PULSE 63; RESP 17; TEMP 36.9; O2SAT 97
[2022-11-29] MEDS: atenoloL 100 MG TABLET PO (09:11)
[2022-11-29] MEDS: Acetaminophen 325 MG TABLET 650 MG PO ×2 (09:11→20:16)
[2022-11-29] MEDS: Losartan Potassium 50 MG TABLET 100 MG PO (09:11)
[2022-11-29] MEDS: Sertraline HCL 100 MG TABLET PO (09:11)
[2022-11-29] MEDS: OLANZapine 7.5 MG TABLET PO (09:11)
[2022-11-29] MEDS: Celecoxib 200 MG CAPSULE PO ×2 (09:12→20:16)
[2022-11-29] MEDS: Furosemide 40 MG TABLET PO (09:12)
[2022-11-29] MEDS: amLODIPine Besylate 10 MG TABLET PO (09:12)
[2022-11-29 09:15] VITALS: BP 153/93; PULSE 63; RESP 18; O2SAT 97
--- NOTE | 2022-11-29 11:15 | PC.NURSE ---
patient restless, verbally redirectable. up to bedside recliner, watching tv.
--- NOTE | 2022-11-29 14:08 | MHC.CM.ED ---
Patient remains in ER overflow. Received return telephone call from Yomi at [facility] [employer]. Yomi states [facility] is incorrect. Because Teodora is disabled, [employer] can sell the house to Teodora for $1 and it will not be an issue that it is only 3 years and not 5 years. Yomi requesting T/W ask [facility] to contact him about this. T/W messaged [facility] via [employer] and requested they call Yomi. Received telephone call from Genny at [facility] [employer] [facility]. Genny stated the same info about the deed for the house. Genny stated patient will not be active on the [employer] virtual gateway until her application is actually approved. 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 However, Teodora sent the application to [employer] herself. Teodora didn't include the correct signature pages. Genny asked Teodora to keep an eye on the mail for that information. Received telephone call from Teodora. Teodora still feels [facility] is too far. Asking if [facility] will be able to accept patient. T/W explained [facility] would be not able to offer a bed until [employer] is active. Also explained 4 usp facilities in the area will be closing, leaving less beds available in the area. Teodora verbalized understand. Teodora received [employer] envelop today and will contact Genny at the [facility]. Continue to monitor for d/c needs.
[2022-11-29 14:50] VITALS: BP 120/66; PULSE 54; RESP 16; TEMP 36.8; O2SAT 99
[2022-11-29 20:17] VITALS: BP 138/76; PULSE 60; RESP 18; O2SAT 98
[2022-11-30 05:41] VITALS: BP 158/75; PULSE 62; RESP 12; O2SAT 98
[2022-11-30] MEDS: Omeprazole 20 MG CAPSULE.DR PO (05:46)
[2022-11-30] MEDS: Acetaminophen 325 MG TABLET 650 MG PO ×2 (08:12→21:58)
[2022-11-30] MEDS: Celecoxib 200 MG CAPSULE PO ×2 (08:12→21:58)
[2022-11-30] MEDS: Losartan Potassium 50 MG TABLET 100 MG PO (08:12)
[2022-11-30] MEDS: Sertraline HCL 100 MG TABLET PO (08:12)
[2022-11-30] MEDS: amLODIPine Besylate 10 MG TABLET PO (08:12)
[2022-11-30] MEDS: Furosemide 40 MG TABLET PO (08:12)
[2022-11-30] MEDS: OLANZapine 7.5 MG TABLET PO (08:12)
[2022-11-30] MEDS: atenoloL 100 MG TABLET PO (09:55)
[2022-11-30 14:00] VITALS: BP 135/89; PULSE 67; RESP 14; TEMP 36.3; O2SAT 97
[2022-11-30 22:36] VITALS: BP 142/74; PULSE 77; O2SAT 98
[2022-12-01] VITALS (9 sets, daily range): BP systolic 102–155; BP diastolic 54–82; PULSE 68–79; RESP 16–21; TEMP 36.4–36.6; O2SAT 95–99
[2022-12-01] MEDS: Omeprazole 20 MG CAPSULE.DR PO (06:00)
[2022-12-01] MEDS: amLODIPine Besylate 10 MG TABLET PO (10:48)
[2022-12-01] MEDS: Losartan Potassium 50 MG TABLET 100 MG PO (10:48)
[2022-12-01] MEDS: Celecoxib 200 MG CAPSULE PO ×2 (10:48→20:43)
[2022-12-01] MEDS: Furosemide 40 MG TABLET PO (10:48)
[2022-12-01] MEDS: atenoloL 100 MG TABLET PO (10:49)
[2022-12-01] MEDS: Sertraline HCL 100 MG TABLET PO (10:49)
[2022-12-01] MEDS: OLANZapine 7.5 MG TABLET PO (10:49)
--- NOTE | 2022-12-01 12:40 | MHC.EDTECH ---
Assisted patient from bed to cammode. performed ADL s, Changed bedding and gown. Assisted patient with getting into recliner. Lisette Horner
[2022-12-01 19:34] LABS: MANUAL DIFF FLAG NO
[2022-12-01 19:35] LABS: Basophils Percent Auto 0.3 % (0-2); Eosinophils Absolute Auto 0.2 X10*3/uL (0.0-0.4); Eosinophils Percent Auto 2.5 % (0-4); Hematocrit 43.9 % (37.0-47.0); Hemoglobin 14.3 g/dl (12.0-16.0); Imm Gran Abs Auto 0.01 X10*3/uL (0.00-0.03); Imm Gran Pct Auto 0.1 % (0.0-0.4); Lymphocytes Absolute Auto 2.8 X10*3/uL (1.2-4.9); Lymphocytes Percent Auto 36.2 % (20-40); Mean Corpuscular HGB Conc 32.6 g/dl (31.0-35.0); Mean Corpuscular Hemoglobin 30.6 pg (27.0-33.0); Mean Platelet Volume 8.7 fL (9.4-12.3); Monocytes Absolute Auto 0.5 X10*3/uL (0.1-1.2); Monocytes Percent Auto 6.6 % (2-11); Neutrophils Absolute Auto 4.2 x10*3/uL (2.0-8.3); Neutrophils Percent Auto 54.3 % (45-73); Platelet Count 229 X10*3/uL (160-400); Red Blood Count 4.67 X10*6/uL (4.20-5.50); Red Cell Distribution Width 14.2 % (11.0-16.0); White Blood Count 7.7 X10*3/uL (4.8-10.8)
[2022-12-01] MEDS: 0.9 % Sodium Chloride 1,000 ML 999 ML IV ×2 (19:38→20:39)
--- NOTE | 2022-12-01 19:40 | ECG_ITS ---
Test Reason : VOMITING Blood Pressure : / mmHG Vent. Rate : 064 BPM Atrial Rate : 000 BPM P-R Int : 000 ms QRS Dur : 132 ms QT Int : 424 ms P-R-T Axes : 000 -52 040 degrees QTc Int : 437 ms Atrial fibrillation Left axis deviation Left bundle branch block Abnormal ECG When compared with ECG of 12-NOV-2022 10:38, Left bundle branch block is now Present Criteria for Anteroseptal infarct are no longer Present Referred By: Miko Castillo Electronically Signed By:LEONA MCDONALD MD
--- NOTE | 2022-12-01 19:40 | PC.NURSE ---
Nurse took over shift: Pt was lethargic, obtunded, pale and vomiting light brown about 300. Pt was inserted IV LAC 20g by the RN. Pt's DTR is at bedside. Pt labs has been drawn, this nurse administered IV push zofran 4mg. IVF has running as order. pt started to feel better. Provider has been notified.
[2022-12-01 19:53] LABS: Lactic Acid 2.6 mmol/L (0.5-2.0)
[2022-12-01 19:59] LABS: Alanine Aminotransferase 12 U/L (0-31); Albumin Level 4.1 g/dL (3.5-5.0); Alkaline Phosphatase 121 U/L (39-117); Anion Gap 16 (12-20); Aspartate Amino Transferase 24 U/L (5-31); Bilirubin Total 0.5 mg/dL (0.0-1.0); Blood Urea Nitrogen 37 mg/dL (9-16); Calcium 10.1 mg/dL (8.4-10.2); Carbon Dioxide 24 mmol/L (22-29); Chloride 104 mmol/L (96-108); Creatinine Clr Calc Pharmacy 30.4; Estimated Glomerular Filt Rate 42; Glucose Random 109 mg/dL (60-115); Potassium 4.2 mmol/L (3.3-5.1); Sodium 140 mmol/L (135-145); Total Protein 7.1 g/dL (6.5-8.0)
--- NOTE | 2022-12-01 20:05 | PC.NURSE ---
Per PA, plan for admission. This contacting nursing supervisor rubber covering. Per nursing kavin Nelson, pt can remain in OF as a pending admission.
--- NOTE | 2022-12-01 20:26 | PC.NURSE ---
Sepsis protocol began at 1999 1938- Labs were drawn, BP was obtained, EKG was taken and sign by the provider, IVF running and POC. 1999- Straight cath and urine analysis was obtained. 2027- Xray
[2022-12-01 20:40] LABS: Glucose, Whole Blood 101 mg/dL (60-115)
[2022-12-01] MEDS: cefTRIAXone sodium 1 GM in 0.9 % Sodium Chloride 50 ML IV (20:42)
[2022-12-01] MEDS: Acetaminophen 325 MG TABLET 650 MG PO (20:43)
[2022-12-01 20:50] LABS: Appearance Urine Clear; Color Urine Yellow; Glucose Urine UA Negative (Negative); Leukocyte Esterase Urine Negative (Negative); Nitrite Urine Negative (Negative); PH 5.5 (5.0-9.0); Urine Blood Negative (Negative); Urine Ketones Negative (Negative); Urine Protein Negative (Neg-Trace)
[2022-12-01 20:53] LABS: INTERNATIONAL NORM RATIO 1.1 (0.9-1.1); Prothrombin Time 12.2 SEC (10.0-13.1)
[2022-12-01 20:56] LABS: Partial Thromboplastin Time 25.8 SEC (26.0-36.4)
[2022-12-01 21:01] LABS: Troponin-I High Sensitivity 5.1 ng/L (<3.5-17.0)
[2022-12-01 21:20] LABS: Influenza A PCR NEGATIVE (Negative); Influenza B PCR NEGATIVE (Negative); Resp Syncy Virus RNA Qual PCR NEGATIVE (Negative); SARS COV2 PCR INHOUSE NEGATIVE (Negative)
[2022-12-01 21:32] LABS: Reflex Lactate? Lactic Acid Added
--- NOTE | 2022-12-01 22:21 | PC.NURSE ---
2129- Pt removed her IV and BP cuff 0- Pt is angry and combative. Mavin call [facility] for assistance. Pt is on the continuos monitor and it shows chronic a-fib.
[2022-12-01 22:36] LABS: ~Lactic Acid-LAB USE ONLY 2.2 mmol/L (0.5-2.0)
[2022-12-02] VITALS: BP 142/86; PULSE 70; RESP 16; TEMP 36.6; O2SAT 97
--- NOTE | 2022-12-02 | MHC.EDTECH ---
0000 rounding and vitals sign done ,repeated lactic acid drawn and sent to lab .
[2022-12-02 00:17] LABS: Reflex Lactate? 2 Y
--- NOTE | 2022-12-02 00:31 | PC.NURSE ---
Pt's had 2 Iv inserted and she took them off. Pt was agitated and combative. Pt third lactic acid was drawn and it was normal. pt is asleep.
[2022-12-02 02:00] VITALS: BP 150/57; PULSE 69; RESP 16; TEMP 36.6; O2SAT 98
--- NOTE | 2022-12-02 02:22 | MHC.EDTECH ---
0200 rounding done pt sleeping vitals sign taken ,and pt dry .
[2022-12-02 03:57] VITALS: BP 138/79; PULSE 73; RESP 16; TEMP 36.1; O2SAT 97
[2022-12-02 06:00] VITALS: BP 174/84; PULSE 81; RESP 16; TEMP 36.7; O2SAT 98
--- NOTE | 2022-12-02 06:00 | MHC.EDTECH ---
0600 rounding done ,pt vitals sign taken ,pt did not void all night , pt said she does not need to void .
[2022-12-02] MEDS: Omeprazole 20 MG CAPSULE.DR PO (06:18)
--- NOTE | 2022-12-02 06:33 | PC.NURSE ---
6:33a- This nurse provided a pitch of water to pt to keep him hydrated.
--- NOTE | 2022-12-02 07:24 | PC.NURSE ---
Assumed care of pt. Meal tray provided. Pt asleep resting comfortably.
[2022-12-02] MEDS: Acetaminophen 325 MG TABLET 650 MG PO ×2 (09:39→20:10)
[2022-12-02] MEDS: Celecoxib 200 MG CAPSULE PO ×2 (09:39→20:10)
[2022-12-02] MEDS: atenoloL 100 MG TABLET PO (09:39)
[2022-12-02] MEDS: OLANZapine 7.5 MG TABLET PO (09:39)
[2022-12-02] MEDS: amLODIPine Besylate 10 MG TABLET PO (09:39)
[2022-12-02] MEDS: Sertraline HCL 100 MG TABLET PO (09:40)
[2022-12-02] MEDS: Losartan Potassium 50 MG TABLET 100 MG PO (09:40)
[2022-12-02] MEDS: Furosemide 40 MG TABLET PO (09:40)
[2022-12-02 15:17] VITALS: BP 115/61; PULSE 62; RESP 16; TEMP 36.6; O2SAT 97
--- NOTE | 2022-12-02 19:32 | PC.NURSE ---
I took over care of the pt at 1900. Pt's daughter is at the bedside. Pt was assisted to the commode to void and was situated back in bed comfortably. No complaints or new orders at this time.
--- NOTE | 2022-12-02 19:37 | MHC.EDTECH ---
Assist patient onto commode. Patient able to get off commode and unto bed independently.
[2022-12-02 23:58] VITALS: BP 116/48; PULSE 50; RESP 16; TEMP 36.5; O2SAT 95
[2022-12-03 06:00] VITALS: BP 136/94; PULSE 56; RESP 19; TEMP 36.4; O2SAT 95
--- NOTE | 2022-12-03 06:29 | MHC.EDTECH ---
PT given pericare. Pt bed pads changed. Pt given warm blanket and call ugalde in reach.
--- NOTE | 2022-12-03 07:00 | PC.NURSE ---
Assumed care of patient at this time.
[2022-12-03] MEDS: OLANZapine 7.5 MG TABLET PO (07:56)
[2022-12-03] MEDS: Sertraline HCL 100 MG TABLET PO (07:56)
[2022-12-03] MEDS: atenoloL 100 MG TABLET PO (07:56)
[2022-12-03] MEDS: Celecoxib 200 MG CAPSULE PO ×2 (07:56→20:50)
[2022-12-03] MEDS: Losartan Potassium 50 MG TABLET 100 MG PO (07:56)
[2022-12-03] MEDS: Furosemide 40 MG TABLET PO (07:56)
[2022-12-03] MEDS: amLODIPine Besylate 10 MG TABLET PO (07:57)
[2022-12-03] MEDS: Acetaminophen 325 MG TABLET 650 MG PO (07:57)
[2022-12-03 12:38] VITALS: RESP 17
--- NOTE | 2022-12-03 13:43 | MHC.CM.ED ---
Patient remains in ER overflow. No bed offers made yet. Not active with [employer] yet. Continue to monitor for d/c needs.
--- NOTE | 2022-12-03 17:46 | PC.NURSE ---
PT USED BEDSIDE COMMODE, PASSED SEMI SOLID BM. REQUIRES STAFF ASSISTANCE. PT DENIES PAIN, IN NAD AT THIS TIME.
[2022-12-03 18:53] VITALS: BP 131/70; PULSE 82; RESP 16; TEMP 36.9; O2SAT 95
[2022-12-03 21:11] VITALS: BP 143/70; PULSE 69; RESP 18; TEMP 36.2; O2SAT 94
--- NOTE | 2022-12-03 21:14 | MHC.CM.ED ---
CM spoke with daughter, Teodora today. She tells CM that has requested additional forms/verifications, which she has provided. Teodora states that [facility] is working directly with on her behalf. Teodora does not expect MH to be denied. Teodora will keep CM informed regarding MH progress. CM following for discharge planning. Will need MH prior to facilities offering beds.
--- NOTE | 2022-12-03 21:28 | MHC.EDTECH ---
assisted pt to the commode and back to bed
--- NOTE | 2022-12-04 00:14 | PC.NURSE ---
assumed care of patient at 2300 - patient sleeping comfortably on stretcher in no apparent distress. will CTM
[2022-12-04 01:48] VITALS: BP 133/76; PULSE 77; RESP 18; TEMP 36.6; O2SAT 96
--- NOTE | 2022-12-04 01:49 | MHC.EDTECH ---
pt got up to use the commode, and back to bed
[2022-12-04] MEDS: Acetaminophen 325 MG TABLET 650 MG PO ×2 (03:26→21:44)
[2022-12-04 06:03] VITALS: BP 121/77; PULSE 82; RESP 18; TEMP 36.4; O2SAT 96
[2022-12-04] MEDS: Omeprazole 20 MG CAPSULE.DR PO (06:50)
[2022-12-04 07:43] LABS: Glucose, Whole Blood 104 mg/dL (60-115)
[2022-12-04] MEDS: amLODIPine Besylate 10 MG TABLET PO (10:01)
[2022-12-04] MEDS: Losartan Potassium 50 MG TABLET 100 MG PO (10:01)
[2022-12-04] MEDS: OLANZapine 7.5 MG TABLET PO (10:02)
[2022-12-04] MEDS: Celecoxib 200 MG CAPSULE PO ×2 (10:03→21:44)
[2022-12-04] MEDS: Furosemide 40 MG TABLET PO (10:03)
[2022-12-04] MEDS: Sertraline HCL 100 MG TABLET PO (10:03)
[2022-12-04] MEDS: atenoloL 100 MG TABLET PO (10:03)
--- NOTE | 2022-12-04 11:42 | PC.NURSE ---
assumed care of pt at 1100, pt sleeping, RR even and unlabored.
--- NOTE | 2022-12-04 12:37 | PC.NURSE ---
pt assisted to bedside commode, large semi-formed bm. pt cleaned and repositioned back into bed.
--- NOTE | 2022-12-04 13:47 | PC.NURSE ---
pt assisted with cutting up food, pt sitting up in bed eating.
[2022-12-04 14:33] VITALS: BP 141/66; PULSE 55; RESP 14; TEMP 36.3; O2SAT 97
--- NOTE | 2022-12-04 14:38 | PC.NURSE ---
pt ate 75% of lunch tray, resting quietly in bed.
--- NOTE | 2022-12-04 18:52 | PC.NURSE ---
pt ate 100% of dinner, assisted onto commode and then back into bed, daughter at bedside.
--- NOTE | 2022-12-04 21:45 | PC.NURSE ---
Pt's BP is slightly elevated, Pt is on the bed with bedalarm on due to pt is high risk for fall secondary to recently fall and advanced dementia. Pt meds were given as order by the provider.
[2022-12-04 22:20] VITALS: BP 157/76; PULSE 65; RESP 18; O2SAT 97
--- NOTE | 2022-12-04 22:21 | MHC.EDTECH ---
pt was repositioned and given water to drink. pt is now resting and drinking water.
[2022-12-05 06:19] VITALS: BP 151/79; PULSE 81; RESP 18; TEMP 36.3; O2SAT 97
[2022-12-05] MEDS: Omeprazole 20 MG CAPSULE.DR PO (06:19)
--- NOTE | 2022-12-05 06:22 | PC.NURSE ---
Pt's V/S are stable, pt meds were given as order. Pt bed alarm is on. Pt is station in from of the nurse station due to she is high risk for fall.
--- NOTE | 2022-12-05 06:31 | MHC.EDTECH ---
PT 1X assisted to bedside commode. Pt 1x assisted back to bed and given warm blankets. PT call ugalde in reach
[2022-12-05] MEDS: Acetaminophen 325 MG TABLET 650 MG PO ×2 (08:28→21:22)
[2022-12-05] MEDS: Celecoxib 200 MG CAPSULE PO ×2 (08:28→21:22)
[2022-12-05] MEDS: Furosemide 40 MG TABLET PO (08:29)
[2022-12-05] MEDS: amLODIPine Besylate 10 MG TABLET PO (08:29)
[2022-12-05] MEDS: atenoloL 100 MG TABLET PO (08:29)
[2022-12-05] MEDS: Losartan Potassium 50 MG TABLET 100 MG PO (08:29)
[2022-12-05] MEDS: Sertraline HCL 100 MG TABLET PO (08:29)
--- NOTE | 2022-12-05 09:00 | MHC.EDTECH ---
pt disoriented and asking when its time to leave. Pt reassured, repositioned and turned tv on for pt to watch.
[2022-12-05] MEDS: OLANZapine 7.5 MG TABLET PO (09:07)
--- NOTE | 2022-12-05 09:30 | MHC.EDTECH ---
nurse assisted pt to the commode.
--- NOTE | 2022-12-05 11:50 | MHC.EDTECH ---
pt used the commode and wanted to be back in bed. bed alarm back on once pt was placed in bed.
[2022-12-05 18:52] VITALS: BP 123/63; PULSE 52; RESP 16; TEMP 36.9; O2SAT 97
--- NOTE | 2022-12-05 21:08 | MHC.CM.ED ---
Genny from the [employer] called and left message. CM called back and left message. Meet with daughter, Teodora. She requested CM send updates with request to review pending application. ALso requested that CM make facilities aware that she is working with the [employer]. Updates sent to Krupa Amanda, Jo Amanda, [facility] and [facility]. Teodora tells CM that all requests for additional financials have been sent to and that [facility] is following. [facility] has told Teodora that facilities will often times accept patients with MH pending. CM following for discharge planning. [facility] is pleasant and cooperative. Confused as to place and situation. Eating well.
[2022-12-05] MEDS: Melatonin 3 MG TABLET 6 MG PO (22:16)
--- NOTE | 2022-12-06 00:03 | PC.NURSE ---
Pt's V/S are stable, pt was sitting on the chair watching tv calm, pt was medicated as order by the MAR. Pt's asleep.
[2022-12-06] MEDS: Omeprazole 20 MG CAPSULE.DR PO (06:28)
[2022-12-06 06:35] VITALS: BP 142/82; PULSE 57; RESP 17; TEMP 36.6; O2SAT 97
[2022-12-06] MEDS: Acetaminophen 325 MG TABLET 650 MG PO ×2 (09:44→21:23)
[2022-12-06 09:45] VITALS: BP 144/80; PULSE 76; O2SAT 96
[2022-12-06] MEDS: OLANZapine 7.5 MG TABLET PO (09:45)
[2022-12-06] MEDS: Celecoxib 200 MG CAPSULE PO ×2 (09:45→21:23)
[2022-12-06] MEDS: Sertraline HCL 100 MG TABLET PO (09:45)
[2022-12-06] MEDS: Furosemide 40 MG TABLET PO (09:46)
[2022-12-06] MEDS: Losartan Potassium 50 MG TABLET 100 MG PO (09:49)
[2022-12-06] MEDS: atenoloL 100 MG TABLET PO (09:49)
[2022-12-06] MEDS: amLODIPine Besylate 10 MG TABLET PO (09:49)
--- NOTE | 2022-12-06 10:00 | PC.NURSE ---
ASSUMED CARE OF THIS PT AT 0700. PT DENIES PAIN, VSS. PT ASSISTED TO BEDSIDE COMMODE, CLEANED UP AND IN RECLINER FOR BREAKFAST, MEDS GIVEN DOCUMENTED.
--- NOTE | 2022-12-06 11:55 | MHC.EDTECH ---
Cleaned patient and assisted from cammode to the bed. Lisette Horner
[2022-12-06 22:48] VITALS: BP 97/54; PULSE 69; O2SAT 94
--- NOTE | 2022-12-07 00:27 | PC.NURSE ---
Patient medicated per MAR. VSS. Call ugalde within patient's reach.
[2022-12-07 04:10] VITALS: BP 118/78; PULSE 72; RESP 16; TEMP 36.4; O2SAT 95
[2022-12-07] MEDS: Omeprazole 20 MG CAPSULE.DR PO (06:28)
[2022-12-07 08:29] VITALS: BP 119/69; PULSE 76; RESP 16; TEMP 35.6; O2SAT 96
[2022-12-07] MEDS: OLANZapine 7.5 MG TABLET PO (09:36)
[2022-12-07] MEDS: Celecoxib 200 MG CAPSULE PO ×2 (09:36→20:57)
[2022-12-07] MEDS: Losartan Potassium 50 MG TABLET 100 MG PO (09:36)
[2022-12-07] MEDS: Furosemide 40 MG TABLET PO (09:36)
[2022-12-07] MEDS: Acetaminophen 325 MG TABLET 650 MG PO ×2 (09:37→20:56)
[2022-12-07] MEDS: Sertraline HCL 100 MG TABLET PO (09:37)
[2022-12-07] MEDS: atenoloL 100 MG TABLET PO (09:37)
[2022-12-07] MEDS: amLODIPine Besylate 10 MG TABLET PO (09:37)
[2022-12-07 15:59] VITALS: BP 102/61; PULSE 65; RESP 16; TEMP 36.3; O2SAT 96
--- NOTE | 2022-12-07 17:41 | PC.NURSE ---
PT DENIES PAIN, VSS, ASSISTED TO BEDSIDE COMMODE. IN RECLINER FOR BREAKFAST AND LUNCH, MEDS GIVEN DOCUMENTED. RESTING QUIETLY, NO APPARENT DISTRESS. NO COMPLAINTS, PT'S DAUGHTER AT BEDSIDE.
[2022-12-07 20:32] VITALS: BP 118/59; PULSE 70; RESP 18; TEMP 36.6; O2SAT 99
--- NOTE | 2022-12-07 21:00 | PC.NURSE ---
This typewriter aligner assumed care of this Pt at 1900. Pt A&O to self, denies any pain. Pt sitting in recliner watching TV at this time. Meds given as documented. Using bedside commode with staff assist. PO fluids provided.
--- NOTE | 2022-12-07 22:04 | MHC.CM.ED ---
[facility] requested nurses notes for review. Uploaded ED transfer report with VS and Nurses Notes.
[2022-12-08 05:39] VITALS: BP 146/67; PULSE 76; RESP 18; TEMP 37.1; O2SAT 98
[2022-12-08] MEDS: Omeprazole 20 MG CAPSULE.DR PO (05:55)
[2022-12-08] MEDS: Furosemide 40 MG TABLET PO (07:42)
[2022-12-08] MEDS: Celecoxib 200 MG CAPSULE PO ×2 (07:42→21:11)
[2022-12-08] MEDS: Sertraline HCL 100 MG TABLET PO (07:42)
[2022-12-08] MEDS: atenoloL 100 MG TABLET PO (07:42)
[2022-12-08] MEDS: OLANZapine 7.5 MG TABLET PO (07:42)
[2022-12-08] MEDS: Acetaminophen 325 MG TABLET 650 MG PO ×2 (07:43→21:11)
[2022-12-08] MEDS: Losartan Potassium 50 MG TABLET 100 MG PO (07:43)
[2022-12-08] MEDS: amLODIPine Besylate 10 MG TABLET PO (07:43)
--- NOTE | 2022-12-08 08:06 | PC.NURSE ---
pt ambulates independtly to steward health care systemode and back to bed. ate 100% of breakfast. medicated per emar. awaiting placement.
--- NOTE | 2022-12-08 09:15 | MHC.EDTECH ---
patient wash and cleaned ,bed change patient reposition and relaxing watching tv.
[2022-12-08 14:54] VITALS: BP 125/66; PULSE 65; RESP 14; O2SAT 96
--- NOTE | 2022-12-08 18:48 | PC.NURSE ---
pt resting comfortably in bed, did not want to eat dinner but states will maybe want to later.
--- NOTE | 2022-12-08 21:12 | MHC.EDTECH ---
pt was not hungry for dinner and has been resting for most of the shift. pt woke up for the nurse to give medication.
[2022-12-08 22:53] VITALS: BP 141/65; PULSE 78; RESP 16; O2SAT 95
[2022-12-09 06:42] VITALS: BP 138/67; PULSE 65; RESP 18; TEMP 37; O2SAT 97
[2022-12-09] MEDS: Omeprazole 20 MG CAPSULE.DR PO (06:47)
[2022-12-09] MEDS: OLANZapine 7.5 MG TABLET PO (08:43)
[2022-12-09] MEDS: Celecoxib 200 MG CAPSULE PO ×2 (08:43→20:40)
[2022-12-09] MEDS: Losartan Potassium 50 MG TABLET 100 MG PO (08:43)
[2022-12-09] MEDS: Sertraline HCL 100 MG TABLET PO (08:43)
[2022-12-09] MEDS: amLODIPine Besylate 10 MG TABLET PO (08:43)
[2022-12-09] MEDS: atenoloL 100 MG TABLET PO (08:44)
[2022-12-09] MEDS: Furosemide 40 MG TABLET PO (08:44)
[2022-12-09] MEDS: Acetaminophen 325 MG TABLET 650 MG PO ×2 (08:44→20:39)
[2022-12-09 14:28] VITALS: BP 108/70; PULSE 55; RESP 12; TEMP 36.4
[2022-12-09 19:38] VITALS: BP 138/71; PULSE 64; TEMP 36.6; O2SAT 98
--- NOTE | 2022-12-09 20:44 | PC.NURSE ---
Pt Concious and alert to person, is eating a blueblerry muffin during med pass. Pt is calm and cooperative reporting general body pain.
[2022-12-10 00:28] VITALS: BP 129/75; PULSE 58; RESP 16; TEMP 36.2; O2SAT 94
--- NOTE | 2022-12-10 02:34 | MHC.EDTECH ---
PT 1X assisted to bedside commode.Pt voided urine and assisted with pericare. Pt 1x assisted to bed. Pt call be in reach
[2022-12-10 06:09] VITALS: BP 143/77; PULSE 57; RESP 15; TEMP 36.5; O2SAT 96
[2022-12-10 06:20] LABS: Glucose, Whole Blood 99 mg/dL (60-115)
[2022-12-10] MEDS: Omeprazole 20 MG CAPSULE.DR PO (06:23)
[2022-12-10] MEDS: amLODIPine Besylate 10 MG TABLET PO (08:22)
[2022-12-10] MEDS: Furosemide 40 MG TABLET PO (08:24)
[2022-12-10] MEDS: Losartan Potassium 50 MG TABLET 100 MG PO (08:25)
[2022-12-10] MEDS: Celecoxib 200 MG CAPSULE PO ×2 (08:25→20:04)
[2022-12-10] MEDS: Sertraline HCL 100 MG TABLET PO (08:26)
[2022-12-10] MEDS: OLANZapine 7.5 MG TABLET PO (08:26)
[2022-12-10] MEDS: Acetaminophen 325 MG TABLET 650 MG PO ×2 (08:30→20:03)
[2022-12-10 08:35] VITALS: PULSE 56
[2022-12-10 14:33] VITALS: BP 133/64; PULSE 63; RESP 12; O2SAT 97
--- NOTE | 2022-12-10 17:48 | MHC.EDTECH ---
Patient 1:1 assist to commode and back to bed.
--- NOTE | 2022-12-10 23:01 | PC.NURSE ---
Addendum entered by Fracnine Baxter 12/11/22 04:05: Pt continues to sleep, RR 18, no apparent distress. Original Note: This telegraphic typewriter installer assumed care of this Pt at 1900. Pt awake, watching TV denies any pain. One assist to bedside commode. A&O to self. Meds given as documented.
[2022-12-11 00:01] VITALS: BP 131/76; PULSE 70; RESP 16; TEMP 36.7; O2SAT 95
--- NOTE | 2022-12-11 00:05 | MHC.EDTECH ---
i resumed care for 11-7 shift , pt is resting vitals were taken
[2022-12-11 04:41] VITALS: BP 131/76; PULSE 81; RESP 17; TEMP 36.1; O2SAT 96
--- NOTE | 2022-12-11 04:42 | MHC.EDTECH ---
pt had a good night , vitals was taken and pt used the commode
[2022-12-11] MEDS: Omeprazole 20 MG CAPSULE.DR PO (06:14)
[2022-12-11 08:55] VITALS: BP 175/80; PULSE 70; RESP 18; O2SAT 96
[2022-12-11] MEDS: OLANZapine 7.5 MG TABLET PO (08:57)
[2022-12-11] MEDS: amLODIPine Besylate 10 MG TABLET PO (08:57)
[2022-12-11] MEDS: Celecoxib 200 MG CAPSULE PO ×2 (08:58→20:52)
[2022-12-11] MEDS: Sertraline HCL 100 MG TABLET PO (08:58)
[2022-12-11] MEDS: Acetaminophen 325 MG TABLET 650 MG PO ×2 (08:58→20:52)
[2022-12-11] MEDS: Losartan Potassium 50 MG TABLET 100 MG PO (08:58)
[2022-12-11] MEDS: Furosemide 40 MG TABLET PO (08:58)
[2022-12-11] MEDS: atenoloL 100 MG TABLET PO (08:59)
--- NOTE | 2022-12-11 16:53 | MHC.CM.ED ---
CM received a telephone call from Genny Duggan at [facility] [employer]. Returned call and left message. No bed offers at this time.
[2022-12-11 20:02] VITALS: BP 131/65; PULSE 65; RESP 16; TEMP 36.5; O2SAT 97
--- NOTE | 2022-12-11 22:47 | PC.NURSE ---
pt sleeping on hospital bed at this time
--- NOTE | 2022-12-12 01:28 | PC.NURSE ---
pt sleeping comfortably on hospital bed. blankets repositioned at this time
--- NOTE | 2022-12-12 04:06 | PC.NURSE ---
pt sleeping comfortably on hospital bed positioned on back RR 14 nonlabored
[2022-12-12 05:08] VITALS: BP 148/80; PULSE 75; RESP 14; TEMP 36.8; O2SAT 96
--- NOTE | 2022-12-12 06:47 | PC.NURSE ---
this rn and metal reed tuner assisted pt to sit up in bed. this rn attempted to medicate pt according to mar. pt refused medication. document accordingly in mar
[2022-12-12 08:14] VITALS: BP 140/85; PULSE 78; RESP 18; TEMP 36.6; O2SAT 98
[2022-12-12] MEDS: Celecoxib 200 MG CAPSULE PO ×2 (09:42→21:23)
[2022-12-12] MEDS: atenoloL 100 MG TABLET PO (09:42)
[2022-12-12] MEDS: Sertraline HCL 100 MG TABLET PO (09:42)
[2022-12-12] MEDS: amLODIPine Besylate 10 MG TABLET PO (09:42)
[2022-12-12] MEDS: Furosemide 40 MG TABLET PO (09:42)
[2022-12-12] MEDS: OLANZapine 7.5 MG TABLET PO (09:42)
[2022-12-12] MEDS: Acetaminophen 325 MG TABLET 650 MG PO ×2 (09:42→21:23)
[2022-12-12] MEDS: Losartan Potassium 50 MG TABLET 100 MG PO (09:42)
--- NOTE | 2022-12-12 10:33 | PC.NURSE ---
Patient alert and oriented to self only. Denies pain, chest pain, SOB. Resting comfortably, easily arousable. Took meds whole with water, no issues. Lung sounds clear throughout, abd soft, +bowel sounds. OOB to commode 1 assist. VSS. All needs met.
[2022-12-12 13:46] VITALS: BP 140/70; PULSE 56; RESP 18; TEMP 36.7; O2SAT 97
[2022-12-12 15:46] VITALS: BP 136/70; PULSE 74; RESP 16; TEMP 36.8; O2SAT 97
--- NOTE | 2022-12-12 15:47 | MHC.EDTECH ---
THIS PCT ASSUMED CARE OF PT AT 1500 ,ROUNDING DONE ,VITAL SIGN TAKEN ,PT SLEEPING ,HAD ICE CREAM FOR SNACK BEFORE SHE FELL ASLEEP .
--- NOTE | 2022-12-12 18:01 | MHC.EDTECH ---
pt went for a short walk with assistance from staff ,then sat on bed side commode and void lg amount of urine ,care given .
--- NOTE | 2022-12-12 19:05 | MHC.EDTECH ---
pt sat up at the side of bed dinner served ,pt ate 100 % of turkey ,green beans and rice ,had a cup of soda ,ate 1 pudding and a few cookies that pt daughter brought in ,after dinner patient had an extra lg bowel movement ,bed bath given ,patient back in bed resting quietly .
--- NOTE | 2022-12-12 21:24 | MHC.CM.ED ---
No updates. No return telephone call from Genny payne [facility]. Will reach out to Daughter Teodora 12/13.
[2022-12-12 21:29] VITALS: BP 133/68; PULSE 66; RESP 16; TEMP 36.8; O2SAT 97
--- NOTE | 2022-12-12 22:00 | MHC.EDTECH ---
2200 rounding done ,vitals sign taken ,pt sleeping comfortable in bed .
[2022-12-13 06:00] VITALS: BP 149/68; PULSE 78; RESP 18; TEMP 36.3; O2SAT 100
--- NOTE | 2022-12-13 06:07 | PC.NURSE ---
Assumed care of pt. at 1900. Pt. resting quietly in bed at that time. Pt. up one time to use bathroom. Pt. slept through most of the night with no concerns noted. VSS. Pt. is pending rehab placement. Will continue to monitor.
[2022-12-13] MEDS: Sertraline HCL 100 MG TABLET PO (08:49)
[2022-12-13] MEDS: atenoloL 100 MG TABLET PO (08:49)
[2022-12-13] MEDS: Furosemide 40 MG TABLET PO (08:49)
[2022-12-13] MEDS: amLODIPine Besylate 10 MG TABLET PO (08:49)
[2022-12-13] MEDS: Celecoxib 200 MG CAPSULE PO ×2 (08:49→20:15)
[2022-12-13] MEDS: Acetaminophen 325 MG TABLET 650 MG PO ×2 (08:49→20:15)
[2022-12-13] MEDS: Losartan Potassium 50 MG TABLET 100 MG PO (08:50)
[2022-12-13] MEDS: Omeprazole 20 MG CAPSULE.DR PO (08:50)
[2022-12-13] MEDS: OLANZapine 7.5 MG TABLET PO (08:50)
--- NOTE | 2022-12-13 09:53 | PC.NURSE ---
Pt ate 100% of breakfast. Resting comfortably.
--- NOTE | 2022-12-13 10:13 | MHC.EDTECH ---
patient wash and clean . patient up in recliner relaxing watching tv. Patient had ex large BM loose.
[2022-12-13] MEDS: Loperamide HCl 2 MG CAPSULE PO (14:02)
--- NOTE | 2022-12-13 14:06 | PC.NURSE ---
Pt had episode of diarrhea earlier today, now c/o belly discomfort, PRN medication given.
[2022-12-13 14:18] VITALS: BP 94/53; PULSE 51; RESP 12; O2SAT 95
--- NOTE | 2022-12-13 15:48 | MHC.EDTECH ---
Gave patient a snack (pudding).
--- NOTE | 2022-12-13 16:38 | MHC.EDTECH ---
Assist transferred patient from recliner to bed and gave warm blanket.
--- NOTE | 2022-12-13 18:07 | MHC.EDTECH ---
Assist patient with bed transfer to commode. Patient void. 1:1 assist from commode patient ambulated to recliner.
--- NOTE | 2022-12-13 18:36 | MHC.EDTECH ---
Brought patient blanket.
--- NOTE | 2022-12-13 20:51 | MHC.EDTECH ---
Patient ambulated to commode from recliner with 1:1 assist. Patient had a large B/M. Assist patient in wiping and patient pivot onto the bed.
[2022-12-14 07:19] LABS: Glucose, Whole Blood 101 mg/dL (60-115)
[2022-12-14] MEDS: Celecoxib 200 MG CAPSULE PO ×2 (07:44→22:21)
[2022-12-14] MEDS: OLANZapine 7.5 MG TABLET PO (07:45)
[2022-12-14] MEDS: Furosemide 40 MG TABLET PO (07:45)
[2022-12-14] MEDS: Sertraline HCL 100 MG TABLET PO (07:45)
[2022-12-14] MEDS: amLODIPine Besylate 10 MG TABLET PO (07:45)
[2022-12-14] MEDS: Omeprazole 20 MG CAPSULE.DR PO (07:45)
[2022-12-14] MEDS: Losartan Potassium 50 MG TABLET 100 MG PO (07:45)
[2022-12-14] MEDS: Acetaminophen 325 MG TABLET 650 MG PO ×2 (07:46→22:21)
[2022-12-14 07:48] VITALS: BP 146/79; PULSE 88; RESP 14; TEMP 36.1; O2SAT 98
--- NOTE | 2022-12-14 09:32 | MHC.CM.ED ---
Patient remains in ER overflow unit. Patient is still not coming up as active with [employer]. No bed offers at this time. Still waiting to hear from [facility] about a bed offer. Continue to monitor for d/c needs.
[2022-12-14 13:01] LABS: Glucose, Whole Blood 93 mg/dL (60-115)
--- NOTE | 2022-12-14 15:24 | MHC.EDTECH ---
Patient out of bed to use commode and had bowel movement. Patient cleaned up and repositioned in bed.
--- NOTE | 2022-12-14 15:40 | PC.NURSE ---
patient up to the bedside commode. alert, oriented to self only. verbally redirectable. bed alarm in place for safety
[2022-12-14 17:22] VITALS: BP 140/68; PULSE 62; RESP 16; TEMP 36.3; O2SAT 98
[2022-12-14 20:24] LABS: Glucose, Whole Blood 97 mg/dL (60-115)
--- NOTE | 2022-12-14 22:24 | PC.NURSE ---
Pt's new bed linen and tashi in place. pt has full water pitch at bedside. PT is calm and asleep. Pt meds were given as order.
--- NOTE | 2022-12-15 00:30 | MHC.CM.ED ---
Spoke with daughter Teodora david. No word/notice/mail from [employer]. Teodora will email [facility] to call CM. Have attempted to reach Genny at [facility], but are missing each other. Pt is pleasant, confused and cooperative. CM will follow for discharge planning.
[2022-12-15] MEDS: Omeprazole 20 MG CAPSULE.DR PO (05:57)
[2022-12-15 06:01] VITALS: BP 171/82; PULSE 73; RESP 17; TEMP 36.9; O2SAT 95
[2022-12-15] MEDS: Losartan Potassium 50 MG TABLET 100 MG PO (08:26)
[2022-12-15] MEDS: OLANZapine 7.5 MG TABLET PO (08:26)
[2022-12-15] MEDS: Acetaminophen 325 MG TABLET 650 MG PO ×2 (08:26→21:51)
[2022-12-15] MEDS: Sertraline HCL 100 MG TABLET PO (08:26)
[2022-12-15] MEDS: Furosemide 40 MG TABLET PO (08:26)
[2022-12-15] MEDS: Celecoxib 200 MG CAPSULE PO ×2 (08:26→21:51)
[2022-12-15] MEDS: amLODIPine Besylate 10 MG TABLET PO (08:27)
[2022-12-15] MEDS: atenoloL 100 MG TABLET PO (08:27)
--- NOTE | 2022-12-15 08:37 | PC.NURSE ---
Patient sleeping is easily aroused confused at baseline no distress noted tolerated PO medications and fluids will CTM
--- NOTE | 2022-12-15 11:07 | PC.NURSE ---
patient currently sleeping,vitals have been stable, lungs clear/diminished throughout, pt awaiting placement, turn/position to comfort, call ugalde within reach, fall precautions intact, will continue to monitor.
--- NOTE | 2022-12-15 11:20 | PC.NURSE ---
pt alert. pt repositioned in bed. resting comfortable in no apparent distress. will continue to monitor.
[2022-12-15 12:52] VITALS: BP 144/71; PULSE 56; RESP 18; TEMP 36.6; O2SAT 98
[2022-12-15 14:00] VITALS: BP 142/74; PULSE 63; RESP 18; TEMP 36.8; O2SAT 98
--- NOTE | 2022-12-15 14:23 | PC.NURSE ---
patient awake/alert to self, pt oob with assist to bedside commode, vitals stable, fall precautions intact/bed alarm on, pt refused lunch, will continue to monitor.
--- NOTE | 2022-12-15 16:13 | PC.NURSE ---
pt currently sleeping. pt awakes briefly and returns to sleep.
[2022-12-15 22:00] VITALS: BP 143/68; PULSE 60; RESP 16; TEMP 36.6; O2SAT 97
--- NOTE | 2022-12-16 | MHC.EDTECH ---
0000 rounding done ,pt sleeping .
[2022-12-16 05:51] VITALS: BP 142/70; PULSE 64; RESP 16; TEMP 36.7; O2SAT 97
--- NOTE | 2022-12-16 05:53 | MHC.EDTECH ---
0600 rounding done ,vitals sign taken pt sleeping ,fresh water given .
--- NOTE | 2022-12-16 09:30 | PC.NURSE ---
Addendum entered by Ban Calixto RN 12/16/22 12:14: fall precautions intact Original Note: assumed care for this patient at 915 am , pt awake, alert to self only, vss, oob to commode with assist, currently denies pain discomfort, watching tv, call ugalde within reach, will continue to monitor.
[2022-12-16] MEDS: Sertraline HCL 100 MG TABLET PO (09:44)
[2022-12-16] MEDS: Furosemide 40 MG TABLET PO (09:44)
[2022-12-16] MEDS: OLANZapine 7.5 MG TABLET PO (09:44)
[2022-12-16] MEDS: Acetaminophen 325 MG TABLET 650 MG PO ×2 (09:45→20:34)
[2022-12-16] MEDS: Losartan Potassium 50 MG TABLET 100 MG PO (09:46)
[2022-12-16] MEDS: Celecoxib 200 MG CAPSULE PO ×2 (09:47→20:34)
[2022-12-16] MEDS: amLODIPine Besylate 10 MG TABLET PO (09:47)
[2022-12-16] MEDS: atenoloL 100 MG TABLET PO (09:48)
--- NOTE | 2022-12-16 09:50 | PC.NURSE ---
Pt is awake, and alert. Nurse gave morning meds. Nurse noted that Prilosec had previously been removed from the Pyxis, though had not been given according to the MAR. Prilosec was held.
--- NOTE | 2022-12-16 10:54 | MHC.EDTECH ---
Assisted patient from bed to recliner. Changed patients linen. Lisette Horner
[2022-12-16 14:00] VITALS: BP 134/73; PULSE 56; RESP 18; TEMP 35.7; O2SAT 100
--- NOTE | 2022-12-16 15:04 | MHC.CM.ED ---
Pt boarding in ED while waiting for [facility] activation for LTC placement. Pt's dtr to follow up with the [facility]. CM to follow up w/dtr on 12/17
--- NOTE | 2022-12-16 17:27 | PC.NURSE ---
Pt sitting up in bed. no apparent distress. Pt's mood elevates when talking about the photo of their family member at bedside.
--- NOTE | 2022-12-16 17:47 | PC.NURSE ---
assisted pt to bedside commode and back to bed
--- NOTE | 2022-12-16 19:17 | PC.NURSE ---
Assumed care for patient pt recently was assisted to bedside commode and back to bed placed in semi yung's position. Pt is now resting with eyes closed. Daughter at pt bedside.
--- NOTE | 2022-12-16 20:36 | PC.NURSE ---
Administered pain meds per DEC. Pt resting quietly eyes open looking at TV that is on.
[2022-12-16 22:00] VITALS: BP 128/65; PULSE 68; RESP 18; TEMP 36.5; O2SAT 96
[2022-12-17 06:00] VITALS: BP 148/77; PULSE 78; RESP 20; TEMP 36.4; O2SAT 97
[2022-12-17] MEDS: Omeprazole 20 MG CAPSULE.DR PO (06:40)
[2022-12-17] MEDS: amLODIPine Besylate 10 MG TABLET PO (09:08)
[2022-12-17] MEDS: Acetaminophen 325 MG TABLET 650 MG PO ×2 (09:09→20:25)
[2022-12-17] MEDS: atenoloL 100 MG TABLET PO (09:09)
[2022-12-17] MEDS: Celecoxib 200 MG CAPSULE PO ×2 (09:09→20:25)
[2022-12-17] MEDS: Sertraline HCL 100 MG TABLET PO (09:09)
[2022-12-17] MEDS: Losartan Potassium 50 MG TABLET 100 MG PO (09:09)
[2022-12-17] MEDS: OLANZapine 7.5 MG TABLET PO (09:09)
[2022-12-17] MEDS: Furosemide 40 MG TABLET PO (09:10)
[2022-12-17] MEDS: Loperamide HCl 2 MG CAPSULE PO (09:15)
--- NOTE | 2022-12-17 09:18 | MHC.CM.ED ---
Patient remains in ER overflow unit. [facility] not [facility] per [facility] [place]. Continue to monitor for d/c needs.
--- NOTE | 2022-12-17 10:45 | PC.NURSE ---
Pt up to bedside commode with large loose BM.
[2022-12-17 14:00] VITALS: BP 114/60; PULSE 53; RESP 16; TEMP 36.4; O2SAT 98
--- NOTE | 2022-12-17 15:02 | PC.NURSE ---
Pt ambulated around overflow unit with walker and assist from RN.
[2022-12-18] MEDS: Omeprazole 20 MG CAPSULE.DR PO (06:05)
--- NOTE | 2022-12-18 06:17 | PC.NURSE ---
pt slept during the shift, denies any complaints
[2022-12-18 08:16] VITALS: BP 132/77; PULSE 72; RESP 17; TEMP 36.4; O2SAT 99
--- NOTE | 2022-12-18 08:23 | MHC.CM.ED ---
Patient remains in ER overflow. Patient's [facility] is still not active per [facility] [place]. Continue to monitor for d/c needs.
[2022-12-18] MEDS: Furosemide 40 MG TABLET PO (10:33)
[2022-12-18] MEDS: Sertraline HCL 100 MG TABLET PO (10:33)
[2022-12-18] MEDS: amLODIPine Besylate 10 MG TABLET PO (10:33)
[2022-12-18] MEDS: atenoloL 100 MG TABLET PO (10:33)
[2022-12-18] MEDS: OLANZapine 7.5 MG TABLET PO (10:33)
[2022-12-18] MEDS: Acetaminophen 325 MG TABLET 650 MG PO ×2 (10:33→20:07)
[2022-12-18] MEDS: Celecoxib 200 MG CAPSULE PO ×2 (10:34→20:08)
[2022-12-18] MEDS: Losartan Potassium 50 MG TABLET 100 MG PO (10:34)
--- NOTE | 2022-12-18 12:29 | MHC.EDTECH ---
Pt ambulated to bathroom with walker, standby assist. Pt sitting up in bed watching tv, call ugalde within place.
[2022-12-18 13:47] VITALS: BP 116/56; PULSE 55; RESP 17; TEMP 35.3; O2SAT 97
[2022-12-18 22:19] VITALS: BP 128/72; PULSE 70; RESP 16; TEMP 36.6; O2SAT 96
--- NOTE | 2022-12-18 22:52 | PC.NURSE ---
Patient alert to self. Patient became paranoid and refused to take 2 tylenol only would take one. Patient had 2 bowel movements tonight around 945pm and again at 2215. Patient had one episode of incontinence of bowels. Patient uses commode to void. Patient denies any pain.
[2022-12-19 05:41] VITALS: BP 118/68; PULSE 72; RESP 16; TEMP 36.6; O2SAT 96
[2022-12-19] MEDS: Omeprazole 20 MG CAPSULE.DR PO (07:25)
[2022-12-19 09:10] VITALS: BP 143/65; PULSE 75; RESP 16; O2SAT 99
[2022-12-19] MEDS: Furosemide 40 MG TABLET PO (09:12)
[2022-12-19] MEDS: amLODIPine Besylate 10 MG TABLET PO (09:12)
[2022-12-19] MEDS: atenoloL 100 MG TABLET PO (09:12)
[2022-12-19] MEDS: Celecoxib 200 MG CAPSULE PO ×2 (09:12→20:44)
[2022-12-19] MEDS: Losartan Potassium 50 MG TABLET 100 MG PO (09:12)
[2022-12-19] MEDS: Sertraline HCL 100 MG TABLET PO (09:12)
[2022-12-19] MEDS: OLANZapine 7.5 MG TABLET PO (09:13)
[2022-12-19] MEDS: Acetaminophen 325 MG TABLET 650 MG PO ×2 (09:13→20:44)
[2022-12-19 15:39] VITALS: BP 112/76; PULSE 93; RESP 20; TEMP 36.9; O2SAT 94
--- NOTE | 2022-12-19 17:02 | MHC.CM.ED ---
CM called Genny Duggan at [facility] regarding MH application status updates. Message left for return telephone call. CM following for d/c needs.
--- NOTE | 2022-12-19 18:55 | PC.NURSE ---
Patient remains calm and cooperative throughout shift. Using bed side commode with one assist. Daughter in at bedside.
--- NOTE | 2022-12-19 20:47 | PC.NURSE ---
Pt resting at the bedside in no apparent distress. Medicated as ordered. Tolerated well. Will continue to monitor.
[2022-12-19 22:00] VITALS: RESP 14
--- NOTE | 2022-12-19 22:31 | PC.NURSE ---
Pt resting at the bedside in no apparent distress. Re-positioned. Provided sandwich and drink as requested. Will continue to monitor.
--- NOTE | 2022-12-20 03:25 | PC.NURSE ---
Pt sleeping at the bedside in no apparent distress. Breaths are even, regular, and unlabored with equal chest rises. Will continue to monitor.
[2022-12-20] MEDS: Omeprazole 20 MG CAPSULE.DR PO (05:31)
[2022-12-20 06:00] VITALS: BP 155/84; PULSE 82; RESP 16; TEMP 36.1; O2SAT 97
[2022-12-20 07:35] VITALS: BP 157/87; PULSE 71; RESP 16; TEMP 36.4; O2SAT 96
[2022-12-20] MEDS: Sertraline HCL 100 MG TABLET PO (09:29)
[2022-12-20] MEDS: atenoloL 100 MG TABLET PO (09:29)
[2022-12-20] MEDS: Furosemide 40 MG TABLET PO (09:29)
[2022-12-20] MEDS: Acetaminophen 325 MG TABLET 650 MG PO ×2 (09:29→20:56)
[2022-12-20] MEDS: amLODIPine Besylate 10 MG TABLET PO (09:29)
--- NOTE | 2022-12-20 09:29 | MHC.CM.ED ---
Patient remains in ER overflow unit. Patient's [facility] is not active with [facility] [place]. Attempted to reach Genny at [facility] via telephone at [phone].Left message requesting return telephone call. Continue to monitor for d/c needs.
[2022-12-20] MEDS: OLANZapine 7.5 MG TABLET PO (09:30)
[2022-12-20] MEDS: Losartan Potassium 50 MG TABLET 100 MG PO (09:30)
[2022-12-20] MEDS: Celecoxib 200 MG CAPSULE PO ×2 (09:30→20:56)
[2022-12-20 18:20] VITALS: BP 150/94; PULSE 74; RESP 13; TEMP 36.8; O2SAT 97
--- NOTE | 2022-12-20 18:41 | PC.NURSE ---
Pt is pleasantly confused, requires set up for meals. Pt is cont, able to get OOB to commode and recliner with a slow, steady gait. Pt takes meds crushed in apple sauce. Per CM, pt is pending [employer] application. Pt had 2 BM's today in bedside commode. pt able to repo self in bed and in recliner. pt did c/o knee pain during periods of activity that resolved with rest.
--- NOTE | 2022-12-20 23:40 | PC.NURSE ---
Assumed care of pt. at 1900. Pt. asleep at that time. Respirations even and unlabored. No distress noted. Pt. later awoke and was medicated per MAR and given icecream per request. Pt. currently resting quietly in bed watching tv. Will continue to monitor.
--- NOTE | 2022-12-21 03:43 | PC.NURSE ---
Pt. sleeping, respirations even and unlabored, no distress noted. Will continue to monitor.
[2022-12-21 06:00] VITALS: BP 158/84; PULSE 76; RESP 14; TEMP 36.1; O2SAT 99
[2022-12-21] MEDS: Omeprazole 20 MG CAPSULE.DR PO (06:43)
[2022-12-21 09:05] VITALS: BP 147/76
--- NOTE | 2022-12-21 09:07 | PC.NURSE ---
Patient resting quietly with eyes closed, awoken by this RN for morning VS and medications. Patient becoming agitated while taking VS, refusing medications loudly stating Will you just get out of here already, I don't want any pills . VSS. Patient left to rest, now resting quietly with eyes closed again. This RN will re-attempt medication administration later this morning.
[2022-12-21] MEDS: Celecoxib 200 MG CAPSULE PO ×2 (10:48→20:09)
[2022-12-21] MEDS: OLANZapine 7.5 MG TABLET PO (10:48)
[2022-12-21] MEDS: atenoloL 100 MG TABLET PO (10:48)
[2022-12-21] MEDS: Sertraline HCL 100 MG TABLET PO (10:48)
[2022-12-21] MEDS: amLODIPine Besylate 10 MG TABLET PO (10:48)
[2022-12-21] MEDS: Furosemide 40 MG TABLET PO (10:49)
[2022-12-21] MEDS: Losartan Potassium 50 MG TABLET 100 MG PO (10:50)
[2022-12-21] MEDS: Acetaminophen 325 MG TABLET 650 MG PO ×2 (10:50→20:09)
--- NOTE | 2022-12-21 11:40 | PC.NURSE ---
Patient resting in bed no distres noted confused at baseline will CTM
--- NOTE | 2022-12-21 12:15 | MHC.EDTECH ---
Assisted patient with personal hygiene and from commode to the bed. Lisette Horner
[2022-12-21 15:58] VITALS: BP 132/63; PULSE 60; RESP 18; TEMP 36.4; O2SAT 97
--- NOTE | 2022-12-21 16:00 | MHC.CM.ED ---
Patient remains in Er overflow. Patient's [facility] is still not active per [employer] [place]. No return call received from Genny [facility]. Continue to monitor for d/c needs.
[2022-12-21 22:00] VITALS: BP 118/53; PULSE 64; RESP 16; TEMP 36.6
--- NOTE | 2022-12-22 01:01 | PC.NURSE ---
Pt resting in bed laying on left side of body. Respirations even and unlabored.
[2022-12-22 06:27] VITALS: BP 167/92; PULSE 60; RESP 16; TEMP 36.2; O2SAT 97
[2022-12-22] MEDS: Omeprazole 20 MG CAPSULE.DR PO (06:30)
[2022-12-22] MEDS: Acetaminophen 325 MG TABLET 650 MG PO ×2 (09:09→20:45)
[2022-12-22] MEDS: atenoloL 100 MG TABLET PO (09:11)
[2022-12-22] MEDS: amLODIPine Besylate 10 MG TABLET PO (09:11)
[2022-12-22] MEDS: Losartan Potassium 50 MG TABLET 100 MG PO (09:11)
[2022-12-22] MEDS: Celecoxib 200 MG CAPSULE PO ×2 (09:13→20:45)
[2022-12-22] MEDS: OLANZapine 7.5 MG TABLET PO (09:13)
[2022-12-22] MEDS: Sertraline HCL 100 MG TABLET PO (09:13)
[2022-12-22] MEDS: Furosemide 40 MG TABLET PO (09:14)
[2022-12-22 15:51] VITALS: BP 124/62; PULSE 69; RESP 16; TEMP 35.7; O2SAT 96
[2022-12-22 19:16] LABS: MANUAL DIFF FLAG NO
[2022-12-22 19:24] LABS: Basophils Percent Auto 0.4 % (0-2); Eosinophils Absolute Auto 0.2 X10*3/uL (0.0-0.4); Eosinophils Percent Auto 3.9 % (0-4); Imm Gran Abs Auto 0.03 X10*3/uL (0.00-0.03); Imm Gran Pct Auto 0.5 % (0.0-0.4); Lymphocytes Absolute Auto 1.2 X10*3/uL (1.2-4.9); Mean Corpuscular HGB Conc 32.5 g/dl (31.0-35.0); Mean Corpuscular Hemoglobin 30.8 pg (27.0-33.0); Mean Corpuscular Volume 94.8 fL (80.0-98.0); Monocytes Absolute Auto 0.4 X10*3/uL (0.1-1.2); Monocytes Percent Auto 6.6 % (2-11); Neutrophils Absolute Auto 3.7 x10*3/uL (2.0-8.3); Neutrophils Percent Auto 66.6 % (45-73); Platelet Count 227 X10*3/uL (160-400); Red Blood Count 4.22 X10*6/uL (4.20-5.50); Red Cell Distribution Width 14.1 % (11.0-16.0); White Blood Count 5.6 X10*3/uL (4.8-10.8)
[2022-12-22 19:41] LABS: Alanine Aminotransferase 13 U/L (0-31); Albumin Level 3.7 g/dL (3.5-5.0); Alkaline Phosphatase 113 U/L (39-117); Anion Gap 14 (12-20); Aspartate Amino Transferase 23 U/L (5-31); Bilirubin Total 0.6 mg/dL (0.0-1.0); Blood Urea Nitrogen 35 mg/dL (9-16); Calcium 9.5 mg/dL (8.4-10.2); Carbon Dioxide 25 mmol/L (22-29); Chloride 104 mmol/L (96-108); Creatinine Clr Calc Pharmacy 28.8; Estimated Glomerular Filt Rate 40; Glucose Random 109 mg/dL (60-115); Magnesium 1.8 mg/dL (1.6-2.6); Potassium 4.1 mmol/L (3.3-5.1); Sodium 139 mmol/L (135-145); Total Protein 6.5 g/dL (6.5-8.0)
--- NOTE | 2022-12-22 20:12 | PC.NURSE ---
Patient was withdrawn and lethargic often today, but got up for meals and ate well. Was interactive with staff and her daughter episodically.
[2022-12-22] MEDS: Melatonin 3 MG TABLET 6 MG PO (20:45)
[2022-12-23 06:26] VITALS: BP 151/70; PULSE 62; RESP 18; TEMP 36.6; O2SAT 98
--- NOTE | 2022-12-23 06:27 | MHC.EDTECH ---
Pt refused getting out of bed to try to obtain a urine sample. Mihai Ladd made aware
[2022-12-23] MEDS: Furosemide 40 MG TABLET PO (10:11)
[2022-12-23] MEDS: Acetaminophen 325 MG TABLET 650 MG PO ×2 (10:12→20:42)
[2022-12-23] MEDS: Losartan Potassium 50 MG TABLET 100 MG PO (10:12)
[2022-12-23] MEDS: Omeprazole 20 MG CAPSULE.DR PO (10:13)
[2022-12-23] MEDS: Sertraline HCL 100 MG TABLET PO (10:13)
[2022-12-23] MEDS: Celecoxib 200 MG CAPSULE PO ×2 (10:13→20:41)
[2022-12-23] MEDS: OLANZapine 7.5 MG TABLET PO (10:13)
[2022-12-23] MEDS: atenoloL 100 MG TABLET PO (10:13)
[2022-12-23] MEDS: amLODIPine Besylate 10 MG TABLET PO (10:14)
--- NOTE | 2022-12-23 12:51 | MHC.EDTECH ---
patient wash and clean , bed change ,now relaxing watching TV.
[2022-12-23 14:11] LABS: Appearance Urine Clear; Color Urine Yellow; Glucose Urine UA Negative (Negative); Leukocyte Esterase Urine Negative (Negative); Nitrite Urine Negative (Negative); Specific Gravity - Urine 1.015 (1.005-1.025); Urine Blood Negative (Negative); Urine Ketones Negative (Negative); Urine Protein Negative (Neg-Trace)
[2022-12-23 14:30] VITALS: BP 120/68; PULSE 70; RESP 12; TEMP 36.4; O2SAT 96
[2022-12-23] MEDS: Loperamide HCl 2 MG CAPSULE PO (16:28)
--- NOTE | 2022-12-23 19:09 | MHC.EDTECH ---
pt ate 100% of her dinner is now with her daughter talking.
[2022-12-23] MEDS: Melatonin 3 MG TABLET 6 MG PO (20:41)
[2022-12-23 21:48] VITALS: BP 133/58; PULSE 64; RESP 17; TEMP 36.5; O2SAT 97
[2022-12-24 03:31] VITALS: RESP 14
--- NOTE | 2022-12-24 04:05 | PC.NURSE ---
Assumed care at 3:23am, pt oob without asking for help, pt assist to bedside commode, bed alarm did go off, luz care completed, pt assisted back in bed and bed alarm in place. Will continue to monitor.
[2022-12-24 05:27] VITALS: BP 115/65; PULSE 69; RESP 14; TEMP 36; O2SAT 95
--- NOTE | 2022-12-24 06:39 | PC.NURSE ---
Pt sleeping comfortable in bed no sign of distress at time, bed alarm
--- NOTE | 2022-12-24 08:38 | MHC.EDTECH ---
Patient refused vitals. Lisette Horner
--- NOTE | 2022-12-24 08:43 | MHC.CM.ED ---
Addendum entered by Simran Foster 12/24/22 11:57: Received return telephone call from Usha at [employer]. Genny is no longer working for their company. She started working for [employer]. Jeannette has taken over [employer]'s case. However, Jeannette is out of the office sick today. Original Note: Patient remains in ER overflow unit. [facility] still not active per [facility] [place]. Left another voicemail for Genny at [employer] requesting a call back for an update on patient's [employer] application. Continue to monitor for d/c needs.
[2022-12-24] MEDS: Acetaminophen 325 MG TABLET 650 MG PO ×2 (09:28→20:39)
[2022-12-24] MEDS: Sertraline HCL 100 MG TABLET PO (09:28)
[2022-12-24] MEDS: Losartan Potassium 50 MG TABLET 100 MG PO (09:29)
[2022-12-24] MEDS: amLODIPine Besylate 10 MG TABLET PO (09:29)
[2022-12-24] MEDS: Celecoxib 200 MG CAPSULE PO ×2 (09:29→20:40)
[2022-12-24] MEDS: atenoloL 100 MG TABLET PO (09:29)
[2022-12-24] MEDS: Furosemide 40 MG TABLET PO (09:29)
[2022-12-24] MEDS: OLANZapine 7.5 MG TABLET PO (09:29)
--- NOTE | 2022-12-24 11:47 | MHC.EDTECH ---
Emptied bed burris, replaced liner. Lisette Horner
[2022-12-24 16:24] VITALS: BP 116/66; PULSE 65; RESP 18; TEMP 36.4; O2SAT 96
--- NOTE | 2022-12-24 17:51 | PC.NURSE ---
Patient remains calm and cooperative throughout shift. Getting out of bed and using commode at bedside with standby assist. Patient forgetful at times, very easy to redirect.
[2022-12-24 22:00] VITALS: BP 120/68; PULSE 66; RESP 16; TEMP 36.6; O2SAT 96
[2022-12-25] MEDS: Omeprazole 20 MG CAPSULE.DR PO (05:25)
[2022-12-25 05:30] VITALS: BP 141/72; PULSE 57; RESP 18; TEMP 36.4; O2SAT 97
[2022-12-25] MEDS: Furosemide 40 MG TABLET PO (07:41)
[2022-12-25] MEDS: amLODIPine Besylate 10 MG TABLET PO (07:41)
[2022-12-25] MEDS: Acetaminophen 325 MG TABLET 650 MG PO ×2 (07:41→20:01)
[2022-12-25] MEDS: OLANZapine 7.5 MG TABLET PO (07:41)
[2022-12-25] MEDS: Sertraline HCL 100 MG TABLET PO (07:41)
[2022-12-25] MEDS: Losartan Potassium 50 MG TABLET 100 MG PO (07:42)
[2022-12-25] MEDS: Celecoxib 200 MG CAPSULE PO ×2 (07:42→20:02)
[2022-12-25] MEDS: atenoloL 100 MG TABLET PO (07:42)
--- NOTE | 2022-12-25 07:45 | MHC.EDTECH ---
pt sat up in bed and assisted with setting up breakfast. pt ate 100%
--- NOTE | 2022-12-25 08:16 | PC.NURSE ---
assumed care of patient, pt resting comfortably in bed, am meds given, breakfast tray delivered and set up for patient, VSS
--- NOTE | 2022-12-25 08:25 | MHC.CM.ED ---
Patient remains in ER overflow. [employer] is not active per [facility] [place]. Continue to monitor for d/c needs.
--- NOTE | 2022-12-25 09:14 | MHC.EDTECH ---
pt assisted up to the recliner chair and then the commode. bed cleaned and linens changed. pt assisted from commode back to recliner chair
--- NOTE | 2022-12-25 13:23 | PC.NURSE ---
patient in recliner, lunch tray delivered and set up for patient, visitors at bedside
--- NOTE | 2022-12-25 15:09 | PC.NURSE ---
Assumed care of patient, pt transferred from recliner to bed
--- NOTE | 2022-12-25 16:37 | MHC.CM.ED ---
Received telephone call from Teodora at [facility]. Teodora received telephone call from patient's daughter about placement. Teodora states patient's [facility] application will be approved once [facility] provides an accepting facility. T/W explained no facility has been willing to accept patient with [facility] Pending, especially since there were questions about patient's house being transferred to her daughter. T/W also explained 4 facilities in the area are closing, which has made STR or LTC placement difficult. Teodora requested referral be resent to [facility], [facility], [facility], [facility] and [place]. Referral resent per Teodora's request. Teodora requested MDS be completed and faxed to her. MDS completed by [place] and faxed to [phone] at her request. MDS also sent to [facility]. Continue to monitor for d/c needs.
--- NOTE | 2022-12-25 19:43 | MHC.CM.ED ---
CM received telephone call from daughter Teodora. Per Teodora, Teodora Fisher at [facility] is working on her mother's case. Teodora Fisher thinks that [facility] may have LTC beds and will reach out to them. Also thinks there may be beds at [facility]. Explained to Teodora Siu that CM has re-referred to [facility], [facility], [facility], [place] and [place] per [facility] request. CM referred to [facility] again, asking them to consider LTC bed for her mother. Explained in referral that MH is pending per [facility]. Teodora Siu expressed frustration with entire situation, the MH application and lack of LTC beds. Teodora is aware that CM is reviewing daily for bed offers and is waiting for confirmation of MH. CM following for discharge planning.
--- NOTE | 2022-12-25 22:30 | PC.NURSE ---
PATIENT ROUNDED ON BY RN RESTING COMFORTABLY IN BED, NO COMPLAINT OF PAIN. ALL MEDICATIONS PASSED WITHOUT ISSUE. PATIENT ABLE TO SWALLOW PILLS WHOLE WITH WATER
[2022-12-25 23:45] VITALS: BP 162/79; PULSE 64; RESP 16; O2SAT 94
[2022-12-26] MEDS: Omeprazole 20 MG CAPSULE.DR PO (05:36)
[2022-12-26 07:30] VITALS: BP 162/76; PULSE 70; RESP 16; TEMP 36.6; O2SAT 97
[2022-12-26] MEDS: Furosemide 40 MG TABLET PO (08:35)
[2022-12-26] MEDS: amLODIPine Besylate 10 MG TABLET PO (08:35)
[2022-12-26] MEDS: Losartan Potassium 50 MG TABLET 100 MG PO (08:35)
[2022-12-26] MEDS: Acetaminophen 325 MG TABLET 650 MG PO (08:35)
[2022-12-26] MEDS: OLANZapine 7.5 MG TABLET PO (08:35)
[2022-12-26] MEDS: Sertraline HCL 100 MG TABLET PO (08:35)
[2022-12-26] MEDS: Celecoxib 200 MG CAPSULE PO (08:36)
[2022-12-26] MEDS: atenoloL 100 MG TABLET PO (08:41)
--- NOTE | 2022-12-26 13:50 | MHC.CM.ED ---
Patient remains in ER overflow. [facility], [facility], [place], [facility], [facility] do not have any beds. Still waiting to hear from [facility]. [employer] is still not active in the Virtual [place]. Continue to monitor for d/c needs.
[2022-12-26 14:00] VITALS: BP 116/60; PULSE 65; RESP 20; TEMP 36.7
--- NOTE | 2022-12-26 14:51 | PC.NURSE ---
Pt had one large loose stool
--- NOTE | 2022-12-26 18:12 | PC.NURSE ---
Pt had a calm and cooperative day. Walked with RN x1, and alternated between chair and bed. Daughter came for a visit at dinner. Pt ate all meals.
[2022-12-26 22:00] VITALS: BP 106/67; PULSE 68; RESP 20; TEMP 36.8; O2SAT 92
--- NOTE | 2022-12-27 04:35 | PC.NURSE ---
Assumed care from previous RN at beginning of shift. Pt transferred from chair to bed with 2 assist. Pt a&o x1,confused, and denies any pain or discomfort. Pt refused to take KRISTINA bedtime medications from this RN. Pt resting quietly in bed.
[2022-12-27 06:00] VITALS: BP 150/73; PULSE 57; RESP 18; TEMP 36.1; O2SAT 94
[2022-12-27] MEDS: Omeprazole 20 MG CAPSULE.DR PO (07:44)
--- NOTE | 2022-12-27 08:12 | MHC.CM.ED ---
Patient remains in ER overflow. [employer] still not active per [facility] [place]. Referral re-broadcasted to all facilities within 50 miles in [facility]. Continue to monitor for d/c needs.
[2022-12-27] MEDS: Celecoxib 200 MG CAPSULE PO ×2 (09:03→20:22)
[2022-12-27] MEDS: Sertraline HCL 100 MG TABLET PO (09:03)
[2022-12-27] MEDS: atenoloL 100 MG TABLET PO (09:03)
[2022-12-27] MEDS: Furosemide 40 MG TABLET PO (09:03)
[2022-12-27] MEDS: amLODIPine Besylate 10 MG TABLET PO (09:04)
[2022-12-27] MEDS: Acetaminophen 325 MG TABLET 650 MG PO ×2 (09:04→20:21)
[2022-12-27] MEDS: Losartan Potassium 50 MG TABLET 100 MG PO (09:04)
[2022-12-27] MEDS: OLANZapine 7.5 MG TABLET PO (09:04)
[2022-12-27 18:32] VITALS: BP 161/88; PULSE 73; RESP 16; TEMP 36.9; O2SAT 99
--- NOTE | 2022-12-27 18:36 | PC.NURSE ---
Pt sleeping in bed with no acute distress. No pain reported. 1 assist to commode, continent of urine this shift. Pt in no acute distress. Safety maintained throughout. Will continue to monitor.
[2022-12-27] MEDS: Melatonin 3 MG TABLET 6 MG PO (20:21)
[2022-12-28 00:05] VITALS: BP 111/61; PULSE 56; RESP 20; TEMP 36.2; O2SAT 96
[2022-12-28 04:19] VITALS: BP 127/68; PULSE 60; RESP 20; TEMP 36.3; O2SAT 96
[2022-12-28] MEDS: Omeprazole 20 MG CAPSULE.DR PO (05:40)
[2022-12-28 07:40] VITALS: BP 148/68; PULSE 56; RESP 17; O2SAT 97
[2022-12-28] MEDS: amLODIPine Besylate 10 MG TABLET PO (07:42)
[2022-12-28] MEDS: OLANZapine 7.5 MG TABLET PO (07:42)
[2022-12-28] MEDS: Celecoxib 200 MG CAPSULE PO ×2 (07:42→20:42)
[2022-12-28] MEDS: Sertraline HCL 100 MG TABLET PO (07:42)
[2022-12-28] MEDS: Losartan Potassium 50 MG TABLET 100 MG PO (07:43)
[2022-12-28] MEDS: Acetaminophen 325 MG TABLET 650 MG PO ×2 (07:44→20:42)
[2022-12-28] MEDS: Furosemide 40 MG TABLET PO (07:44)
--- NOTE | 2022-12-28 07:49 | PC.NURSE ---
patient alert, confused. verbally redirectable. took morning medication with water, no signs of difficulty noted. bed alarm on for safety. will CTM
[2022-12-28 17:57] VITALS: BP 132/72; PULSE 71; RESP 16; TEMP 36.4; O2SAT 99
[2022-12-28 23:29] VITALS: BP 142/87; PULSE 65; RESP 18; TEMP 36.9; O2SAT 93
[2022-12-29] MEDS: Omeprazole 20 MG CAPSULE.DR PO (06:05)
[2022-12-29 06:32] VITALS: BP 150/67; PULSE 55; RESP 14; TEMP 37.1; O2SAT 96
[2022-12-29 08:45] VITALS: BP 132/88; PULSE 64; RESP 16; O2SAT 96
[2022-12-29] MEDS: Sertraline HCL 100 MG TABLET PO (08:48)
[2022-12-29] MEDS: OLANZapine 7.5 MG TABLET PO (08:48)
[2022-12-29] MEDS: amLODIPine Besylate 10 MG TABLET PO (08:48)
[2022-12-29] MEDS: atenoloL 100 MG TABLET PO (08:49)
[2022-12-29] MEDS: Losartan Potassium 50 MG TABLET 100 MG PO (08:49)
[2022-12-29] MEDS: Furosemide 40 MG TABLET PO (08:49)
[2022-12-29] MEDS: Celecoxib 200 MG CAPSULE PO ×2 (08:49→20:54)
--- NOTE | 2022-12-29 12:21 | MHC.EDTECH ---
Assisted patient with using the commode and personal hygiene. Changed patients gown and linen. Lisette Horner
--- NOTE | 2022-12-29 12:42 | PC.NURSE ---
PT ALERT, PLEASANTLY CONFUSED. SHE DENIED PAIN, VSS. MEDS GIVEN DOCUMENTED. INCONTINENT CARE DONE BY TECH. PT RESTING QUIETLY. WILL CONTINUE TO OBSERVE.
[2022-12-29] MEDS: Acetaminophen 325 MG TABLET 650 MG PO (20:54)
[2022-12-29 23:59] VITALS: BP 105/60; PULSE 65; RESP 16; TEMP 36.2; O2SAT 96
--- NOTE | 2022-12-30 00:16 | PC.NURSE ---
Patient pleasantly confused. Assisted to commode, able to make needs known. Denies pain, VSS. Medication administered as ordered. Patient resting quietly, will continue to monitor.
[2022-12-30] MEDS: Omeprazole 20 MG CAPSULE.DR PO (05:35)
[2022-12-30 07:13] LABS: Glucose, Whole Blood 90 mg/dL (60-115)
[2022-12-30 07:56] VITALS: BP 123/72; PULSE 69; RESP 16; TEMP 36.4; O2SAT 98
[2022-12-30] MEDS: Acetaminophen 325 MG TABLET 650 MG PO ×2 (08:02→20:27)
[2022-12-30] MEDS: Furosemide 40 MG TABLET PO (08:03)
[2022-12-30] MEDS: Sertraline HCL 100 MG TABLET PO (08:03)
[2022-12-30] MEDS: Celecoxib 200 MG CAPSULE PO ×2 (08:03→20:27)
[2022-12-30] MEDS: atenoloL 100 MG TABLET PO (08:03)
[2022-12-30] MEDS: OLANZapine 7.5 MG TABLET PO (08:03)
[2022-12-30] MEDS: Losartan Potassium 50 MG TABLET 100 MG PO (08:03)
[2022-12-30] MEDS: amLODIPine Besylate 10 MG TABLET PO (08:03)
--- NOTE | 2022-12-30 11:00 | PC.NURSE ---
PT ASSISTED TO BEDSIDE COMMODE, LG BM. BACK TO BED. DENIES PAIN.
[2022-12-30 13:26] LABS: Glucose, Whole Blood 131 mg/dL (60-115)
[2022-12-30 14:51] VITALS: BP 99/54; PULSE 51; RESP 16; TEMP 36.6; O2SAT 98
--- NOTE | 2022-12-30 15:59 | PC.NURSE ---
1245: PT ASSISTED TO COMMODE THEN TO RECLINER AT BEDSIDE. SNACK GIVEN.
[2022-12-30 18:22] LABS: Glucose, Whole Blood 108 mg/dL (60-115)
--- NOTE | 2022-12-30 18:33 | PC.NURSE ---
pt assisted to bedside commode. eating dinner at this time.
[2022-12-30] MEDS: Melatonin 3 MG TABLET 6 MG PO (20:28)
[2022-12-30 21:08] LABS: Glucose, Whole Blood 119 mg/dL (60-115)
--- NOTE | 2022-12-30 22:40 | MHC.EDTECH ---
Help patient multiple time to the commode. Patient has been getting out of bed frequently during the afternoon.
[2022-12-31] MEDS: Omeprazole 20 MG CAPSULE.DR PO (05:52)
[2022-12-31 05:54] VITALS: BP 120/62; PULSE 88; RESP 20; O2SAT 100
--- NOTE | 2022-12-31 10:01 | PC.NURSE ---
Medications held at this time d/t to being asleep. Will administer when awake.
[2022-12-31] MEDS: Acetaminophen 325 MG TABLET 650 MG PO ×2 (10:57→20:38)
[2022-12-31] MEDS: Celecoxib 200 MG CAPSULE PO ×2 (10:57→20:38)
[2022-12-31] MEDS: Losartan Potassium 50 MG TABLET 100 MG PO (10:58)
[2022-12-31] MEDS: Furosemide 40 MG TABLET PO (10:58)
[2022-12-31] MEDS: amLODIPine Besylate 10 MG TABLET PO (10:58)
[2022-12-31] MEDS: OLANZapine 7.5 MG TABLET PO (10:59)
[2022-12-31] MEDS: atenoloL 100 MG TABLET PO (10:59)
[2022-12-31] MEDS: Sertraline HCL 100 MG TABLET PO (10:59)
[2022-12-31 13:43] VITALS: BP 151/70; PULSE 61; RESP 16; O2SAT 96
--- NOTE | 2022-12-31 14:37 | MHC.CM.ED ---
Patient remains in ER overflow. [facility] still not active per [facility] [place]. No bed offers at this time. Continue to monitor for d/c needs.
--- NOTE | 2022-12-31 14:59 | MHC.EDTECH ---
Pt was assisted to bedside commode with limited assistance of 1. Pt is confused but can be directable. Pt was given a partial bed bath with extensive assistance of 2.
--- NOTE | 2022-12-31 15:56 | MHC.EDTECH ---
this pct assumed care of pt at 1500 ,pt up to bed side commode ,void then back to bed ,and is now sleeping .
--- NOTE | 2022-12-31 18:54 | MHC.EDTECH ---
pt up to bed side commode ,void ,sponge bath given ,ate dinner 100 % drank 240 ml fluids .
[2022-12-31] MEDS: Melatonin 3 MG TABLET 6 MG PO (20:38)
[2022-12-31 21:01] VITALS: BP 127/76; PULSE 72; RESP 16; TEMP 36.8; O2SAT 97
--- NOTE | 2022-12-31 21:17 | MHC.EDTECH ---
pt vitals sign taken ,pt up to bed side commode ,had extra lg bowel movement ,care given ,back in bed .
--- NOTE | 2023-01-01 02:16 | MHC.EDTECH ---
0200 rounding done ,pt sleeping .
[2023-01-01 06:00] VITALS: BP 135/69; PULSE 58; RESP 16; TEMP 36.2; O2SAT 98
--- NOTE | 2023-01-01 06:00 | MHC.EDTECH ---
0600 rounding done ,vitals sign taken ,prt slept all night .
[2023-01-01] MEDS: OLANZapine 7.5 MG TABLET PO (09:59)
[2023-01-01] MEDS: Celecoxib 200 MG CAPSULE PO ×2 (09:59→21:47)
[2023-01-01] MEDS: Acetaminophen 325 MG TABLET 650 MG PO ×2 (09:59→21:47)
[2023-01-01] MEDS: atenoloL 100 MG TABLET PO (09:59)
[2023-01-01] MEDS: Sertraline HCL 100 MG TABLET PO (09:59)
[2023-01-01] MEDS: Losartan Potassium 50 MG TABLET 100 MG PO (10:00)
[2023-01-01] MEDS: Furosemide 40 MG TABLET PO (10:00)
[2023-01-01] MEDS: amLODIPine Besylate 10 MG TABLET PO (10:00)
[2023-01-01 11:37] LABS: Appearance Urine Clear; Color Urine Yellow; Glucose Urine UA Negative (Negative); Leukocyte Esterase Urine Trace (Negative); Nitrite Urine Negative (Negative); PH 5.5 (5.0-9.0); UMIC TRIGGER UACC YES; Urine Blood Negative (Negative); Urine Ketones Negative (Negative); Urine Protein Negative (Neg-Trace)
[2023-01-01 11:40] LABS: Bacteria Urine 1+ (None Seen); Hyaline Casts Urine 0-2 /LPF (0-2); WBC Urine 0-5 /HPF (0-5)
[2023-01-01 15:02] VITALS: BP 115/68; PULSE 69; RESP 16; TEMP 36.4; O2SAT 99
--- NOTE | 2023-01-01 15:12 | MHC.CM.ED ---
Patient remains in ER overflow. [employer] not active in Virtual [place] at this time. [facility] requested contact info for [facility]. Continue to monitor for d/c needs.
--- NOTE | 2023-01-01 15:16 | ECG_ITS ---
Test Reason : WEAKNESS Blood Pressure : / mmHG Vent. Rate : 055 BPM Atrial Rate : 000 BPM P-R Int : 000 ms QRS Dur : 126 ms QT Int : 418 ms P-R-T Axes : 000 -55 074 degrees QTc Int : 399 ms Atrial fibrillation with slow ventricular response Left axis deviation Left bundle branch block Abnormal ECG When compared with ECG of 01-DEC-2022 19:44, No significant change was found Referred By: Shagufta Coronado Electronically Signed By:Panda Hoyos
[2023-01-01 15:32] LABS: MANUAL DIFF FLAG NO
[2023-01-01 15:33] LABS: Basophils Percent Auto 0.3 % (0-2); Eosinophils Absolute Auto 0.2 X10*3/uL (0.0-0.4); Hematocrit 42.5 % (37.0-47.0); Hemoglobin 13.8 g/dl (12.0-16.0); Imm Gran Abs Auto 0.02 X10*3/uL (0.00-0.03); Imm Gran Pct Auto 0.3 % (0.0-0.4); Lymphocytes Absolute Auto 2.7 X10*3/uL (1.2-4.9); Lymphocytes Percent Auto 37.3 % (20-40); Mean Corpuscular HGB Conc 32.5 g/dl (31.0-35.0); Mean Corpuscular Hemoglobin 30.1 pg (27.0-33.0); Mean Corpuscular Volume 92.8 fL (80.0-98.0); Mean Platelet Volume 8.6 fL (9.4-12.3); Monocytes Absolute Auto 0.4 X10*3/uL (0.1-1.2); Neutrophils Percent Auto 54.1 % (45-73); Platelet Count 216 X10*3/uL (160-400); Red Blood Count 4.58 X10*6/uL (4.20-5.50); Red Cell Distribution Width 14.1 % (11.0-16.0); White Blood Count 7.4 X10*3/uL (4.8-10.8)
[2023-01-01 15:57] LABS: Troponin-I High Sensitivity 6.7 ng/L (<3.5-17.0)
[2023-01-01] MEDS: 0.9 % Sodium Chloride 1,000 ML 999 ML IV (16:03)
[2023-01-01 16:04] LABS: Alanine Aminotransferase 12 U/L (0-31); Albumin Level 3.7 g/dL (3.5-5.0); Alkaline Phosphatase 113 U/L (39-117); Anion Gap 15 (12-20); Aspartate Amino Transferase 23 U/L (5-31); Bilirubin Direct < 0.2 mg/dL (0.0-0.5); Bilirubin Total 0.8 mg/dL (0.0-1.0); Blood Urea Nitrogen 37 mg/dL (9-16); Carbon Dioxide 28 mmol/L (22-29); Chloride 104 mmol/L (96-108); Creatinine Clr Calc Pharmacy 29.2; Estimated Glomerular Filt Rate 40; Glucose Random 151 mg/dL (60-115); Potassium 3.9 mmol/L (3.3-5.1); Sodium 143 mmol/L (135-145); Total Protein 6.4 g/dL (6.5-8.0)
--- NOTE | 2023-01-01 16:05 | PC.NURSE ---
Addendum entered by Kaykay Hu RN 01/01/23 19:02: Pt was assisted to bedside commode with barrel drum cutter. On commode pt had a large liquid BM and became unresponsive for a short time. When coming to pts eyes were open staring straight ahead, fixated and she was mumbling. Pt was moved to her bed, vitals obtained with initial BP of 87/54 which increased to 110s systolically shortly after. IV line started and NS fluids hung, EKG and labs obtained, pt placed on director of cardiac cath lab. DONNA Eagle notified of incident and was requested to come see pt. EKG stated pt was in a. fib and a short time later pt went into a. flutter and back to a. fib. DONNA Eagle notified, no further intervention requested by her at this time. will CTM. Original Note: Pt was assisted to bedside commode with barrel drum cutter. On commode pt had a large liquid BM and became unresponsive for a short time. When coming to pts eyes were open staring straight ahead, fixated and she was mumbling. Pt was moved to her bed, vitals obtained with initial BP of 87/54. IV line started and NS fluids hung, EKG and labs obtained, pt placed on director of cardiac cath lab. DONNA Eagle notified of incident and was requested to come see pt. EKG stated pt was in a. fib and a short time later pt went into a. flutter and back to a. fib. DONNA Eagle notified, no further intervention requested by her at this time. will CTM.
--- NOTE | 2023-01-01 18:45 | PC.NURSE ---
Pt resting comfortably in bed, remaining on heart monitor, denying dinner at this time, VSS.
--- NOTE | 2023-01-01 22:10 | PC.NURSE ---
Pt alert and not oriented. Sitting upright at the bedside in no apparent distress. Noted to be eating dinner with no difficulty. No N/V noted. Able to ambulate to the bathroom with one assist. Medicated as ordered and tolerated well. Care is ongoing.
[2023-01-01 23:28] VITALS: RESP 16
[2023-01-02 05:47] VITALS: BP 127/61; PULSE 84; RESP 17; TEMP 36.7; O2SAT 95
[2023-01-02] MEDS: Omeprazole 20 MG CAPSULE.DR PO (06:07)
[2023-01-02] MEDS: Celecoxib 200 MG CAPSULE PO ×2 (09:04→21:52)
[2023-01-02] MEDS: Acetaminophen 325 MG TABLET 650 MG PO ×2 (09:04→21:51)
[2023-01-02] MEDS: Furosemide 40 MG TABLET PO (09:04)
[2023-01-02] MEDS: amLODIPine Besylate 10 MG TABLET PO (09:04)
[2023-01-02] MEDS: atenoloL 100 MG TABLET PO (09:04)
[2023-01-02] MEDS: OLANZapine 7.5 MG TABLET PO (09:04)
[2023-01-02] MEDS: Sertraline HCL 100 MG TABLET PO (09:05)
[2023-01-02] MEDS: Losartan Potassium 50 MG TABLET 100 MG PO (09:05)
--- NOTE | 2023-01-02 10:32 | MHC.CM.ED ---
Patient remains in ER overflow. [facility] is still not active in [facility] [place]. [employer] recommended referrals be sent to [place] for [facility], [facility] and [facility]. These referrals resent at their request. Continue to monitor for d/c needs.
[2023-01-02 10:33] VITALS: BP 96/56; PULSE 79; RESP 16; TEMP 36.3; O2SAT 95
--- NOTE | 2023-01-02 12:32 | MHC.EDTECH ---
Assisted patient with breakfast, commode use and personal hygiene. Lisette Horner
[2023-01-02 14:36] VITALS: BP 123/62; PULSE 65; RESP 16; O2SAT 96
--- NOTE | 2023-01-02 16:00 | MHC.EDTECH ---
this pct assumed care of pt at 1500 ,pt had an ice cream for snack ,pt was assisted unto bed side commode ,voided large amount of urine and lg loose bowel movement ,luz care given .
[2023-01-02 16:17] VITALS: BP 95/61; PULSE 68; RESP 16; TEMP 36.6; O2SAT 98
--- NOTE | 2023-01-02 17:28 | MHC.EDTECH ---
pt had another ice cream for snack .
--- NOTE | 2023-01-02 18:46 | MHC.EDTECH ---
pt ate 100 % of dinner ,drank 240 ml jesusita shalini .
[2023-01-02 20:59] LABS: Glucose, Whole Blood 103 mg/dL (60-115)
[2023-01-02 22:41] VITALS: BP 134/70; PULSE 73; RESP 16; TEMP 36.8; O2SAT 95
--- NOTE | 2023-01-03 02:27 | PC.NURSE ---
Patient without any respiratory distress, sleeping comfortably in bed at this time. Patient is pleasantly confused but easily redirected. Care is ongoing
[2023-01-03] MEDS: Omeprazole 20 MG CAPSULE.DR PO (06:46)
[2023-01-03 07:16] VITALS: BP 129/74; PULSE 71; RESP 18; TEMP 36.9
--- NOTE | 2023-01-03 08:30 | MHC.CM.PN ---
PT AWAITING LTC PLACEMENT REFERRAL BROADCASTED FIVE FACILITIES FOLLOWING: [facility], [facility], [facility], AND [facility] HOWEVER, [facility] IS THE ONLY SNF THAT HAS RESPONDED IN RECENT DAYS UPDATES WERE SENT AWAITING RESPONSE
[2023-01-03 08:55] VITALS: BP 153/83; PULSE 71; RESP 18; TEMP 36.2
[2023-01-03] MEDS: Acetaminophen 325 MG TABLET 650 MG PO ×2 (09:00→20:30)
[2023-01-03] MEDS: Celecoxib 200 MG CAPSULE PO ×2 (09:02→20:29)
[2023-01-03] MEDS: OLANZapine 7.5 MG TABLET PO (09:02)
[2023-01-03] MEDS: Losartan Potassium 50 MG TABLET 100 MG PO (09:02)
[2023-01-03] MEDS: Sertraline HCL 100 MG TABLET PO (09:02)
[2023-01-03] MEDS: amLODIPine Besylate 10 MG TABLET PO (09:03)
[2023-01-03] MEDS: atenoloL 100 MG TABLET PO (09:03)
[2023-01-03] MEDS: Furosemide 40 MG TABLET PO (09:03)
--- NOTE | 2023-01-03 19:56 | PC.NURSE ---
Pt had a good day. No complaints voiced or distress noted by nursing staff. Nursing staff assisted pt with ADLs
[2023-01-03] MEDS: Loperamide HCl 2 MG CAPSULE PO (20:29)
[2023-01-03] MEDS: Melatonin 3 MG TABLET 6 MG PO (20:29)
[2023-01-03 23:24] VITALS: BP 120/66; PULSE 55; RESP 16; TEMP 36.3; O2SAT 96
--- NOTE | 2023-01-04 01:39 | PC.NURSE ---
Assumed care of pt. at 2300. Pt. sleeping at that time and remains asleep, respirations even and unlabored, no distress noted. Will continue to monitor.
[2023-01-04] MEDS: Omeprazole 20 MG CAPSULE.DR PO (06:31)
[2023-01-04 07:36] LABS: Glucose, Whole Blood 101 mg/dL (60-115)
[2023-01-04 08:35] VITALS: BP 150/89; PULSE 69; RESP 12; TEMP 36.5; O2SAT 98
--- NOTE | 2023-01-04 08:37 | MHC.EDTECH ---
While doing vitals on Pt, this tech asked Pt if she was hungry and wanted to sit up to eat, and Pt declined.
--- NOTE | 2023-01-04 08:50 | PC.NURSE ---
Assumed care at 0645. Patient resting comfortably in bed. VSS. non labored breathing. No distress noted. VSS.
[2023-01-04] MEDS: amLODIPine Besylate 10 MG TABLET PO (09:17)
[2023-01-04] MEDS: Acetaminophen 325 MG TABLET 650 MG PO ×2 (09:17→21:43)
[2023-01-04] MEDS: Celecoxib 200 MG CAPSULE PO ×2 (09:17→21:43)
[2023-01-04] MEDS: Sertraline HCL 100 MG TABLET PO (09:17)
[2023-01-04] MEDS: Furosemide 40 MG TABLET PO (09:17)
[2023-01-04] MEDS: atenoloL 100 MG TABLET PO (09:17)
[2023-01-04] MEDS: Losartan Potassium 50 MG TABLET 100 MG PO (09:17)
[2023-01-04] MEDS: OLANZapine 7.5 MG TABLET PO (09:18)
--- NOTE | 2023-01-04 12:12 | PC.NURSE ---
Patient sleeping/ drowsy throughout the day. Refused breakfast and PO medications this am. Arousable to patient's name and tactile stimulus. VSS. No distress noted. Sleeping comfortably in bed.
[2023-01-04 13:04] LABS: Glucose, Whole Blood 93 mg/dL (60-115)
--- NOTE | 2023-01-04 13:11 | MHC.EDTECH ---
Pt with visitors at bedside (sister), Pt awake and boosted in bed with help of RN to sit up for lunch. Pt ate 100% of lunch.
--- NOTE | 2023-01-04 14:53 | MHC.CM.ED ---
Review of referrals notes no bed offers: [facility] not available per gateway. Communication updated with facilities that showed an interest. ED CM to follow for placement.
[2023-01-04 16:21] VITALS: BP 100/52; PULSE 59; RESP 18; TEMP 36.4; O2SAT 96
--- NOTE | 2023-01-04 17:09 | PC.NURSE ---
Assumed care at 1500, patient sleeping at present , VSS, confused, no distress noted .
[2023-01-04 21:46] VITALS: BP 107/57; PULSE 62; RESP 16; TEMP 36.8; O2SAT 94
--- NOTE | 2023-01-05 02:58 | PC.NURSE ---
Pt alert, very confused. She does not use call light appropriately and can can be hard to follow direction. She uses the [facility] w/ 1 assist. Pt currently in bed sleeping. Safety measures maintained.
[2023-01-05 05:45] VITALS: BP 123/58; PULSE 58; RESP 16; TEMP 36.8; O2SAT 96
--- NOTE | 2023-01-05 05:48 | MHC.EDTECH ---
0600 rounding done ,vitals sign taken ,pt sleeping and dry ,fresh water given .
[2023-01-05] MEDS: Omeprazole 20 MG CAPSULE.DR PO (05:52)
[2023-01-05] MEDS: Acetaminophen 325 MG TABLET 650 MG PO ×2 (09:02→20:14)
[2023-01-05] MEDS: Losartan Potassium 50 MG TABLET 100 MG PO (09:03)
[2023-01-05] MEDS: Furosemide 40 MG TABLET PO (09:03)
[2023-01-05] MEDS: Sertraline HCL 100 MG TABLET PO (09:03)
[2023-01-05] MEDS: amLODIPine Besylate 10 MG TABLET PO (09:03)
[2023-01-05] MEDS: atenoloL 100 MG TABLET PO (09:04)
[2023-01-05] MEDS: Celecoxib 200 MG CAPSULE PO ×2 (09:04→20:14)
[2023-01-05] MEDS: OLANZapine 7.5 MG TABLET PO (09:04)
--- NOTE | 2023-01-05 12:09 | PC.NURSE ---
patient alert, confused. verbally redirectable. stand pivots to bedside commode. call ugal[place] within reach. bed alarm in place for safety
[2023-01-05 15:02] VITALS: BP 124/61; PULSE 81; RESP 17; TEMP 36.6; O2SAT 95
--- NOTE | 2023-01-05 16:11 | MHC.EDTECH ---
this pct assumed care of pt at 1500 ,pt was sleeping up to bed side commode ,care given then back to bed,refused snack .
--- NOTE | 2023-01-05 19:14 | MHC.EDTECH ---
pt ate 50% of dinner ,drank 240 ml fluids ,after dinner pt void on bedside commode ,sponge bath given ,pt back in bed napping .
--- NOTE | 2023-01-05 19:30 | MHC.EDTECH ---
pt up to bedside commode ,void lg amount of urine ,care given ,back to bed .
[2023-01-05 20:37] VITALS: BP 121/67; PULSE 85; RESP 16; TEMP 36.5; O2SAT 97
--- NOTE | 2023-01-05 20:38 | MHC.EDTECH ---
PT VITALS SIGN TAKEN ,FRESH WATER GIVEN ,PT TIRED TRYING TO SLEEP .
--- NOTE | 2023-01-06 00:03 | MHC.EDTECH ---
pt up did not need to use bathroom ,pt having ice cream for snack
--- NOTE | 2023-01-06 02:26 | MHC.EDTECH ---
pt got up from bed with help ,offer bathroom ,did not need to void was re directed back to bed .
--- NOTE | 2023-01-06 04:40 | PC.NURSE ---
ASSUMED CARE OF PT AT 2300. PT IS PLEASANTLY CONFUSED. WILL TRY TO GET OOB BY SELF BUT BED ALARM ON. WANTED A SODA AND WAS ASSISTED BACK TO BED AND GIVEN JUAN JEANNETTE. STEADY ON FEET WITH 1 ASSIST. SETTLED PT FOR SLEEP. NO ACUTE DISTRESS. DENIES PAIN.
[2023-01-06] MEDS: Omeprazole 20 MG CAPSULE.DR PO (05:41)
[2023-01-06 05:47] VITALS: BP 136/66; PULSE 68; RESP 12; TEMP 36.4; O2SAT 95
[2023-01-06] MEDS: Losartan Potassium 50 MG TABLET 100 MG PO (09:11)
[2023-01-06] MEDS: atenoloL 100 MG TABLET PO (09:11)
[2023-01-06] MEDS: OLANZapine 7.5 MG TABLET PO (09:11)
[2023-01-06] MEDS: Acetaminophen 325 MG TABLET 650 MG PO ×2 (09:11→20:01)
[2023-01-06] MEDS: Celecoxib 200 MG CAPSULE PO ×2 (09:12→20:02)
[2023-01-06] MEDS: amLODIPine Besylate 10 MG TABLET PO (09:12)
[2023-01-06] MEDS: Furosemide 40 MG TABLET PO (09:12)
[2023-01-06] MEDS: Sertraline HCL 100 MG TABLET PO (09:13)
[2023-01-06 14:33] VITALS: BP 129/65; PULSE 86; RESP 14; O2SAT 96
--- NOTE | 2023-01-06 17:44 | PC.NURSE ---
pt remains very confused and attempting multiple times throughout shift to get out of bed, she is redirectable but due to dementia she cannot remember to stay in bed or chair. We moved her bed to Bed 2 so sitter can watch her and bed 3.
[2023-01-06 20:48] VITALS: RESP 17
[2023-01-07 02:00] VITALS: BP 134/69; PULSE 97; RESP 17; TEMP 36.5; O2SAT 99
[2023-01-07 05:24] VITALS: BP 134/81; PULSE 69; RESP 17; TEMP 37.2; O2SAT 95
[2023-01-07] MEDS: Omeprazole 20 MG CAPSULE.DR PO (05:58)
--- NOTE | 2023-01-07 09:00 | PC.NURSE ---
Patient alert, pleasantly confused and sleepy. Took medications with no problems. Patient with no complaints of pain. Vitals stable. Will continue to monitor.
[2023-01-07 09:20] VITALS: BP 155/86; PULSE 86; RESP 16; TEMP 36.4; O2SAT 95
[2023-01-07] MEDS: OLANZapine 7.5 MG TABLET PO (09:29)
[2023-01-07] MEDS: atenoloL 100 MG TABLET PO (09:29)
[2023-01-07] MEDS: Losartan Potassium 50 MG TABLET 100 MG PO (09:29)
[2023-01-07] MEDS: Celecoxib 200 MG CAPSULE PO ×2 (09:30→19:44)
[2023-01-07] MEDS: Sertraline HCL 100 MG TABLET PO (09:30)
[2023-01-07] MEDS: Acetaminophen 325 MG TABLET 650 MG PO ×2 (09:30→19:45)
[2023-01-07] MEDS: Furosemide 40 MG TABLET PO (09:31)
[2023-01-07] MEDS: amLODIPine Besylate 10 MG TABLET PO (09:31)
--- NOTE | 2023-01-07 12:46 | PC.NURSE ---
PT ALERT, PLEASANTLY CONFUSED, DENIES PAIN, VSS. REFUSED BREAKFAST, ASSISTED TO COMMODE, RESTING QUIETLY IN BED, NO APPARENT DISTRESS. WILL CONTINUE TO OBSERVE.
[2023-01-07 16:02] VITALS: BP 122/77; PULSE 68; RESP 14; TEMP 36.5; O2SAT 92
--- NOTE | 2023-01-07 17:44 | PC.NURSE ---
Patient with family at bedside. Patient awake and interacting with family.
--- NOTE | 2023-01-07 19:33 | MHC.EDTECH ---
pt toileted ,cleaned and sleeping
--- NOTE | 2023-01-07 21:16 | MHC.CM.ED ---
is still not active. Pt needs LTC pending application approval. No facilities offering bed at this time. CM continues to follow for discharge planning.
[2023-01-08 02:57] VITALS: BP 121/64; PULSE 60; RESP 14; TEMP 36.5; O2SAT 98
[2023-01-08] MEDS: Omeprazole 20 MG CAPSULE.DR PO (05:06)
[2023-01-08 07:50] VITALS: BP 137/79; PULSE 66; RESP 16; O2SAT 97
[2023-01-08] MEDS: Losartan Potassium 50 MG TABLET 100 MG PO (07:52)
[2023-01-08] MEDS: Celecoxib 200 MG CAPSULE PO ×2 (07:52→21:14)
[2023-01-08] MEDS: atenoloL 100 MG TABLET PO (07:52)
[2023-01-08] MEDS: Furosemide 40 MG TABLET PO (07:52)
[2023-01-08] MEDS: amLODIPine Besylate 10 MG TABLET PO (07:52)
[2023-01-08] MEDS: Acetaminophen 325 MG TABLET 650 MG PO ×2 (07:53→21:13)
[2023-01-08] MEDS: Sertraline HCL 100 MG TABLET PO (07:53)
[2023-01-08] MEDS: OLANZapine 7.5 MG TABLET PO (07:53)
--- NOTE | 2023-01-08 08:49 | MHC.CM.ED ---
Patient remains in ER overflow unit. [employer] is still not active per [facility] [place]. Continue to monitor for d/c needs.
--- NOTE | 2023-01-08 10:36 | PC.NURSE ---
ASSUMED CARE OF THIS PT AT 0700. ALERT, PLEASANTLY CONFUSED. SHE DENIES PAIN. PT HARD TO WAKE UP FOR BREAKFAST AND MEDS. SHE AT 25% OF BREAKFAST WITH QUEUING FROM STAFF. MEDS GIVEN DOCUMENTED. PT SLEEPING AT THIS TIME. WILL CONTINUE TO OBSERVE.
--- NOTE | 2023-01-08 12:15 | MHC.EDTECH ---
Pt woken up and assisted to shower with help of this tech. Pt was cleaned up, declined to have her hair washed stating It takes too long and was just done a few days ago. Pt was dried off completely, noticed that under her breasts were red (KEENAN Avila notified) and per RN, powder applied under both breasts. Pt now in recliner eating muffin/pudding and drinking gingerale. Bed cleaned and linen changed by RN.
--- NOTE | 2023-01-08 14:21 | MHC.EDTECH ---
Pt stated she needed to use the bathroom and Pt was assisted from recliner to commode where she had a bowel movement. Pt cleaned up and back into bed with a boost given with RN.
--- NOTE | 2023-01-08 21:23 | PC.NURSE ---
Patient is pleasantly confused but easily redirectable on shift. Took all scheduled meds, able to make needs known. Laying quietly in bed sleeping with symmetrical rise and fall of chest noted. No distress at this time. Fall precautions in place. Care is ongoing.
[2023-01-08 22:00] VITALS: BP 135/68; PULSE 66; RESP 16; TEMP 36.5; O2SAT 96
--- NOTE | 2023-01-09 05:49 | PC.NURSE ---
Patient refused her morning omeprazole stating get out of here I'm sleeping .
[2023-01-09 06:08] VITALS: BP 101/63; PULSE 74; RESP 19; TEMP 36.4; O2SAT 99
--- NOTE | 2023-01-09 06:09 | MHC.EDTECH ---
Pt 1x assisted with repositioning
[2023-01-09 06:43] LABS: Glucose, Whole Blood 92 mg/dL (60-115)
--- NOTE | 2023-01-09 06:49 | PC.NURSE ---
Patient POC 92, asymptomatic. MD notified, no new orders. [place] juice and betzaida cracker giving and tolerated, breakfast tray up.
[2023-01-09 08:44] VITALS: BP 159/73; PULSE 68; RESP 16; TEMP 36.6; O2SAT 97
[2023-01-09] MEDS: Celecoxib 200 MG CAPSULE PO ×2 (09:08→20:18)
[2023-01-09] MEDS: Losartan Potassium 50 MG TABLET 100 MG PO (09:08)
[2023-01-09] MEDS: OLANZapine 7.5 MG TABLET PO (09:08)
[2023-01-09] MEDS: Acetaminophen 325 MG TABLET 650 MG PO ×2 (09:08→20:18)
[2023-01-09] MEDS: amLODIPine Besylate 10 MG TABLET PO (09:08)
--- NOTE | 2023-01-09 09:08 | MHC.CM.ED ---
Patient remains in ER overflow. [facility] not active per [facility] [place]. [facility] is still reviewing to see if they can accept patient. Continue to monitor for d/c needs.
[2023-01-09] MEDS: Sertraline HCL 100 MG TABLET PO (09:09)
[2023-01-09] MEDS: Furosemide 40 MG TABLET PO (09:09)
[2023-01-09] MEDS: atenoloL 100 MG TABLET PO (09:09)
--- NOTE | 2023-01-09 10:45 | PC.NURSE ---
Pt remains in overfow awaiting placement. Pt was A&O x2 this morning -confused about sittuation. Pt also appears disinterested in participating in care, and slept most of the morning. Had about 60% of breakfast. Will continue to monitor
--- NOTE | 2023-01-09 10:54 | MHC.EDTECH ---
Assisted patient with personal hygiene care. Lisette Horner
--- NOTE | 2023-01-09 14:12 | MHC.EDTECH ---
Assisted patient with personal hygiene. Changed patients gown and linen. Lisette Horner
[2023-01-09 17:13] VITALS: BP 125/58; PULSE 73; RESP 12; TEMP 36.1; O2SAT 97
--- NOTE | 2023-01-09 18:08 | PC.NURSE ---
Addendum entered by Renzo Haines RN 01/09/23 18:45: Ate about 60% of dinner Original Note: Magnolia had an uneventful day. No complaints voiced or noted by nursing staff. Magnolia slept for most of the day -getting up only to use the bedside commode and have meals. She ate about 40% of her lunch. Had 2 BMs
[2023-01-09] MEDS: Melatonin 3 MG TABLET 6 MG PO (20:18)
[2023-01-10 00:18] VITALS: BP 132/74; PULSE 73; RESP 16; TEMP 36.4; O2SAT 97
[2023-01-10] MEDS: Omeprazole 20 MG CAPSULE.DR PO (06:49)
[2023-01-10 10:19] VITALS: BP 138/74; PULSE 84; RESP 16; TEMP 36.8; O2SAT 97
[2023-01-10] MEDS: Acetaminophen 325 MG TABLET 650 MG PO ×2 (10:22→19:52)
[2023-01-10] MEDS: atenoloL 100 MG TABLET PO (10:23)
[2023-01-10] MEDS: OLANZapine 7.5 MG TABLET PO (10:23)
[2023-01-10] MEDS: Furosemide 40 MG TABLET PO (10:23)
[2023-01-10] MEDS: Losartan Potassium 50 MG TABLET 100 MG PO (10:23)
[2023-01-10] MEDS: Sertraline HCL 100 MG TABLET PO (10:23)
[2023-01-10] MEDS: amLODIPine Besylate 10 MG TABLET PO (10:24)
[2023-01-10] MEDS: Celecoxib 200 MG CAPSULE PO ×2 (10:24→19:52)
[2023-01-10 11:03] VITALS: BP 150/91; PULSE 71; RESP 16; TEMP 36.8; O2SAT 99
--- NOTE | 2023-01-10 12:45 | MHC.CM.ED ---
Patient remains in ER overflow unit. [email or web address] is not active per [facility] [place]. [facility] is still waiting for a return telephone call from [employer]. Per asya Constantino, they left another message on 01/09. Continue to monitor for d/c needs.
[2023-01-10 15:27] VITALS: BP 115/58; PULSE 65; RESP 14; TEMP 36.5; O2SAT 98
--- NOTE | 2023-01-10 16:29 | PC.NURSE ---
Assumed care of patient 15:00 Pt A+Ox1, clear speech, able to communicate needs Denies pain, no complaints at this time Respirations WNL, nonlabored, on room air Ambulates 1 assist pivot to commode
[2023-01-10] MEDS: Melatonin 3 MG TABLET 6 MG PO (19:52)
[2023-01-11 06:12] VITALS: BP 125/57; PULSE 85; RESP 12; TEMP 36.3; O2SAT 93
--- NOTE | 2023-01-11 08:11 | MHC.EDTECH ---
patient ate her breakfast 50%, up on recliner relaxing watching tv.
[2023-01-11 08:24] VITALS: BP 125/57; PULSE 66; RESP 14; TEMP 36.6; O2SAT 96
[2023-01-11] MEDS: OLANZapine 7.5 MG TABLET PO (08:25)
[2023-01-11] MEDS: Acetaminophen 325 MG TABLET 650 MG PO ×2 (08:25→21:13)
[2023-01-11] MEDS: Losartan Potassium 50 MG TABLET 100 MG PO (08:25)
[2023-01-11] MEDS: Celecoxib 200 MG CAPSULE PO ×2 (08:25→21:13)
[2023-01-11] MEDS: atenoloL 100 MG TABLET PO (08:25)
[2023-01-11] MEDS: amLODIPine Besylate 10 MG TABLET PO (08:26)
[2023-01-11] MEDS: Furosemide 40 MG TABLET PO (08:26)
[2023-01-11] MEDS: Sertraline HCL 100 MG TABLET PO (08:26)
--- NOTE | 2023-01-11 08:31 | PC.NURSE ---
Pt remains in overflow, ambulated with one assist to commode. Linens changed, pt resting comfortably in recliner.
--- NOTE | 2023-01-11 12:00 | PC.NURSE ---
Pt ambulated around overflow with PCT using cane
--- NOTE | 2023-01-11 14:04 | MHC.CM.ED ---
Patient remains in ER overflow unit. [employer] is still not active per [facility] [place]. No bed offers at this time. Continue to monitor for d/c needs.
[2023-01-11 16:16] VITALS: BP 111/66; PULSE 69; RESP 16; TEMP 36.5; O2SAT 97
[2023-01-12 05:22] VITALS: BP 143/79; PULSE 74; RESP 16; TEMP 36.8; O2SAT 98
[2023-01-12] MEDS: Omeprazole 20 MG CAPSULE.DR PO (07:22)
[2023-01-12 07:31] VITALS: BP 139/63; PULSE 67; RESP 18; TEMP 36.4; O2SAT 99
[2023-01-12] MEDS: Sertraline HCL 100 MG TABLET PO (07:32)
[2023-01-12] MEDS: Celecoxib 200 MG CAPSULE PO ×2 (07:32→20:34)
[2023-01-12] MEDS: OLANZapine 7.5 MG TABLET PO (07:32)
[2023-01-12] MEDS: atenoloL 100 MG TABLET PO (07:32)
[2023-01-12] MEDS: Furosemide 40 MG TABLET PO (07:32)
[2023-01-12] MEDS: amLODIPine Besylate 10 MG TABLET PO (07:32)
[2023-01-12] MEDS: Acetaminophen 325 MG TABLET 650 MG PO ×2 (07:33→20:33)
[2023-01-12] MEDS: Losartan Potassium 50 MG TABLET 100 MG PO (07:33)
--- NOTE | 2023-01-12 07:42 | PC.NURSE ---
Pt AOx1. Ate 60% breakfast. Morning meds admin crushed in pudding. Up and OOB to chair. Denies pain.
--- NOTE | 2023-01-12 13:10 | MHC.CM.ED ---
Met with pt to review placement details: Pt up in chair reading. Pt is still not active w/[facility] and cannot transfer to LTC until payor and bed offer secured. Pt acknowledges barriers: offers not complaints at this time. ED CM to follow.
[2023-01-12 14:00] VITALS: BP 105/55; PULSE 74; RESP 18; TEMP 36.3; O2SAT 94
--- NOTE | 2023-01-12 16:41 | PC.NURSE ---
PT ASSISTED TO BEDSIDE COMMODE, LG BM. IN BED AT THIS TIME.
--- NOTE | 2023-01-12 17:29 | MHC.EDTECH ---
Assist patient onto commode. Assist patient to wipe. Than assist patient back onto the bed. Bed alarm on.
[2023-01-12] MEDS: Melatonin 3 MG TABLET 6 MG PO (20:34)
[2023-01-12 22:00] VITALS: BP 108/58; PULSE 70; RESP 16; TEMP 36.6; O2SAT 94
--- NOTE | 2023-01-13 00:05 | PC.NURSE ---
Patient up to commode with assist. Small BM noted. Patient confused at baseline. Resting comfortable at present.
[2023-01-13] MEDS: Omeprazole 20 MG CAPSULE.DR PO (05:31)
[2023-01-13 05:56] VITALS: BP 148/70; PULSE 70; RESP 16; TEMP 36.2; O2SAT 98
--- NOTE | 2023-01-13 05:57 | MHC.EDTECH ---
0600 rounding done ,vitals sign taken pt sleeping and dry ,pt was reposition ,warm blanket given and fresh pitcher ice water given .
[2023-01-13] MEDS: Losartan Potassium 50 MG TABLET 100 MG PO (09:55)
[2023-01-13] MEDS: Acetaminophen 325 MG TABLET 650 MG PO ×2 (09:55→20:45)
[2023-01-13] MEDS: atenoloL 100 MG TABLET PO (09:56)
[2023-01-13] MEDS: amLODIPine Besylate 10 MG TABLET PO (09:56)
[2023-01-13] MEDS: Celecoxib 200 MG CAPSULE PO ×2 (09:56→20:45)
[2023-01-13] MEDS: Furosemide 40 MG TABLET PO (09:56)
[2023-01-13] MEDS: Sertraline HCL 100 MG TABLET PO (09:56)
[2023-01-13] MEDS: OLANZapine 7.5 MG TABLET PO (10:39)
--- NOTE | 2023-01-13 11:02 | PC.NURSE ---
Patient awake, alert, confused. Ate 25% of breakfast. Voided to bedside commode. OOB to recliner. Skin clean, dry, intact.
[2023-01-13 11:43] VITALS: BP 112/63; PULSE 52; RESP 16; O2SAT 95
[2023-01-13 13:32] VITALS: PULSE 62
--- NOTE | 2023-01-13 15:33 | PC.NURSE ---
Patient confused ,unable to say her name,sitting up in a chair,has no complaints,chair alarm on for safety.
[2023-01-13] MEDS: Melatonin 3 MG TABLET 6 MG PO (20:45)
[2023-01-13 22:34] VITALS: BP 133/78; PULSE 83; RESP 14; TEMP 36.8; O2SAT 92
--- NOTE | 2023-01-13 23:13 | PC.NURSE ---
Report received. Pt resting quietly with eyes closed. Respirations even and unlabored. No acute distress noted.
--- NOTE | 2023-01-14 00:50 | MHC.EDTECH ---
i got report from previous tech, Federica is sleeping peacefully
[2023-01-14 04:56] VITALS: BP 137/69; PULSE 71; RESP 16; TEMP 36.3; O2SAT 96
[2023-01-14 08:48] VITALS: BP 151/76; PULSE 65; RESP 17; TEMP 36.2; O2SAT 99
--- NOTE | 2023-01-14 09:06 | MHC.CM.ED ---
Addendum entered by Simran Foster 01/14/23 09:44: Received notification from [facility] that patient is accepted financially. Clinical updates sent as requested. Repeat Covid swab ordered. Original Note: Patient remains in ER overflow. [employer] not active per [facility] [place]. T/W reached out to [facility] to see if they have heard back from [employer] yet. Continue to monitor for d/c needs.
[2023-01-14] MEDS: Furosemide 40 MG TABLET PO (10:05)
[2023-01-14] MEDS: amLODIPine Besylate 10 MG TABLET PO (10:05)
[2023-01-14] MEDS: OLANZapine 7.5 MG TABLET PO (10:05)
[2023-01-14] MEDS: Acetaminophen 325 MG TABLET 650 MG PO ×2 (10:05→19:45)
[2023-01-14] MEDS: Celecoxib 200 MG CAPSULE PO ×2 (10:05→19:45)
[2023-01-14] MEDS: Sertraline HCL 100 MG TABLET PO (10:06)
[2023-01-14] MEDS: Losartan Potassium 50 MG TABLET 100 MG PO (10:06)
[2023-01-14] MEDS: atenoloL 100 MG TABLET PO (10:06)
[2023-01-14 11:24] LABS: IDNOW Serial# BCCEAD1C
[2023-01-14 11:25] LABS: COVID-19 Test Negative (Negative)
[2023-01-14 14:00] VITALS: BP 141/75; PULSE 72; RESP 18; TEMP 36.2; O2SAT 98
[2023-01-14 14:31] VITALS: BP 141/75; PULSE 72
--- NOTE | 2023-01-14 15:56 | MHC.EDTECH ---
pt ambulated to bathroom w 1x assist from t/w and walker. pt had 1 medium loose bm. pt walked back to bed, provided drink, snack, and warm blanket. pt speech incoherent but pt still able to follow direction from t/w.
[2023-01-14 19:15] VITALS: BP 98/54; PULSE 93; RESP 15; TEMP 36.1; O2SAT 96
--- NOTE | 2023-01-14 19:15 | MHC.CM.ED ---
Spoke with daughter, Teodora. Notified that [facility] is reviewing and has financially accepted her mother. [facility] reached out to [facility] [employer] for MH application. Now, is waiting for a bed offer. Teodora is agreeable to [facility] should they offer a bed. Teodora will meet with CM to discuss any updates tomorrow evening. Teodora will have surgery on Saturday. Expects to be hospitalized overnight. CM following for discharge planning.
[2023-01-14] MEDS: Melatonin 3 MG TABLET 6 MG PO (19:46)
[2023-01-15] MEDS: Omeprazole 20 MG CAPSULE.DR PO (05:59)
[2023-01-15 06:03] VITALS: BP 126/67; PULSE 56; RESP 15; TEMP 36.4; O2SAT 97
--- NOTE | 2023-01-15 06:15 | PC.NURSE ---
pt observed sleeping during the shift, arousable to voice, took medications in pudding
[2023-01-15] MEDS: Sertraline HCL 100 MG TABLET PO (10:18)
[2023-01-15] MEDS: Furosemide 40 MG TABLET PO (10:18)
[2023-01-15] MEDS: Losartan Potassium 50 MG TABLET 100 MG PO (10:18)
[2023-01-15] MEDS: Celecoxib 200 MG CAPSULE PO (10:18)
[2023-01-15] MEDS: Acetaminophen 325 MG TABLET 650 MG PO (10:19)
[2023-01-15] MEDS: amLODIPine Besylate 10 MG TABLET PO (10:19)
[2023-01-15] MEDS: OLANZapine 7.5 MG TABLET PO (10:19)
[2023-01-15] MEDS: atenoloL 100 MG TABLET PO (10:19)
--- NOTE | 2023-01-15 11:08 | PC.NURSE ---
Pt ate 25% of breakfast with assistance by this RN. Accepting to taking medication. Calm and cooperative.
--- NOTE | 2023-01-15 12:43 | PC.NURSE ---
Notified by case management Simran that pt will be going to [facility] today.
--- NOTE | 2023-01-15 13:06 | PC.NURSE ---
Report called to [facility] at 1300 today. EMS to lease picker to at 1400 today.
--- NOTE | 2023-01-15 13:16 | MHC.CM.ED ---
[facility] is able to offer a bed. [facility] booked for 2pm. Med nec with chart. Patient, Kayaky gaming RN and Molly ROY aware. Continue to monitor for d/c needs.
[2023-01-15 13:43] VITALS: BP 115/64; PULSE 69; RESP 16; TEMP 36.4; O2SAT 98
== END 2023-01-15 14:29 | disposition skilled nursing facility (03) ==
PROVIDERS: Internal Medicine; Physician Assistant; Physician Assistant Medical; Emergency Provider Emergency Medicine; PCP Family Medicine
DX: F03.911 Unspecified dementia, unspecified severity, with agitation (principal); R29.6 Repeated falls; R45.1 Restlessness and agitation; R19.7 Diarrhea, unspecified; E86.0 Dehydration; R55 Syncope and collapse; M25.562 Pain in left knee; M54.2 Cervicalgia; M25.561 Pain in right knee; R06.02 Shortness of breath; R51.9 Headache, unspecified; R26.81 Unsteadiness on feet; M25.462 Effusion, left knee; M25.461 Effusion, right knee; Z20.822 Contact with and (suspected) exposure to COVID-19; Z20.828 Contact with and (suspected) exposure to other viral communicable diseases; Z91.81 History of falling; Z79.899 Other long term (current) drug therapy
CPT/HCPCS: 0241U; 36415; 51701; 51702; 70450; 71045; 72125; 73560; 80048; 80053; 80076; 81001; 81003; 82140; 82550; 82947; 83605; 83735; 83880; 84484; 85025; 85610; 85730; 87040; 87635; 93005; 96361; 96374; 96375; 97161; 97530; 99285; J0696